=== PATIENT | female | born 1950 | race Caucasian/White ===

== ENCOUNTER 2017-09-07 07:16 | Day surgery (SDC) | payer MEDICARE ==
[2017-09-04 12:52] VITALS: BMI 16.1
[~2017-09-07 07:16] MED LIST: FLU VACC TS2017-18 (>65YR) 0.5 ML SYRINGE IM ONE
[2017-09-07 07:52] VITALS: BP 125/90; TEMP 98.6
--- NOTE | 2017-09-07 11:55 | SPC ---
FLUOROSCOPICALLY GUIDED RIGHT NEPHROSTOMY TUBE EXCHANGE ANTEGRADE RIGHT NEPHROSTOGRAM: 09/07/2017 HISTORY: A 66-year-old female with chronic right ureteral obstruction due to metastatic colon cancer and ovar maeve cancer. This is a routine, periodic nephrostomy tube exchange. TECHNIQUE: Signed informed consent was obtained. The patient requested that no Lidocaine be given because of t he pain the Lidocaine causes during the injection. The existing 8 Jamaican right nephrostomy catheter and the adjacent skin of the right flank were prepped and draped in the usual sterile fashion. The catheter was cut with sterile scissors. A 0.035 inch angled Glidewire was advanced through the exi sting catheter, and loops were formed in the right renal colectomy system. The existing nephrostomy catheter was removed over the guide wire. A new 8 Jamaican nephrostomy tube with soft internal stiff ener was advanced over the guide wire. The stiffener and guide wire were removed. The pigtail loop was formed and locked in place. Contrast was injected and aspirated back, and finally, the tube wa s flushed with normal saline. The patient tolerated the procedure well. No complications. The cat heter was not sutured in place. FINDINGS: Initial image demonstrates the guide wire looped in the right renal collecting system, after removal of the existing catheter. The subsequent series of images demonstrates the new nephrostomy cathete r within a contrast opacified, dilated right renal collecting system. The final image demonstrates post aspiration and post flush image. IMPRESSION: Successful exchange of the right 8 Jamaican nephrostomy tube. POS: [facility]
[2017-09-07] MEDS ORDERED: Iopamidol 370 76% 50 ML VIAL FS ONE (15:07)
== END 2017-09-07 09:45 | disposition home or self-care (01) ==
LOC: SPEC 07:16
PROVIDERS: ATTEND Urology
PROC: BT111ZZ Fluoroscopy of Right Kidney using Low Osmolar Contrast (ICD-10-PCS; principal; 2017-09-07)
PROC: 0T25X0Z Change Drainage Device in Kidney, External Approach (ICD-10-PCS; 2017-09-07)
DX: N13.2 Hydronephrosis with renal and ureteral calculous obstruction (principal); C56.9 Malignant neoplasm of unspecified ovary; C78.5 Secondary malignant neoplasm of large intestine and rectum; F17.200 Nicotine dependence, unspecified, uncomplicated
CPT/HCPCS: 50431; 50435; 75984; C1729; C1769

== ENCOUNTER 2017-10-17 10:30 | Outpatient (CLI) | payer MEDICARE ==
--- NOTE | 2017-10-19 10:30 | PET ---
PET CT: HISTORY: 67-year-old female with colorectal cancer, recent last chemotherapy 3 days ago. Exam requested for re staging. TECHNIQUE: PET scanning with CT attenuation correction was performed from the base of the brain through the prox imal thighs following the intravenous administration of 12 mCi F18-FDG in the right antecubital fossa . Imaging was performed after an uptake interval of 53 minutes. COMPARISON: PET CT dated 04/21/17. FINDINGS: There is continued hypermetabolic activity in the lung nodule in the superior segment of the left low er lobe with a SUV of 9.4 (previously 6.9). No new hypermetabolic lung nodules are seen. No uriel hypermetabolism is seen in the neck, mediastinum, hilar regions, axilla, abdomen, pelvis, or inguinal regions. No hypermetabolic liver, adrenal, or skeletal lesions are identified. There is physiologic activity in the GI and tracts, and visualized portions of the brain. The CT scan used for attenuation correction demonstrates no evidence of pleural effusions or ascites. Nonhypermetabolic pulmonary nodules are stable. A right nephrostomy tube is present. IMPRESSION: Persistent hypermetabolic activity in the left lower lobe lung nodule since 04/21/17 with interval in crease in FDG uptake/SUV. No new lesions are seen. POS: [facility]
== END 2017-10-17 10:31 | disposition home or self-care (01) ==
LOC: PET 10:30
PROVIDERS: ATTEND Internal Medicine Hematology & Oncology
DX: C18.5 Malignant neoplasm of splenic flexure (principal); R91.1 Solitary pulmonary nodule
CPT/HCPCS: 78815; A9552

== ENCOUNTER 2017-10-28 07:34 | Day surgery (SDC) | payer MEDICARE ==
[2017-10-27 09:36] VITALS: BMI 16.0
[2017-10-28 10:02] VITALS: BP 109/82; TEMP 98.6
--- NOTE | 2017-10-28 12:30 | SPC ---
RIGHT PERCUTANEOUS NEPHROSTOMY TUBE REPLACEMENT AND NEPHROSTOGRAM: 10/28/2017 HISTORY: Patient with metastatic colon cancer and right ureteral obstruction. FLUOROSCOPY: Total time is 1.6 minutes with a total dose of 2144 mGy per cm2. TECHNIQUE: After informed consent was obtained, the patient was placed on the angiography table in the prone pos ition. The patient was on Levaquin p.o. prior to this procedure. The right nephrostomy tube and juanita rounding area were meticulously prepped and draped in the usual sterile fashion. The catheter was cl amped and punctured with an 18 gauge needle, and a nephrostogram was performed, demonstrating the coi led portion of the catheter within the right renal pelvis. The catheter was then cut and exchanged o ekaterina an 0.035 inch Prince guide wire for a new 8 Sudanese nephrostomy tube, which was also coiled within the renal pelvis. Contrast injection confirmed placement within the renal pelvis. A small amount o f contrast was injected via the nephrostomy tube, and contrast was noted to flow into the urinary lynnette dder without evidence of obstruction. The nephrostomy tube was flushed and then placed to gravity dr neal. The patient requested that the nephrostomy tube not be secured with suture material. As a r esult, a dry, sterile dressing was placed. The patient was transported to [facility] prior to discharge. FINDINGS: The patient has a right-sided nephrostomy tube in place. A new 8 Sudanese nephrostomy tube was success fully placed. Nephrostogram demonstrated tortuosity of the proximal right ureter, but contrast does extend down the ureter and subsequently into the urinary bladder without forceful injection. IMPRESSION: 1. Technically successful right nephrostomy tube replacement. 2. Contrast injection demonstrates flow of contrast into the urinary bladder without a forceful inje ction. POS: [facility]
--- NOTE | 2017-10-30 11:27 | SPC ---
RIGHT PERCUTANEOUS NEPHROSTOMY TUBE REPLACEMENT AND NEPHROSTOGRAM: 10/28/2017 HISTORY: Patient with metastatic colon cancer and right ureteral obstruction. FLUOROSCOPY: Total time is 1.6 minutes with a total dose of 2144 mGy per cm2. TECHNIQUE: After informed consent was obtained, the patient was placed on the angiography table in the prone pos ition. The patient was on Levaquin p.o. prior to this procedure. The right nephrostomy tube and juanita rounding area were meticulously prepped and draped in the usual sterile fashion. The catheter was cl amped and punctured with an 18 gauge needle, and a nephrostogram was performed, demonstrating the coi led portion of the catheter within the right renal pelvis. The catheter was then cut and exchanged o ekaterina an 0.035 inch Prince guide wire for a new 8 Australian nephrostomy tube, which was also coiled within the renal pelvis. Contrast injection confirmed placement within the renal pelvis. A small amount o f contrast was injected via the nephrostomy tube, and contrast was noted to flow into the urinary lynnette dder without evidence of obstruction. The nephrostomy tube was flushed and then placed to gravity dr neal. The patient requested that the nephrostomy tube not be secured with suture material. As a r esult, a dry, sterile dressing was placed. The patient was transported to [facility] prior to discharge. FINDINGS: The patient has a right-sided nephrostomy tube in place. A new 8 Australian nephrostomy tube was success fully placed. Nephrostogram demonstrated tortuosity of the proximal right ureter, but contrast does extend down the ureter and subsequently into the urinary bladder without forceful injection or pain. IMPRESSION: 1. Technically successful right nephrostomy tube replacement. 2. Contrast injection demonstrates flow of contrast into the urinary bladder without a forceful inje ction.
== END 2017-10-28 10:15 | disposition home or self-care (01) ==
LOC: SPEC 07:34
PROVIDERS: ATTEND Urology
PROC: 0T25X0Z Change Drainage Device in Kidney, External Approach (ICD-10-PCS; principal; 2017-10-28)
DX: N13.1 Hydronephrosis with ureteral stricture, not elsewhere classified (principal); C18.9 Malignant neoplasm of colon, unspecified
CPT/HCPCS: 50434; C1729; 50431; 50435

== ENCOUNTER 2017-12-29 07:14 | Day surgery (SDC) | payer MEDICARE ==
[2017-12-28 14:03] VITALS: BMI 16.0
[~2017-12-29 07:14] MED LIST changes: +Prevnar 13-Val Conj/PF 0.5 ML SYRINGE IM ONE
[2017-12-29 08:58] VITALS: BP 124/73; TEMP 98.8
--- NOTE | 2017-12-29 09:38 | SPC ---
NEPHROSTOMY EXCHANGE: HISTORY: Chronic right-sided hydronephrosis. Metastatic colon cancer with right ureteral obstruction. FLUOROSCOPY TIME: 1.2 minutes, 4724 mGy*^cm2. FINDINGS: Technically successful right nephrostomy exchange. An 8 Palestinian nephrostomy catheter was exchanged fo r another 8 Palestinian catheter. TECHNIQUE: Consent was obtained. The patient was placed on the angiographic table in prone position. The nephr ostomy was prepped and draped in sterile fashion. A nephrostogram was performed demonstrating the co iled portion of the catheter to be in the right intrarenal collecting system. The catheter was then cut and exchanged over a 0.035 short Amplatz wire for a new 8 Palestinian nephrostomy tube which was coile d within the intrarenal collecting system, at the level of the ureteropelvic junction. Contrast inje ction confirmed placement within each renal collecting system. Nephrostomy was then placed to gravit y. IMPRESSION: Successful right nephrostomy tube replacement. POS: [facility]
== END 2017-12-29 09:20 | disposition home or self-care (01) ==
LOC: SPEC 07:14
PROVIDERS: ATTEND Urology
PROC: 0T25X0Z Change Drainage Device in Kidney, External Approach (ICD-10-PCS; principal; 2017-12-29)
DX: N13.1 Hydronephrosis with ureteral stricture, not elsewhere classified (principal); C18.9 Malignant neoplasm of colon, unspecified; F17.210 Nicotine dependence, cigarettes, uncomplicated; Z90.49 Acquired absence of other specified parts of digestive tract; Z98.890 Other specified postprocedural states; Z90.710 Acquired absence of both cervix and uterus; Z82.49 Family history of ischemic heart disease and other diseases of the circulatory system
CPT/HCPCS: 50431; 50435; 75984; C1729

== ENCOUNTER 2018-02-19 14:56 | Inpatient (IN) | payer MEDICARE ==
[~2018-02-19 14:56] MED LIST changes: -FLU VACC TS2017-18 (>65YR) 0.5 ML SYRINGE IM ONE; +ISOVUE-370 76%-LOCM 1 ML ONE; -Prevnar 13-Val Conj/PF 0.5 ML SYRINGE IM ONE
[2018-02-19] MEDS ORDERED: Ondansetron ODT 4 MG TAB ONE ×2 (15:11→17:06)
[2018-02-19 15:37] LABS: #Eosinphils 0.1 thou/uL (0.0-0.7); #Lymphocytes 1.4 thou/uL (1.20-3.40); #Monocytes 0.5 thou/uL (0.11-0.59); #Neutrophils 6.8 thou/uL (1.40-6.50); %Basophils 0.5 % (0.0-1.0); %Eosinophils 0.6 % (0.0-10.0); %Lymphocytes 16.4 % (21.0-51.0); %Monocytes 5.7 % (0.0-10.0); %Neutrophils 76.8 % (42.0-75.0); Hemoglobin 13.9 g/dL (12.0-16.0); Mean Corpuscular HGB CONC 33.7 g/dL (32.0-36.0); Mean Platelet Volume 6.3 fL (7.4-10.4); Platelet Count 173 thou/uL (130-400); RBC Distribution Width 12.8 % (11.5-14.5); Red Blood Cell (RBC) Count 4.49 mill/uL (4.20-5.40); White Blood Cell (WBC) Count 8.8 thou/uL (4.8-10.8)
[2018-02-19] MEDS ORDERED: Ondansetron HCl/PF 4 MG/2 ML Vial ONE (15:51)
[2018-02-19] MEDS ORDERED: Lidocaine 1% PF 5 ML VIAL ONE (15:51)
[2018-02-19] MEDS ORDERED: PROPOFOL 200 MG/20 ML VIAL ONE (15:51)
[2018-02-19] MEDS ORDERED: Succinylcholine Chloride 20 MG/ML 10 ml SYRINGE FS ONE (15:51)
[2018-02-19] MEDS ORDERED: Glycopyrrolate 0.2 MG/ML 5 ML SYRINGE ONE (15:51)
[2018-02-19] MEDS ORDERED: Dexamethasone 20 MG/5 ML VIAL ONE (15:51)
[2018-02-19] MEDS ORDERED: PHENYLEPHRINE-NS 100 MCG/ML 10 ML SYRINGE ONE (15:51)
[2018-02-19 16:04] LABS: ALT (SGPT) 31 U/L (8-55); AST (SGOT) 33 U/L (5-34); Albumin 4.2 g/dL (3.4-4.8); Alkaline Phosphatase 250 U/L (40-150); Anion Gap 17 mmol/L (10-20); BUN (Urea Nitrogen) 23 mg/dL (9.8-20.1); Bilirubin, Total 0.6 mg/dL (0.2-1.2); Calc. Creatinine Clearance 0 mL/min (70-130); Calcium 10.2 mg/dL (7.8-10.44); Carbon Dioxide 24 mmol/L (23-31); Chloride 101 mmol/L (98-107); Estimated GFR-MDRD 37; Globulin 3.4 g/dL (2.4-3.5); Glucose 143 mg/dL (80-115); Lipase 39 U/L (8-78); Potassium 3.9 mmol/L (3.5-5.1); Protein, Total 7.6 g/dL (6.0-8.3); Sodium 138 mmol/L (136-145)
[2018-02-19] MEDS ORDERED: Morphine 4 MG/ML VIAL ONE (17:06)
[2018-02-19] MEDS ORDERED: Ondansetron ODT 8 MG TAB ONE (17:09)
[2018-02-19] MEDS ORDERED: cefOXitin 2 GM, Syringe 1 ML in Sterile Water 10 ML SLOW IVP SCH (19:00)
[2018-02-19 19:01] LABS: Bilirubin Negative (Negative); Blood, Urine Trace (Negative); Clarity CLEAR (Clear); Glucose, Urine (Dipstick) Negative (Negative); Leukocyte Small (Negative); Nitrite Positive (Negative); Protein, Urine (Dipstick) 30 mg/dL (Neg-Trace)
[2018-02-19 19:04] LABS: Bacteria/HPF Rare-Few HPF (None Seen); Hyaline Casts/LPF 0-3 HYALINE CAST LPF (0-3 Hyaline); Pathc Cast-AUWi Flag 0.29 (0-2.49); Squamous Epithelial None Seen HPF (0-3); WBC/HPF 21-50 HPF (0-3)
[2018-02-19 19:06] LABS: Specific Gravity, Urine Greater than 1.060 (1.002-1.036)
--- NOTE | 2018-02-19 19:07 | CT ---
CT ABDOMEN AND PELVIS WITH IV CONTRAST 02/19/18 HISTORY: Abdominal pain. Multiple previous surgeries. COMPARISON: 02/23/17. FINDINGS: Emphysematous changes and calcified granulomata are apparent at the lung bases. Hemangiomas within th e liver are again seen. Gallbladder is surgically absent with distention of the biliary system. Long standing right percutaneous nephrostomy drain remains in good position with decompression of the righ t renal collecting system. Urinary bladder is decompressed. There is calcification in the arterial structures. Degenerative patterson ges of the lumbar spine. Lack of oral contrast limits evaluation of the bowel. Postoperative changes are apparent. Just above the dome of the urinary bladder, adjacent loops of small bowel are somewhat distended, measuring up t o 3.0 cm with a small amount of adjacent fluid. IMPRESSION: 1. Focal adjacent loops of dilated small bowel within the lower anterior pelvis having the appea jelly of a closed loop obstruction. Extensive postoperative changes of the bowel are also evident. Pl ease consider surgical evaluation. 2. Other chronic type findings are stable. POS: [facility]
[2018-02-19] MEDS ORDERED: Fentanyl 100 MCG/2 ML VIAL ONE ×2 (19:12→21:01)
[2018-02-19] MEDS ORDERED: Fentanyl 250 MCG/5 ML VIAL ONE (19:23)
[2018-02-19] MEDS ORDERED: SUGAMMADEX SODIUM 500 MG/5 ML VIAL ONE (20:32)
[2018-02-19] MEDS ORDERED: Zolpidem Tartrate 5 MG TAB PO PRN (20:33)
[2018-02-19] MEDS ORDERED: Promethazine HCl 25 MG/ML VIAL IM PRN ×3 (20:33→22:21)
[2018-02-19] MEDS ORDERED: Ondansetron HCl/PF 4 MG/2 ML Vial IVP PRN ×3 (20:33→22:21)
[2018-02-19] MEDS ORDERED: diphenhydrAMINE 50 MG/ML VIAL IVP PRN (20:33)
[2018-02-19] MEDS ORDERED: diphenhydrAMINE 50 MG/ML VIAL IM PRN (20:33)
[2018-02-19] MEDS ORDERED: diphenhydrAMINE 25 MG CAP PO PRN (20:33)
[2018-02-19] MEDS ORDERED: Promethazine HCl 25 MG/ML VIAL SLOW IVP PRN (20:33)
[2018-02-19] MEDS ORDERED: Fentanyl 5000 MCG/250 ML CADD IVPB PRN (20:33)
[2018-02-19] MEDS ORDERED: Naloxone HCl 0.4 mg/ml Vial IV PRN (20:33)
[2018-02-19] MEDS ORDERED: Labetalol HCl 100 MG/20 ML VIAL SLOW IVP PRN (20:43)
[2018-02-19] MEDS ORDERED: fentaNYL Citrate/PF 2,000 MCG in Sodium Chloride 0.9% 60 ML IV PRN (20:45)
[2018-02-19] MEDS ORDERED: Communication Order-Pharmacy FS SCH (20:45)
--- NOTE | 2018-02-19 21:27 | HP ---
DATE OF ADMISSION: 02/19/2018 CHIEF COMPLAINT: Abdominal pain. HISTORY OF PRESENT ILLNESS: Ms. Pinon is a 67-year-old female with a history of known colon cancer operated on her colon twice. She had an anastomotic recurrence. She has metastatic to lung and darvin er. She has evidence of right uretero-chronic obstruction and has percutaneous nephrostomy tube in [facility] by Dr. Scruggs. She presents with acute onset of severe sharp mid-lower abdominal pain that is crampy, severe, associated with nausea, but no vomiting. Seen in the emergency department where labs are normal, she is tachycardic. She has had normotensive, but her CT shows closed-loop obstruction. She has not had previous small bowel obstructions. PAST MEDICAL HISTORY: Includes colon cancer. PAST SURGICAL HISTORY: As above. MEDICINES TAKEN DAILY: P.r.n. Zofran, p.r.n. Tylenol. ALLERGIES TO MEDICINES: No known drug allergies. SOCIAL HISTORY: No smoking, alcohol, or other drugs. REVIEW OF SYSTEMS: Ten-system review of systems, otherwise negative unless described above. PHYSICAL EXAMINATION: VITAL SIGNS: Her pulse is 100, her respirations are 12, her blood pressure is 120/80. She is afebri le. HEENT: Sclerae anicteric. Oropharynx clear. NECK: No lymphadenopathy. CHEST: Clear. HEART: Regular rate and rhythm. ABDOMEN: Soft, distended, lower abdominal guarding, and peritoneal signs. No abdominal or inguinal hernias. EXTREMITIES: No ischemia or edema to extremities. LABORATORY DATA: Sodium 138, potassium 3.9, creatinine 1.4. White blood cell count is 8, hemoglobin 13, platelet count is 173. CT scan as above. ASSESSMENT: 1. Closed-loop obstruction, small-bowel obstruction. 2. History of colon cancer. PLAN: Exploratory laparotomy urgently. Risks, benefits, alternatives discussed. She gives consent, we will do this tonight.
[2018-02-19] MEDS ORDERED: Dextrose 50% Abboject 50 ML SYRINGE SLOW IVP PRN (22:21)
[2018-02-19] MEDS ORDERED: cefOXitin 2 GM in Sodium Chloride 0.9% 100 ML IVPB SCH (22:21)
[2018-02-19] MEDS ORDERED: Acetaminophen 1,000 MG in Premix Bag 1 BAG IVPB PRN (22:21)
[2018-02-19] MEDS ORDERED: Famotidine/PF 20 mg/2ml Vial SLOW IVP SCH (22:21)
[2018-02-19] MEDS ORDERED: Dextrose 5% in Water 1,000 ML IV PRN (22:21)
[2018-02-19] MEDS ORDERED: hydrALAZINE 20 MG/ML VIAL SLOW IVP PRN (22:21)
[2018-02-19] MEDS: D5 1/2 NS w/20 mEq KCL 1,000 ML IV SCH (23:01)
[2018-02-19] MEDS ORDERED: Pantoprazole 40 MG VIAL IVP SCH (23:15)
--- NOTE | 2018-02-19 23:33 | OP ---
DATE OF PROCEDURE: 02/19/2018 PREOPERATIVE DIAGNOSIS: Closed loop small-bowel obstruction. POSTOPERATIVE DIAGNOSIS: Closed loop small-bowel obstruction. PROCEDURE: Exploratory laparotomy, lysis of interloop adhesions. SURGEON: Destin Mendoza M.D. ANESTHESIA: General. ESTIMATED BLOOD LOSS: Minimal. COMPLICATIONS: None. FINDINGS: There is a loop of small intestine that has gangrenous changes. After the intestine, the adhesion was cut and it was unraveled, the ischemia does go away. There is no evidence of perforatio n or end-organ damage or gangrene. TECHNIQUE: The patient was taken to the operating room and placed supine on the table. After genera l anesthetic was obtained, a Parekh was placed and NG tube was placed. The abdomen was prepped and dr aped in a sterile fashion. Midline incision is made above to below umbilicus. Cautery was used diss ect down to carefully into the abdominal cavity without injury. There were no intra-abdominal adhesi ons to the posterior peritoneum. However, there were couple interloop adhesions that were taken down . There was a gangrenous appearing segment in the lower abdomen that was pulled up in the wound. Th e adhesion was cut, allowing it to untwist, it was then watched for approximately 5-10 minutes and th e gangrenous changes went away. It was only ischemic. All other adhesions were taken down in the ab domen there were not many others. There was no evidence of perforation or damage to the segment of b owel. There was no perforation, no intraabdominal infection or obvious malignancy. The abdomen is i rrigated using sterile solution. Seprafilm was left on top of intra-abdominal structures before clos ure. PDS was used to close the fascial defect from the top and bottom tied in the middle. Subcutane ous tissues were irrigated and closed using 3-0 Vicryl, 4-0 Monocryl, and Dermabond. The patient was en route to recovery in stable condition. All instrument counts, needle counts, lap counts are jeimy ect.
[2018-02-20] MEDS ORDERED: cefOXitin 2 GM, Syringe 1 ML in Sterile Water 10 ML SLOW IVP SCH (04:00)
[2018-02-20] MEDS: D5 1/2 NS w/20 mEq KCL 1,000 ML IV SCH ×3 (05:05→16:49)
[2018-02-20 06:13] LABS: Anion Gap 11 mmol/L (10-20); BUN (Urea Nitrogen) 27 mg/dL (9.8-20.1); Calc. Creatinine Clearance 23 mL/min (70-130); Calcium 9.2 mg/dL (7.8-10.44); Carbon Dioxide 23 mmol/L (23-31); Chloride 108 mmol/L (98-107); Estimated GFR-MDRD 30; Glucose 210 mg/dL (80-115); Sodium 137 mmol/L (136-145)
[2018-02-20 06:21] LABS: Band 34 % (5-11); Hemoglobin 13.7 g/dL (12.0-16.0); Lymphocytes 5 % (21-51); MDiff Complete? YES; Mean Corpuscular HGB CONC 33.7 g/dL (32.0-36.0); Mean Platelet Volume 6.3 fL (7.4-10.4); Monocytes 24 % (0-10); Myelocyte 3 % (0-0); Neutrophil 34 % (42-75); PLT Morphology Comment Appears Adequate; Platelet Count 158 thou/uL (130-400); RBC Distribution Width 12.9 % (11.5-14.5); RBC Morphology Normal; Red Blood Cell (RBC) Count 4.41 mill/uL (4.20-5.40); White Blood Cell (WBC) Count 6.5 thou/uL (4.8-10.8)
[2018-02-20] MEDS ORDERED: cefOXitin Sodium 1 GM in Sodium Chloride 0.9% 100 ML IVPB SCH (09:30)
--- NOTE | 2018-02-20 09:31 | PDOC.GSPN ---
Surgery Progress Note: Subj - Subjective Narrative: POD#1 ex lap for closed loop obstruction. No nausea. C/O incisional pain Surgery Progress Note: Obj - Vital signs Vital signs: Vital Signs - Most Recent Temp Pulse Resp BP Pulse Ox 98.4 F 105 H 18 123/76 95 02/20/18 07:43 02/20/18 07:43 02/20/18 07:43 02/20/18 07:43 02/20/18 07:43 - Physical Exam General: no distress Cardiovascular: regular rate and rhythm Respiratory: clear to auscultation Abdomen: soft, decreased bowel sounds, appropriately tender Wound: dressing clean,dry,intact Surgery Progress Note: Results - Labs Result Diagrams: 02/20/18 05:29 02/20/18 05:29 Lab results: Laboratory Results - last 24 hr 02/20/18 02/20/18 05:29 05:29 WBC 6.5 RBC 4.41 Hgb 13.7 Hct 40.6 MCV 92.0 MCH 31.0 MCHC 33.7 RDW 12.9 Plt Count 158 MPV 6.3 L Neutrophils % (Manual) 34 L Band Neuts % (Manual) 34 H Lymphocytes % (Manual) 5 L Monocytes % (Manual) 24 H Myelocytes % 3 H Plt Morphology Comment Appears Adequate RBC Morph Comment Normal Sodium 137 Potassium 5.0 Chloride 108 H Carbon Dioxide 23 Anion Gap 11 BUN 27 H Creatinine 1.72 H Estimated GFR (MDRD) 30 Glucose 210 H Calcium 9.2 Surgery Progress Note: A/P - Problem (1) Small bowel obstruction with strangulation or infarction Current Visit: Yes Code(s): [id number] - Status: Acute Assessment and Plan: DC NG, keep chatterjee till tomorrow. Mobilize today. Start clears tomorrow if doing well. Creatinine up to 1.7 not on any nephrotoxic drugs.
[2018-02-20] MEDS ORDERED: cefOXitin Sodium 1 GM, Syringe 0.5 ML in Sterile Water 10 ML SLOW IVP SCH (10:00)
[2018-02-20] MEDS: cefOXitin Sodium 1 GM, Syringe 0.5 ML in Sterile Water 10 ML SLOW IVP SCH ×2 (13:44→21:14)
[2018-02-20 18:07] LABS: Anion Gap 14 mmol/L (10-20); BUN (Urea Nitrogen) 23 mg/dL (9.8-20.1); Calc. Creatinine Clearance 45 mL/min (70-130); Calcium 8.9 mg/dL (7.8-10.44); Carbon Dioxide 18 mmol/L (23-31); Chloride 108 mmol/L (98-107); Estimated GFR-MDRD 66; Glucose 142 mg/dL (80-115); Sodium 135 mmol/L (136-145)
[2018-02-20] MEDS ORDERED: Pantoprazole 40 MG VIAL IVP SCH (21:00)
[2018-02-20] MEDS: Heparin 5,000 UNITS/ML VIAL SC SCH (21:14)
[2018-02-21 04:36] LABS: Anion Gap 8 mmol/L (10-20); BUN (Urea Nitrogen) 17 mg/dL (9.8-20.1); Calc. Creatinine Clearance 55 mL/min (70-130); Calcium 9.1 mg/dL (7.8-10.44); Carbon Dioxide 25 mmol/L (23-31); Chloride 105 mmol/L (98-107); Estimated GFR-MDRD 82; Glucose 115 mg/dL (80-115); Potassium 4.7 mmol/L (3.5-5.1); Sodium 133 mmol/L (136-145)
[2018-02-21 05:05] LABS: #Monocytes 0.3 thou/uL (0.11-0.59); #Neutrophils 6.3 thou/uL (1.40-6.50); %Basophils 0.2 % (0.0-1.0); %Eosinophils 0.1 % (0.0-10.0); %Lymphocytes 12.7 % (21.0-51.0); %Monocytes 4.1 % (0.0-10.0); %Neutrophils 82.9 % (42.0-75.0); Hemoglobin 10.6 g/dL (12.0-16.0); Mean Corpuscular Hemoglobin 32.2 pg (27.0-31.0); Mean Corpuscular Volume 94.7 fl (81.0-99.0); Mean Platelet Volume 6.9 fL (7.4-10.4); PLT Morphology Comment Appears Decreased; Platelet Count 110 thou/uL (130-400); RBC Distribution Width 12.9 % (11.5-14.5); RBC Morphology Normal; White Blood Cell (WBC) Count 7.6 thou/uL (4.8-10.8)
[2018-02-21] MEDS: cefOXitin Sodium 1 GM, Syringe 0.5 ML in Sterile Water 10 ML SLOW IVP SCH ×2 (05:48→16:10)
[2018-02-21] MEDS: Heparin 5,000 UNITS/ML VIAL SC SCH (09:32)
[2018-02-21] MEDS: D5 1/2 NS w/20 mEq KCL 1,000 ML IV SCH (09:38)
--- NOTE | 2018-02-21 13:00 | PDOC.EVN ---
Event Note - Event Note Event Note: Called because patient tachy to 140's 150's. Complaining of persistent severe abdominal pain. BP normal but now having more dyspnea. Abdomen tender mostly incisional. WBC more normal today. Creatinine normal in am. Plan second look laparotomy to rule out persistent or worsening ischemia to mid small bowel. If negative plan CT chest to rule out PE. Risks, benefits, alternatives discussed.
[2018-02-21] MEDS ORDERED: Norepinephrine 8 MG/0.9% NS 250 ML ONE (13:54)
[2018-02-21] MEDS ORDERED: Sedation Protocol FS ONE (14:49)
[2018-02-21] MEDS ORDERED: Promethazine HCl 25 MG/ML VIAL IM PRN (14:49)
[2018-02-21] MEDS ORDERED: Dextrose 5% in Water 1,000 ML IV PRN (14:49)
[2018-02-21] MEDS ORDERED: Dextrose 50% Abboject 50 ML SYRINGE SLOW IVP PRN (14:49)
[2018-02-21] MEDS ORDERED: HumaLOG 300 UNITS/3 ML VIAL SC PRN (14:49)
[2018-02-21] MEDS ORDERED: hydrALAZINE 20 MG/ML VIAL SLOW IVP PRN (14:49)
[2018-02-21] MEDS ORDERED: Ondansetron HCl/PF 4 MG/2 ML Vial IVP PRN (14:49)
[2018-02-21] MEDS ORDERED: Norepinephrine 8 MG/0.9% NS 250 ML IVPB SCH (15:00)
[2018-02-21] MEDS ORDERED: Fentanyl 100 MCG/2 ML VIAL ONE (15:07)
--- NOTE | 2018-02-21 15:30 | RAD ---
CHEST 1 VIEW: Date: 02/21/18 HISTORY: Chest pain. Intubated. COMPARISON: 02/23/14. FINDINGS: Cardiac silhouette is magnified by projection. Pulmonary vasculature is unremarkable. Mediastinum is midline. Tip of an endotracheal catheter overlies the thoracic inlet. Nasogastric tube descends to th e stomach. Right internal jugular Port-A-Cath is in place. Calcified granulomata throughout the lungs are consistent with healed granulomatous disease. Small amount of bilateral pleural fluid with bibas ilar atelectasis. manager fleet leads overlie the chest. IMPRESSION: 1. Small bilateral pleural effusions. 2. Endotracheal catheter is in good radiographic position. POS: [facility]
--- NOTE | 2018-02-21 15:36 | OP ---
DATE OF PROCEDURE: 02/21/2018 PREOPERATIVE DIAGNOSES: Peritonitis, tachycardia, dyspnea. POSTOPERATIVE DIAGNOSES: Gangrenous changes to the small bowel mesentery with patchy areas of minima l necrosis. PROCEDURES PERFORMED: Exploratory laparotomy, small bowel resection. SURGEON: Danielle Mendoza ANESTHESIA: General. ESTIMATED BLOOD LOSS: Minimal. COMPLICATIONS: None. SPECIMEN: Small bowel. FINDINGS: In the area of previous ischemic change, the small bowel as a whole appears viable; howeve r, the mesentery appears gangrenous with some air trapped under the mesenteric peritoneum, there may be some patchy areas of necrosis on the mesenteric border of the small bowel. TECHNIQUE: The patient was taken to the operating room and placed supine on the table. After genera l anesthetic was obtained, the abdomen was prepped and draped in a sterile fashion. Midline incision reopened into the abdominal cavity. Small bowel eviscerated. The previous small bowel ischemic are a, the antimesenteric side appears viable; however, on the mesenteric side, there is evidence of gang renous type changes to the mesenteric fat. There is some air trapped in the fat as well, but there i s a significant amount of turbid-looking fluid in the abdomen. The abdomen is irrigated copiously us ing sterile solution. There was no evidence of perforation. A KRIS-75 stapler was fired proximally a nd distally to this area of previous ischemia and mesenteric changes. The mesentery is taken using t he impact LigaSure. Small bowel was able to be brought up along itself in an antimesenteric fashion and enterotomies were made on the antimesenteric and KRIS-75 was used to form the anastomosis. GA-60 is closed to close the common enterotomy. Interrupted silk sutures used to invert the ends placed in the crotch and closed the mesenteric defect. The staple line appears viable. The abdomen was irrig ated until returns are clear. The small bowel was placed back in its normal orientation. All instru ment counts, needle counts, lap counts are correct. PDS was used to close the fascial defect from to p and bottom and tied in the middle. Subcutaneous tissues were irrigated and closed using estrada. The patient en route to the ICU in critical, but stable condition. All instrument counts, needle cou nts, lap counts are correct.
[2018-02-21] MEDS ORDERED: Propofol 1,000 MG/100 ML VIAL IV ONE (15:42)
[2018-02-21] MEDS ORDERED: DISCONTINUE PREVIOUS NARCOTIC PAIN MEDICATIONS AND BENZODIAZEPINES FS SCH (15:48)
[2018-02-21] MEDS ORDERED: Fentanyl BOLUS 250 ML IVPB PRN (15:48)
[2018-02-21] MEDS ORDERED: Lorazepam 2 MG/ML VIAL SLOW IVP PRN (15:48)
[2018-02-21] MEDS ORDERED: fentaNYL Citrate/PF 2,000 MCG in Sodium Chloride 0.9% 60 ML IV SCH (15:48)
[2018-02-21] MEDS ORDERED: Propofol 1,000 MG/100 ML VIAL IV PRN (15:48)
[2018-02-21] MEDS ORDERED: Morphine 4 MG/ML VIAL SLOW IVP PRN (15:50)
[2018-02-21] MEDS ORDERED: TETANUS AND DIPHTHERIA TOX/PF 0.5 ML DISP.SYRIN IM ONE (16:00)
[2018-02-21 16:04] LABS: Actual Bicarbonate (HCO3a) 23.1 mEq/L (22-26); Base Excess (BEa) -2.9 mEq/L (0 (+/-) 2.5); CO2 Tension 44.7 mmHg (35.0-45.0); Hemoglobin (Hb) 10.7 g/dL (12.0-16.0); pH, Arterial 7.33 (7.35-7.45)
[2018-02-21 16:05] LABS: ALV-art Gradient 302.925 (0-20); Calcium, Ionized 1.3 mmol/L (1.12-1.30); Puncture Site RRA
[2018-02-21] MEDS: Sodium Chloride 0.9% 1,000 ML IV SCH ×2 (16:08→23:52)
[2018-02-21] MEDS ORDERED: Adacel (T-DAP) 0.5 ML VIAL IM ONE (16:15)
[2018-02-21] MEDS ORDERED: PROPOFOL 200 MG/20 ML VIAL ONE (17:07)
[2018-02-21] MEDS ORDERED: Lidocaine 1% PF 5 ML VIAL ONE (17:07)
[2018-02-21] MEDS: Piperacillin/Tazobactam 3.375 GM in Sodium Chloride 0.9% 100 ML IVPB SCH ×2 (18:06→23:51)
[2018-02-21] MEDS: Enoxaparin Sodium 40 MG/0.4 ML SYRINGE SC SCH (20:37)
[2018-02-22] MEDS: Piperacillin/Tazobactam 3.375 GM in Sodium Chloride 0.9% 100 ML IVPB SCH ×3 (05:43→17:18)
[2018-02-22 06:28] LABS: Actual Bicarbonate (HCO3a) 22.8 mEq/L (22-26); Base Excess (BEa) -2.8 mEq/L (0 (+/-) 2.5); CO2 Tension 42.9 mmHg (35.0-45.0); Hematocrit-ABG 24.6 % (36.0-47.0); O2 Tension (PaO2) 91.6 mmHg (80.0-100.0); pH, Arterial 7.34 (7.35-7.45)
[2018-02-22 06:29] LABS: ALV-art Gradient 137.975 (0-20); Calcium, Ionized 1.3 mmol/L (1.12-1.30); Puncture Site RR
--- NOTE | 2018-02-22 08:13 | RAD ---
SINGLE VIEW OF CHEST: Date: 02/22/18 COMPARISON: 02/21/18. HISTORY: Ventilated patient with respiratory failure. FINDINGS: Single view of the chest shows cardiomediastinal silhouette which is upper limits of normal in size. Lines and tubes are unchanged in position. MediPort is unchanged in position. There appear to be smal l bilateral pleral effusions, unchanged. IMPRESSION: Stable exam with small bilateral pleural effusions. POS: [facility]
[2018-02-22] MEDS: Pantoprazole 40 MG VIAL IVP SCH (08:14)
[2018-02-22] MEDS: Sodium Chloride 0.9% 1,000 ML IV SCH ×2 (08:15→17:18)
--- NOTE | 2018-02-22 09:21 | CON ---
DATE OF CONSULTATION: 02/21/2018 HISTORY OF PRESENT ILLNESS: Estee Pinon is a 67-year-old female, status post lap. She was taken to surgery on 02/19/2018 with abdominal pain, extensive history is well outlined by Dr. Mendoza, closed loop obstruction, small-bowel obstruction, history of colon cancer. She is doing well postop. She had ongoing abdominal pain. CT of the abdomen was done that was concern about ongoing focal dilated small bowels anterior pelvis small bowel obstruction. She was taken to surgery where she underwent resection and end-to-end anastomosis, so she was left on the vent overnight. The patient is presently sedated on the vent. To note, there are no family members present at the bedside. PAST MEDICAL HISTORY: Pertinent for history of colon cancer. She has mets to both liver and the lungs, is undergoing chemotherapy. Additionally, she has had history of right uretero-chronic obstruction with percutaneous nephrostomy tube placed by local urologist. PAST SURGICAL HISTORY: Otherwise included appendix, gallbladder, tubal ligation , colon resection 2011, hysterectomy, cystoscopy previous. FAMILY HISTORY: Unremarkable for any diabetes, hypertension or colon adenocarcinoma. SOCIAL HISTORY: She apparently smokes a pack and half a day for many years, continues to smoke, but apparently no prior history of TB exposure. Alcohol, none. ALLERGIES: None. REVIEW OF SYSTEMS: Unobtainable. PHYSICAL EXAMINATION: GENERAL: She is intubated on the vent, sedated on Diprivan and fentanyl. VITAL SIGNS: Pulse is 124, blood pressure is 94/61, sats 100%, afebrile. HEENT: Pupils are equal. NEUROLOGIC: She is sedated. CHEST: Decreased breath sounds, no wheezing. CARDIAC: Normal S1, S2, no gallops. ABDOMEN: Soft. EXTREMITIES: No edema. LABORATORY DATA: White count 10,000, H and H of 10 and 31, platelet count is low 110. PO2 of 69, pCO2 of 44, pH of 7.33, rate of 12, 60%. Sodium is 133. Electrolytes are normal. IMPRESSION: 1. Status post recurrent lap, small-bowel obstruction. 2. Metastatic colon cancer. 3. Left pleural effusion. 4. Tobacco abuse, probably chronic obstructive pulmonary disease. PLAN: As per Dr. Mendoza's discussion, we will leave the patient on the vent overnight. Continue IV antibiotics, vent support, neb treatments. Hopefully, we can wean and extubate in the next 24-48 hours. This is a 45-minute critical care time. LUCIO
[2018-02-22] MEDS ORDERED: DC Sedation Protocol FS ONE (09:41)
[2018-02-22] MEDS ORDERED: Morphine 4 MG/ML VIAL SLOW IVP PRN (09:41)
[2018-02-22] MEDS ORDERED: Albumin 25% 25 GM/100 ML BOT IVPB SCH (10:05)
--- NOTE | 2018-02-22 10:38 | PRG ---
DATE OF SERVICE: 02/22/2018 SUBJECTIVE: Ms. Pinon is extubated this morning, but sleeping comfortably. PHYSICAL EXAMINATION: VITAL SIGNS: Her pulse remains elevated into the 120s even with full of sedation. Her blood pressur e is stable. Urine output is adequate. ABDOMEN: Soft, appropriately tender. Wounds are dressed and clear. LABORATORY DATA: White blood cell count is 7.6, hemoglobin 10.6, platelet count is 110, sodium 130. ASSESSMENT: Postop day #1, small bowel resection which was a second look for ischemic bowel after a closed loop obstruction. PLAN: Continue NG tube. We are going to attempt to give some albumin for volume expansion. Stay in the ICU today.
[2018-02-22] MEDS: Hydrocortisone Sod Succ/PF 100 mg/2 ml Vial IVP SCH ×2 (11:17→17:18)
--- NOTE | 2018-02-22 12:12 | PRG ---
DATE OF SERVICE: 02/21/2018 SUBJECTIVE: Ms. Pinon has been tachycardic overnight. Her hemoglobin is stable. Blood pressures have been stable. Complaining of quite severe incisional pain. Denies nausea. I removed her NG tub e yesterday. Her urine output has been adequate. OBJECTIVE: VITAL SIGNS: Blood pressure is 107/67. She is afebrile at 98.1 and pulse 122. She is 92% to 93% on room air. Urine output is brisk 825 overnight. No bowel movements yet. HEART: Increased rate, regular rhythm without murmur. CHEST: Clear. ABDOMEN: Soft, only minimally distended with decreased bowel sounds, appropriate incisional tenderne ss. LABORATORY DATA: White blood cell count is 7, hemoglobin 10, platelet count is 110. No bands today. Sodium 133, potassium is 4.7, creatinine is normal now at 0.71. ASSESSMENT: Postop day #2, lysis of adhesions for a closed loop obstruction that was ischemic, altho ugh the ischemia resolved, now tachycardic, but hemoglobin is stable. I checked a free cortisol yest erday that was normal and appropriate. PLAN: Continue observation. I do not think she needs any more IV fluids. Her urine output is brisk . Her creatinine has resolved. Her infectious count is normalizing. I suspect her tachycardia will improve as her bloating improves and pain improves.
[2018-02-22] MEDS: Acetaminophen 650 MG in Premix Bag 1 BAG IVPB PRN ×2 (14:43→20:31)
--- NOTE | 2018-02-22 15:24 | PRG ---
DATE OF SERVICE: 02/22/2018 SUBJECTIVE: Pinon is intubated on the vent. PHYSICAL EXAMINATION: VITAL SIGNS: Pulse 115, blood pressure 89/54, sats are 99%, respirations 18. GENERAL APPEARANCE: He is awake, alert, responsive. His I's and O's are 1855 in and 1330 out. CHEST: Reveals rhonchi and crackles, left greater than right. CARDIAC: Normal S1, S2, no gallops. ABDOMEN: No masses. LABORATORY DATA AND IMAGING DATA: PO2 is 91, pCO2 of 42, pH of 7.34, rate of 12, 40% FiO2. Glucose is 91. X-ray shows a left-sided infiltrate, pleural effusion. IMPRESSION: 1. Status post lap x2, peritonitis. 2. Metastatic cancer. 3. Left pneumonia, effusion. PLAN: We will try and wean and extubate today. Otherwise, pain relief, supportive care. Continue a ntibiotics. One-half hour critical care time.
[2018-02-22] MEDS: Enoxaparin Sodium 40 MG/0.4 ML SYRINGE SC SCH (20:31)
[2018-02-23] MEDS: Hydrocortisone Sod Succ/PF 100 mg/2 ml Vial IVP SCH ×5 (00:20→23:58)
[2018-02-23] MEDS: Piperacillin/Tazobactam 3.375 GM in Sodium Chloride 0.9% 100 ML IVPB SCH ×5 (00:20→23:58)
[2018-02-23] MEDS: Sodium Chloride 0.9% 1,000 ML IV SCH ×2 (04:42→11:51)
[2018-02-23] MEDS: Acetaminophen 650 MG in Premix Bag 1 BAG IVPB PRN (04:44)
[2018-02-23 05:27] LABS: #Lymphocytes 0.5 thou/uL (1.20-3.40); #Monocytes 0.2 thou/uL (0.11-0.59); #Neutrophils 4.5 thou/uL (1.40-6.50); %Eosinophils 0.1 % (0.0-10.0); %Lymphocytes 8.9 % (21.0-51.0); %Monocytes 3.2 % (0.0-10.0); %Neutrophils 87.8 % (42.0-75.0); Mean Corpuscular HGB CONC 34.2 g/dL (32.0-36.0); Mean Corpuscular Hemoglobin 31.4 pg (27.0-31.0); Mean Corpuscular Volume 91.7 fl (81.0-99.0); Mean Platelet Volume 6.5 fL (7.4-10.4); Platelet Count 110 thou/uL (130-400); RBC Distribution Width 12.4 % (11.5-14.5); Red Blood Cell (RBC) Count 2.56 mill/uL (4.20-5.40); White Blood Cell (WBC) Count 5.1 thou/uL (4.8-10.8)
[2018-02-23 05:30] LABS: Anion Gap 13 mmol/L (10-20); BUN (Urea Nitrogen) 25 mg/dL (9.8-20.1); Calc. Creatinine Clearance 57 mL/min (70-130); Calcium 8.7 mg/dL (7.8-10.44); Carbon Dioxide 20 mmol/L (23-31); Chloride 110 mmol/L (98-107); Estimated GFR-MDRD 82; Glucose 86 mg/dL (80-115); Potassium 3.5 mmol/L (3.5-5.1); Sodium 139 mmol/L (136-145)
[2018-02-23] MEDS: Pantoprazole 40 MG VIAL IVP SCH (08:54)
--- NOTE | 2018-02-23 12:53 | PRG ---
DATE OF SERVICE: 02/23/2018 Ms. Pinon is much more awake today. She is complaining of pain, although not as severe as before. Her pulse is now more normal. PHYSICAL EXAMINATION: VITAL SIGNS: Pulse is 96, blood pressure 141/73. She is afebrile. Urine output is adequate. NG output is 300 per shift. White blood cell count is 5. ABDOMEN: Soft. Dressings are clean, dry, and intact. LABORATORY: White blood cell count is 5, hemoglobin is 8, platelet count is 110, sodium 139, potassi um 3.5, creatinine 0.7. ASSESSMENT: Postop day #2 reexploration, small bowel resection. PLAN: Improved clinically, will move to surgery floor. We will remove NG tube and have FOUNTAIN DISPENSER for pain control.
[2018-02-23] MEDS ORDERED: Fentanyl 100 MCG/2 ML VIAL SLOW IVP PRN (12:57)
[2018-02-23] MEDS: D5 1/2 NS w/20 mEq KCL 1,000 ML IV SCH (13:09)
--- NOTE | 2018-02-23 14:04 | PRG ---
DATE OF SERVICE: 02/23/2018 SUBJECTIVE: This morning, she is better, awake, alert, responsive. OBJECTIVE: VITAL SIGNS: Blood pressure improved 146/67, sats 98%, temperature 98, pulse 80. I's and O's 3170 i n and 2015 out. CHEST: Decreased breath sounds, no wheezing. CARDIAC: Normal S1 and S2. No gallops. ABDOMEN: Soft. No masses. LABORATORY DATA: White count 5000, H and H 8 and 23, platelet count is 110,000. IMPRESSION: 1. Status post laparotomy for metastatic disease, ischemic bowel. 2. Respiratory failure. 3. Left pleural effusion. 4. Relative adrenal insufficiency. PLAN: Cortisol level was 15 with blood pressure in the 90 systolic. Continue antibiotics, nebulizer treatments, supportive care. She probably can be transferred out of the ICU to surgical floor. Pulmonary will follow.
[2018-02-23] MEDS: Enoxaparin Sodium 40 MG/0.4 ML SYRINGE SC SCH (21:24)
[2018-02-23] MEDS ORDERED: Furosemide 20 MG/2 ML VIAL SLOW IVP SCH (23:45)
[2018-02-24] MEDS: D5 1/2 NS w/20 mEq KCL 1,000 ML IV SCH (03:02)
[2018-02-24] MEDS: Hydrocortisone Sod Succ/PF 100 mg/2 ml Vial IVP SCH ×3 (05:50→20:12)
[2018-02-24] MEDS: Piperacillin/Tazobactam 3.375 GM in Sodium Chloride 0.9% 100 ML IVPB SCH ×4 (05:50→23:28)
[2018-02-24] MEDS: Pantoprazole 40 MG VIAL IVP SCH (08:36)
[2018-02-24 10:36] LABS: #Lymphocytes 0.6 thou/uL (1.20-3.40); #Monocytes 0.4 thou/uL (0.11-0.59); #Neutrophils 5.2 thou/uL (1.40-6.50); %Basophils 0.1 % (0.0-1.0); %Eosinophils 0.1 % (0.0-10.0); %Lymphocytes 9.7 % (21.0-51.0); %Monocytes 5.8 % (0.0-10.0); %Neutrophils 84.3 % (42.0-75.0); Hemoglobin 9.3 g/dL (12.0-16.0); Mean Corpuscular Hemoglobin 31.5 pg (27.0-31.0); Mean Corpuscular Volume 92.5 fl (81.0-99.0); Mean Platelet Volume 6.6 fL (7.4-10.4); Platelet Count 145 thou/uL (130-400); RBC Distribution Width 12.5 % (11.5-14.5); Red Blood Cell (RBC) Count 2.96 mill/uL (4.20-5.40); White Blood Cell (WBC) Count 6.2 thou/uL (4.8-10.8)
[2018-02-24] MEDS ORDERED: D5 1/2 NS w/20 mEq KCL 1,000 ML IV SCH (10:47)
--- NOTE | 2018-02-24 10:48 | PDOC.GSPN ---
Surgery Progress Note: Subj - Subjective Narrative: More difficulty breathing overnight after coughing. No nausea. She tolerated clears. Surgery Progress Note: Obj - Vital signs Vital signs: Vital Signs - Most Recent Temp Pulse Resp BP Pulse Ox 98.2 F 103 H 20 135/82 95 02/24/18 07:05 02/24/18 07:05 02/24/18 07:05 02/24/18 07:05 02/24/18 07:05 - Physical Exam General: no distress Respiratory: clear to auscultation Abdomen: soft, nondistended, appropriately tender Wound: healing well (dressing removed) Surgery Progress Note: Results - Labs Result Diagrams: 02/24/18 10:05 02/23/18 05:09 Lab results: Laboratory Results - last 24 hr 02/24/18 02/24/18 05:38 10:05 WBC 6.2 RBC 2.96 L Hgb 9.3 L Hct 27.4 L MCV 92.5 MCH 31.5 H MCHC 34.0 RDW 12.5 Plt Count 145 MPV 6.6 L Neutrophils % 84.3 H Lymphocytes % 9.7 L Monocytes % 5.8 Eosinophils % 0.1 Basophils % 0.1 Neutrophils # 5.2 Lymphocytes # 0.6 L Monocytes # 0.4 Eosinophils # 0.0 Basophils # 0.0 POC Glucose 137 H Surgery Progress Note: A/P - Problem (1) Small bowel obstruction with strangulation or infarction Current Visit: Yes Code(s): [id number] - Status: Acute - Plan Plan: Slow improvement. Will defer to Col[place] whether further diuresis. TKO IVF. Advanced to full liquids
[2018-02-24 10:51] LABS: Anion Gap 10 mmol/L (10-20); BUN (Urea Nitrogen) 20 mg/dL (9.8-20.1); Calc. Creatinine Clearance 56 mL/min (70-130); Calcium 8.5 mg/dL (7.8-10.44); Carbon Dioxide 27 mmol/L (23-31); Chloride 106 mmol/L (98-107); Estimated GFR-MDRD 80; Glucose 166 mg/dL (80-115); Sodium 140 mmol/L (136-145)
[2018-02-24 11:02] LABS: Potassium 2.8 mmol/L (3.5-5.1)
--- NOTE | 2018-02-24 11:49 | PRG ---
DATE OF SERVICE: 02/24/2018 SUBJECTIVE: This morning, she says she is better. Last night, she has some difficulty breathing. OBJECTIVE: VITAL SIGNS: She is on 40% ventimask. Her sats are 95%, pulse 105, temperature 99, respiratory rate 18. CHEST: Decreased breath sounds. No wheezing. CARDIAC: Normal S1 and S2. No gallops. ABDOMEN: Soft. No masses. IMPRESSION: 1. Status post laparoscopic peritonitis. 2. Respiratory failure, chronic obstructive pulmonary disease. 3. Left lung pleural effusion. 4. Relative adrenal insufficiency. PLAN: I am going to start tapering the steroids. Continue aggressive PT, neb treatments, nutrition as per Surgery. We will follow.
[2018-02-24] MEDS ORDERED: Potassium Chloride 40 MEQ in Sodium Chloride 0.9% 250 ML 250 ML IVPB SCH ×2 (12:30→17:45)
--- NOTE | 2018-02-24 16:28 | PQF ---
CLINICAL DOCUMENTATION IMPROVEMENT CLARIFICATION FORM: ICD-10 Updated PLEASE DO AN ADDENDUM TO THE PROGRESS NOTE WITH ANY DOCUMENTATION UPDATES OR ADDITIONS AND CARRY THROUGH TO DC SUMMARY. THANK YOU. Date: 02/24/18; 02/26/18 ATTN: Dr. Mendoza Please exercise your independent, professional judgment in responding to the clarification form. Clinical indicators are provided on the bottom of this form for your review Please check appropriate box(s): [ ] Protein Calorie Malnutrition: [ ] Mild [ ] Moderate [ X ] Other Malnutrition (please specify) ____chronic disease [ ] Underweight without malnutrition [X ] Cachexia [ ] Other diagnosis [ ] Unable to determine In addition, please specify: Present on Admission (POA): [ ] Yes [ ] No [ ] Unable to determine CLINICAL INDICATORS - SIGNS / SYMPTOMS / LABS DAIRY EQUIPMENT MECHANIC ASSESSMENT: 02/20/18 NUTRITION DX: MALNUTRITION R/T UNKNOWN ETIOLOGY EVIDENCED BY: CACHECTIC APPEARANCE, MUSCLE / FAT WASTING TO CLAVICLES BMI = 17.6 RISKS: H&P:HX OF COLON CANCER, OPERATED ON COLON TWICE. HAD AN ANASTOMOTIC RECURRENCE. HAS METASTATIC TO LUNG & LIVER. S/P EXPLORATORY LAPAROTOMY, SM BOWEL RESECTION. TREATMENT: DAIRY EQUIPMENT MECHANIC ASSESSMENT02/20: TRIGGERED FOR FOOD PUMP, NAUSEA, & BMI <19. INTERVENTION: PROVIDE ENSURE ENLIVE TID FOR SUPPLEMENT WHEN DIET ADVANCED. 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 Moderate Malnutrition (in chronic illness) Energy Intake: <75% of estimated energy requirement for >1 month Weight Loss: 5%/1 month; 7.5%/3 months; 10%/6 months; 20%/1 year Other: mild body fat loss; mild muscle mass loss; mild fluid accumulation Severe Malnutrition (in chronic illness) Energy Intake: <75% of estimated energy requirement for >1 month Weight Loss: >5%/1 month; >7.5%/3 months; >10%/6 months; >20%/1 year Other: severe body fat loss; severe muscle mass loss; severe fluid accumulation; 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 All Rights Reserved Kaylen Kinney RN, BSN [email or web address] Office: [phone] [facility] CENTERKinga
[2018-02-24 17:24] LABS: Potassium 2.7 mmol/L (3.5-5.1)
[2018-02-24] MEDS: Fentanyl 100 MCG/2 ML VIAL SLOW IVP PRN ×2 (18:06→23:34)
[2018-02-24] MEDS: Enoxaparin Sodium 40 MG/0.4 ML SYRINGE SC SCH (20:13)
[2018-02-25] MEDS: Piperacillin/Tazobactam 3.375 GM in Sodium Chloride 0.9% 100 ML IVPB SCH ×3 (05:38→18:10)
[2018-02-25 08:09] LABS: #Lymphocytes 1.1 thou/uL (1.20-3.40); #Monocytes 0.5 thou/uL (0.11-0.59); #Neutrophils 3.4 thou/uL (1.40-6.50); %Basophils 0.7 % (0.0-1.0); %Eosinophils 0.1 % (0.0-10.0); %Monocytes 10.5 % (0.0-10.0); %Neutrophils 66.7 % (42.0-75.0); Hemoglobin 8.8 g/dL (12.0-16.0); Mean Corpuscular HGB CONC 32.8 g/dL (32.0-36.0); Mean Corpuscular Hemoglobin 30.6 pg (27.0-31.0); Mean Corpuscular Volume 93.5 fl (81.0-99.0); Mean Platelet Volume 6.9 fL (7.4-10.4); Platelet Count 133 thou/uL (130-400); RBC Distribution Width 12.6 % (11.5-14.5); Red Blood Cell (RBC) Count 2.87 mill/uL (4.20-5.40); White Blood Cell (WBC) Count 5.1 thou/uL (4.8-10.8)
[2018-02-25 08:25] LABS: Anion Gap 12 mmol/L (10-20); BUN (Urea Nitrogen) 21 mg/dL (9.8-20.1); Calc. Creatinine Clearance 58 mL/min (70-130); Calcium 8.7 mg/dL (7.8-10.44); Carbon Dioxide 26 mmol/L (23-31); Chloride 109 mmol/L (98-107); Estimated GFR-MDRD 88; Glucose 118 mg/dL (80-115); Potassium 3.3 mmol/L (3.5-5.1); Sodium 144 mmol/L (136-145)
[2018-02-25] MEDS: Pantoprazole 40 MG VIAL IVP SCH (09:34)
[2018-02-25] MEDS: Hydrocortisone Sod Succ/PF 100 mg/2 ml Vial IVP SCH (09:35)
[2018-02-25] MEDS ORDERED: HYDROcodone/Acetaminophen 10/325 mg Tablet PO PRN (09:47)
--- NOTE | 2018-02-25 09:48 | PDOC.GSPN ---
Surgery Progress Note: Subj - Subjective Patient reports: no new complaints, tolerating liquids well Surgery Progress Note: Obj - Vital signs Vital signs: Vital Signs - Most Recent Temp Pulse Resp BP Pulse Ox 98.1 F 108 H 15 121/75 93 L 02/25/18 07:05 02/25/18 07:05 02/25/18 07:05 02/25/18 07:05 02/25/18 07:05 - Physical Exam General: no distress Respiratory: clear to auscultation Abdomen: soft, non tender, nondistended, positive bowel sounds Surgery Progress Note: Results - Labs Result Diagrams: 02/25/18 06:05 02/25/18 06:30 Lab results: Laboratory Results - last 24 hr 02/24/18 02/25/18 02/25/18 23:52 05:51 06:05 WBC 5.1 RBC 2.87 L Hgb 8.8 L Hct 26.8 L MCV 93.5 MCH 30.6 MCHC 32.8 RDW 12.6 Plt Count 133 MPV 6.9 L Neutrophils % 66.7 Lymphocytes % 22.0 Monocytes % 10.5 H Eosinophils % 0.1 Basophils % 0.7 Neutrophils # 3.4 Lymphocytes # 1.1 L Monocytes # 0.5 Eosinophils # 0.0 Basophils # 0.0 Sodium Potassium Chloride Carbon Dioxide Anion Gap BUN Creatinine Estimated GFR (MDRD) Glucose POC Glucose 137 H 131 H Calcium 02/25/18 06:30 WBC RBC Hgb Hct MCV MCH MCHC RDW Plt Count MPV Neutrophils % Lymphocytes % Monocytes % Eosinophils % Basophils % Neutrophils # Lymphocytes # Monocytes # Eosinophils # Basophils # Sodium 144 Potassium 3.3 L Chloride 109 H Carbon Dioxide 26 Anion Gap 12 BUN 21 H Creatinine 0.67 Estimated GFR (MDRD) 88 Glucose 118 H POC Glucose Calcium 8.7 Surgery Progress Note: A/P - Problem (1) Small bowel obstruction with strangulation or infarction Current Visit: Yes Code(s): [id number] - Status: Acute Assessment and Plan: advance to gi soft diet. She is due for perc drain change. Will discuss with Dr. Scruggs.
--- NOTE | 2018-02-25 12:55 | PRG ---
DATE OF SERVICE: 02/25/2018 SUBJECTIVE: Ms. Pinon is doing much better. In fact, she is in liquid diet today. OBJECTIVE: VITAL SIGNS: Sats are 96% on 2 liters, temperature 98, blood pressure is 120/75. CHEST: Chest reveals decreased breath sounds, no wheezing. CARDIAC: Normal S1, S2, no gallops. ABDOMEN: Soft. EXTREMITIES: No edema. LABORATORY DATA: White count 5000, hemoglobin and hematocrit is 8 and 26, platelet count is normal. Electrolytes are normal. IMPRESSION: 1. Status post laparoscopic peritonitis. 2. Severe deconditioning. 3. Tobacco abuse. 4. Left-sided infiltrate. PLAN: The patient appears to be much improved. Continue aggressive PT and nutrition. We will follow. Please note, we are going to taper and discontinue her steroids.
[2018-02-25] MEDS: Enoxaparin Sodium 40 MG/0.4 ML SYRINGE SC SCH (18:34)
[2018-02-25] MEDS: Fentanyl 100 MCG/2 ML VIAL SLOW IVP PRN (19:48)
[2018-02-26] MEDS: Piperacillin/Tazobactam 3.375 GM in Sodium Chloride 0.9% 100 ML IVPB SCH ×3 (00:33→11:45)
--- NOTE | 2018-02-26 06:56 | EKG ---
Test Reason : Blood Pressure : / mmHG Vent. Rate : 111 BPM Atrial Rate : 111 BPM P-R Int : 158 ms QRS Dur : 090 ms QT Int : 354 ms P-R-T Axes : 077 081 107 degrees QTc Int : 481 ms Sinus tachycardia with Premature atrial complexes T wave abnormality, consider anterior ischemia Abnormal ECG When compared with ECG of 20-FEB-2018 16:45, (Unconfirmed) Premature atrial complexes are now Present T wave amplitude has decreased in Inferior leads Confirmed by AKIL LEVI ([id number]) on 02/26/2018 6:56:13 AM Referred By: SINCERE Confirmed By:AKIL LEVI
[2018-02-26] MEDS: Pantoprazole 40 MG VIAL IVP SCH (08:39)
[2018-02-26] MEDS: HYDROcodone/Acetaminophen 10/325 mg Tablet PO PRN (08:40)
--- NOTE | 2018-02-26 08:56 | PRG ---
DATE OF SERVICE: 02/26/2018 This morning she says she is better, less pain. She is still short of breath. PHYSICAL EXAMINATION: VITAL SIGNS: Sats 93 on 2 liters, pulse 108, temperature 97, blood pressure 120/73. CHEST: Chest reveals decreased breath sounds, no wheezing. CARDIAC: Normal S1, S2. ABDOMEN: Soft, no masses. IMPRESSION: 1. Status post lap peritonitis. 2. Left pleural effusion. 3. Chronic obstructive pulmonary disease. 4. Tobacco use. 6. Metastatic cancer. PLAN: Neb treatments, PT. Diet.
[2018-02-26] MEDS ORDERED: PHYTONADIONE IVPB SCH (09:00)
[2018-02-26] MEDS ORDERED: Hydrocortisone Sod Succ/PF 100 mg/2 ml Vial IVP SCH (09:00)
[2018-02-26] MEDS ORDERED: SODIUM CHLORIDE IVPB SCH (09:00)
[2018-02-26] MEDS ORDERED: ADMIXTURE FEE IVPB SCH (09:00)
--- NOTE | 2018-02-26 09:23 | SPC ---
RIGHT NEPHROSTOMY TUBE EXCHANGE: History: Patient with right sided nephrostomy. Radiation dosimetry: 2.3 minutes fluoroscopy, DAP of 8.8 mGy*cm^2. Technique: Informed consent was obtained. The insertion site of the nephrostomy tube was prepped and draped in t he usual sterile manner. A 1% Lidocaine solution was used to anesthetize the overlying soft tissues. A right sided nephrostomy tube was injected with sterile iodinated contrast to confirm position. The nephrostomy tube was then cut using a scalpel. An 035 angle tipped Glidewire was placed into the [facility] collecting system. The old nephrostomy tube was removed. A new 8 Albanian nephrostomy tube was placed over the wire, positioned the distal tip in the right pelvic region. IMPRESSION: Successful right sided nephrostomy tube exchange. POS: [facility]
[2018-02-26 10:03] VITALS: BMI 17.6
--- NOTE | 2018-02-26 12:11 | PDOC.GSPN ---
Surgery Progress Note: Subj - Subjective Patient reports: no new complaints, tolerating a regular diet Surgery Progress Note: Obj - Vital signs Vital signs: Vital Signs - Most Recent Temp Pulse Resp BP Pulse Ox 98.1 F 92 15 119/75 96 02/26/18 11:00 02/26/18 11:00 02/26/18 11:00 02/26/18 11:00 02/26/18 11:00 - Physical Exam General: no distress Cardiovascular: regular rate and rhythm Respiratory: clear to auscultation Abdomen: soft, non tender, positive bowel sounds Wound: dressing clean,dry,intact Surgery Progress Note: Results - Labs Result Diagrams: 02/25/18 06:05 02/25/18 06:30 Surgery Progress Note: A/P - Problem (1) Small bowel obstruction with strangulation or infarction Current Visit: Yes Code(s): [id number] - Status: Acute Assessment and Plan: Doing well. Had nephrostomy tube changed out. Tolerating gi soft. will increase her activity. Possible dc over the weekend
[2018-02-26] MEDS: Enoxaparin Sodium 40 MG/0.4 ML SYRINGE SC SCH (20:31)
[2018-02-27] MEDS: Pantoprazole 40 MG VIAL IVP SCH (08:48)
--- NOTE | 2018-02-27 11:58 | PDOC.GSPN ---
Surgery Progress Note: Subj - Subjective Patient reports: bowel movement, feels better (Nurses tried weaning oxygen off the remaining her sats were 88-89. Patient is working on her incentive spirometry does not feel short of breath. Her dressing has had to be changed frequently due to serous drainage from the incision. 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 It does not seem to be coming from any one particular place but rather along the entire incision. She is nontender nondistended has normal bowel sounds Assessment/plan: Status post small bowel resections with resumption of bowel function. She had a bowel movement last night and is passing flatus and tolerating her diet. If we can get her off of the oxygen I will plan to discharge her today. She was instructed to keep a close eye on her wound. If the drainage seems to be coming from one particular spot we may need to open the incision and packing it right now it just seems to be serous drainage along the entire length which may be related to her cancer and malnutrition. Skin protectant has been applied to the skin alongside the incision the patient and her nurse were instructed to change the dressings when they get wet to avoid skin damage Surgery Progress Note: Obj - Vital signs Vital signs: Vital Signs - Most Recent Temp Pulse Resp BP Pulse Ox 98.4 F 116 H 14 120/69 92 L 02/27/18 11:52 02/27/18 11:52 02/27/18 11:52 02/27/18 11:52 02/27/18 11:52 Surgery Progress Note: Results - Labs Result Diagrams: 02/25/18 06:05 02/25/18 06:30
[2018-02-27] MEDS: HYDROcodone/Acetaminophen 10/325 mg Tablet PO PRN (14:25)
[2018-02-27 16:01] VITALS: BP 135/77; TEMP 98.2
--- NOTE | 2018-03-01 10:04 | DIS ---
ADMIT DIAGNOSES: 1. Small-bowel obstruction with closed loop obstruction. 2. Ischemic intestine secondary to #1. 3. Metastatic colon cancer. DISCHARGE DIAGNOSES: 1. Small-bowel obstruction with closed loop obstruction. 2. Ischemic intestine secondary to #1. 3. Metastatic colon cancer. PROCEDURES: 1. Exploratory laparotomy and lysis of adhesion by Dr. Mendoza. 2. Reexploration and small bowel resection and anastomosis by Dr. Mendoza. CONDITION AT DISCHARGE: Improved. STAFF: Dr. Destin Mendoza HOSPITAL COURSE: The patient was admitted with severe abdominal pain and CT scan showed likely close d loop obstruction. She was taken to the operating room urgently where she was found to have closed loop obstruction and ischemic changes to her intestine. She had lysis of single adhesion, untwist of this mesentery and the small intestine appeared to become viable again. She was then closed and sen t to the floor postop. On postop day #2, her pain was still pretty consistently bad and this was ass ociated with tachycardia. She was taken back to the operating room for re-exploration where her smal l bowel was 90+ percent viable; however, she had a few patchy areas of necrosis without perforation. She underwent a resection of this whole area and anastomosis. After that her postop course was unev entful and she was discharged home on the above-mentioned date to follow up with me in the office for staple removal in 2 weeks.
--- NOTE | 2018-03-02 10:09 | SPC ---
RIGHT NEPHROSTOMY TUBE EXCHANGE: History: Patient with right sided nephrostomy. Radiation dosimetry: 2.3 minutes fluoroscopy, DAP of 8.8 mGy*cm^2. Technique: Informed consent was obtained. The insertion site of the nephrostomy tube was prepped and draped in t he usual sterile manner. A 1% Lidocaine solution was used to anesthetize the overlying soft tissues. A right sided nephrostomy tube was injected with sterile iodinated contrast to confirm position. The nephrostomy tube was then cut using a scalpel. An 035 angle tipped Glidewire was placed into the [facility] collecting system. The old nephrostomy tube was removed. A new 8 Yoruba nephrostomy tube was placed over the wire, positioned the distal tip in the right pelvic region. IMPRESSION: Successful right sided nephrostomy tube exchange.
--- NOTE | 2018-03-15 11:38 | EKG ---
Test Reason : STAT Blood Pressure : / mmHG Vent. Rate : 114 BPM Atrial Rate : 114 BPM P-R Int : 132 ms QRS Dur : 074 ms QT Int : 326 ms P-R-T Axes : 072 066 077 degrees QTc Int : 449 ms Sinus tachycardia Otherwise normal ECG Confirmed by SARAH LARA M.D. ([id number]) on 03/15/2018 11:38:21 AM Referred By: GARLAND Confirmed By:SARAH LARA M.D.
== END 2018-02-27 17:05 | disposition home or self-care (01) | DRG 329 ==
LOC: ERS 14:56 → CCU 18:54 → SDC 19:30 → SURG B 21:48 → CCU 02-21 14:47 → SURG A 02-23 14:28
PROVIDERS: ADMIT Surgery; ATTEND Surgery
PROC: 0DN80ZZ Release Small Intestine, Open Approach (ICD-10-PCS; principal; 2018-02-19)
PROC: 0DT80ZZ Resection of Small Intestine, Open Approach (ICD-10-PCS; 2018-02-21)
PROC: 0T25X0Z Change Drainage Device in Kidney, External Approach (ICD-10-PCS; 2018-02-26)
DX: K56.52 Intestinal adhesions [bands] with complete obstruction (principal); K55.021 Focal (segmental) acute infarction of small intestine; K55.011 Focal (segmental) acute (reversible) ischemia of small intestine; J96.90 Respiratory failure, unspecified, unspecified whether with hypoxia or hypercapnia; K65.9 Peritonitis, unspecified; J90 Pleural effusion, not elsewhere classified; E46 Unspecified protein-calorie malnutrition; C78.00 Secondary malignant neoplasm of unspecified lung; C78.7 Secondary malignant neoplasm of liver and intrahepatic bile duct; E27.40 Unspecified adrenocortical insufficiency; Z68.1 Body mass index [BMI] 19.9 or less, adult; Z85.038 Personal history of other malignant neoplasm of large intestine; N13.5 Crossing vessel and stricture of ureter without hydronephrosis; Z90.49 Acquired absence of other specified parts of digestive tract; F17.210 Nicotine dependence, cigarettes, uncomplicated; J44.9 Chronic obstructive pulmonary disease, unspecified; Z46.6 Encounter for fitting and adjustment of urinary device
CPT/HCPCS: 36415; 36416; 50431; 50435; 71045; 74177; 75984; 80048; 80053; 81003; 81015; 82150; 82533; 82805; 83605; 83690; 85025; 88307; 90715; 93005; 93010; 94002; 94003; 94150; 94640; 96361; 96374; A4216; C1729; C1769; C9113; G8978-GP-CK; G8979-GP-CI; J0131; J0694; J1100; J1644; J1650; J1720; J1940; J2001; J2060; J2270; J2405; J2543; J2704; J3010; J3430; J3480; J7050; J7620; P9047; Q0162

== ENCOUNTER 2018-04-15 07:35 | Day surgery (SDC) | payer MEDICARE ==
[~2018-04-15 07:35] MED LIST changes: -ISOVUE-370 76%-LOCM 1 ML ONE; +Prevnar 13-Val Conj/PF 0.5 ML SYRINGE IM ONE
[2018-04-15 08:24] VITALS: BP 109/66; TEMP 98.8; BMI 16.0
--- NOTE | 2018-04-15 11:51 | SPC ---
INDICATIONS: The patient has a chronic indwelling percutaneous right nephrostomy catheter. She presents for routi ne replacement of this catheter, which is performed every two months. PROCEDURE: Right percutaneous nephrostomy tube exchange. FINDINGS: A new 8 Romansh pigtail nephrostomy catheter was placed over an 0.035 Stiff Glidewire, under fluorosco pic guidance. Fluoroscopy confirmed good position and function of the new tube, with drainage of roslyn ar urine. PROCEDURE NOTE: The patient was placed prone on the special procedures table. An indwelling right percutaneous nephr ostomy catheter is in place. The tube and skin were prepped and draped in a sterile manner. Local a nesthesia was not administered, as requested by the patient. Contrast was injected through the indwelling nephrostomy catheter, which opacifies the right renal pe lvis and the right ureter. The right ureter was dilated and tortuous. The pigtail was unlocked. An 0.035 Stiff Glidewire was introduced through the catheter. The pigtail was straightened, and the Gl idewire was directed into the ureter. The catheter was removed over the wire. A new 8 Romansh pigtai l catheter was then advanced over the wire. The pigtail was formed within the renal pelvis, after th e wire was removed. Contrast was injected, which confirmed adequate position and function of the new tube. The renal pelvis was decompressed with aspiration. The tube was secured with a sterile dress ing. There were no problems or complications. POS: [facility]
== END 2018-04-15 09:30 | disposition home or self-care (01) ==
LOC: SPEC 07:35
PROVIDERS: ATTEND Urology
PROC: 0T25X0Z Change Drainage Device in Kidney, External Approach (ICD-10-PCS; principal; 2018-04-15)
DX: Z43.6 Encounter for attention to other artificial openings of urinary tract (principal); N13.30 Unspecified hydronephrosis
CPT/HCPCS: 50431; 50435; 75984; C1729; C1769

== ENCOUNTER 2018-05-31 10:29 | Outpatient (CLI) | payer MEDICARE ==
--- NOTE | 2018-05-31 16:20 | PET ---
RADIONUCLIDE PET SCAN WITH CT ATTENUATION CORRECTION: Date: 05/31/18 HISTORY: Colon cancer with metastatic disease. Restaging. COMPARISON: 10/17/17. FINDINGS: Physiologic uptake of radiotracer is again demonstrated throughout the enteric system and along each urinary tract. Right percutaneous nephrostomy catheter is in place. Parenchymal scarring and calcific ation are present in the left lower lobe and region of hypermetabolic mass on previous exams. No resi dual hypermetabolic activity is apparent at this location. Mild paraspinal muscular uptake. Centered within the anterior abdominal wall just above the right pubic symphysis, an area of thickeni ng and subtle hyperdensity with the appearance of dystrophic calcification shows increased uptake wit h a maximum SUV of 3.8. No other new areas of hypermetabolic activity are apparent. Implanted port is in place. There is calc ification in the arterial structures. Calcified mediastinal granulomata. Gallbladder is surgically ab sent. Degenerative changes lumbar spine. IMPRESSION: 1. Interval resolution of the abnormal uptake of the left lower lobe mass. No significant residual a ctivity. 2. New area of hypermetabolic activity associated within an area of nodular thickening of the lower anterior abdominal wall, just to the right of midline and above the right side of the pubic symphysis . This would be an unusual location for a new metastatic focus. Considerations would include infectio n, inflammation related to recent or prior surgery, or, in a younger female, endometriosis. This area could be followed on the next PET scan if there is not clear clinical explanation for the abnormalit y. POS: [facility]
== END 2018-05-31 10:30 | disposition home or self-care (01) ==
LOC: PET 10:29
PROVIDERS: ATTEND Internal Medicine Hematology & Oncology
DX: C18.9 Malignant neoplasm of colon, unspecified (principal); R91.8 Other nonspecific abnormal finding of lung field; R93.5 Abnormal findings on diagnostic imaging of other abdominal regions, including retroperitoneum
CPT/HCPCS: 78815; A9552

== ENCOUNTER → 2018-06-03 | Day surgery (SDC) | payer MEDICARE ==
[~2018-06-03] MED LIST changes: +Iopamidol 300 61% 50 ML VIAL FS ONE
[2018-06-03 07:23] VITALS: TEMP 98.7; BMI 17.9
--- NOTE | 2018-06-03 09:00 | SPC ---
FLUOROSCOPIC GUIDED RIGHT NEPHROSTOMY TUBE EXCHANGE: INDICATION: Chronic indwelling right nephrostomy tube requiring replacement. TECHNIQUE: Informed consent was obtained. The patient was placed prone on the special procedures table. The ri ght-sided nephrostomy tube was sterilely prepped and draped. No local anesthesia nor conscious sedat ion was administered at the request of the patient. Contrast was injected through the right-sided indwelling nephrostomy catheter opacifying the right re nal collecting system. The right renal collecting system was decompressed when compared to the most recent nephrostomy tube exchange dated 04/15/18. An 0.035 stiff Amplatz wire was guided down through the catheter with placement of the tip of the wire into the proximal right ureter. The catheter was then removed. A new 8 Bulgarian pigtail catheter was then advanced over the wire and the pigtail was fo rmed within the right renal pelvis. Contrast was injected confirming adequate position and functioni ng of the tube within the right renal pelvis. There was appropriate aspiration of urine and residual contrast from the right renal pelvis upon completion of the examination. This tube was then secured and sterilely draped. The patient experienced no complications related to the procedure. IMPRESSION: Successful right nephrostomy tube exchange. POS: [facility]
== END ==
LOC: SPEC 06:54
PROVIDERS: ATTEND Urology
PROC: 0T25X0Z Change Drainage Device in Kidney, External Approach (ICD-10-PCS; principal; 2018-06-03)
DX: N13.30 Unspecified hydronephrosis (principal)
CPT/HCPCS: 50435; 75984; C1729

== ENCOUNTER 2018-07-07 11:07 | Day surgery (SDC) | payer MEDICARE ==
[2018-07-07 12:21] VITALS: BP 107/71; TEMP 98.6
[2018-07-07 12:34] VITALS: BMI 18.8
== END 2018-07-07 12:10 | disposition home or self-care (01) ==
LOC: SPEC 11:07
PROVIDERS: ATTEND Urology
PROC: 0T25X0Z Change Drainage Device in Kidney, External Approach (ICD-10-PCS; principal; 2018-07-07)
DX: Z46.6 Encounter for fitting and adjustment of urinary device (principal); N13.30 Unspecified hydronephrosis; C18.9 Malignant neoplasm of colon, unspecified; Z87.891 Personal history of nicotine dependence
CPT/HCPCS: 50431; 50435; 75984; C1729

== ENCOUNTER 2018-08-19 06:56 | Day surgery (SDC) | payer MEDICARE ==
[2018-08-18 13:29] VITALS: BMI 20.7
[2018-08-19 07:34] VITALS: BP 112/83; TEMP 98.6
--- NOTE | 2018-08-19 09:07 | SPC ---
RIGHT NEPHROSTOMY TUBE REPLACEMENT AND NEPHROSTOGRAM: DATE: 08/19/2018. HISTORY: Patient with metastatic colon cancer and right ureteral obstruction. Patient with chronic indwelling right nephrostomy tube. The patient is presenting today for replacement of the nephrostomy tube. FLUOROSCOPY: Total fluoroscopy time 0.5 minutes, total dose of 984 mGy*^cm2. TECHNIQUE: After informed consent was obtained, the patient was placed on the angiography table in the prone pos ition. Levaquin was administered intravenously prior to this procedure as requested. The right neph rostomy tube and surrounding area were meticulously prepped and draped in the usual sterile fashion. The catheter was punctured with a needle and sterile contrast-filled syringe and nephrostogram was p erformed. The catheter was then cut and exchanged over a 0.035 inch [place] guidewire for a new 8 Fr ench nephrostomy tube. The distal portion of the nephrostomy tube was coiled in the dilated renal pe lvis. The nephrostomy tube was injected confirming placement within the renal collecting system. Co ntrast was aspirated and the tube was flushed and placed to gravity drainage. A dry sterile dressing was placed. The patient tolerated the procedure well and without immediate co mplication. IMPRESSION: Technically successful right nephrostomy tube replacement. POS: [facility]
[2018-08-19] MEDS ORDERED: Iopamidol 300 61% 50 ML VIAL FS ONE (12:40)
== END 2018-08-19 08:15 | disposition home or self-care (01) ==
LOC: SPEC 06:56
PROVIDERS: ATTEND Urology
PROC: 0T25X0Z Change Drainage Device in Kidney, External Approach (ICD-10-PCS; principal; 2018-08-19)
DX: Z43.6 Encounter for attention to other artificial openings of urinary tract (principal); N13.5 Crossing vessel and stricture of ureter without hydronephrosis; C18.9 Malignant neoplasm of colon, unspecified; C79.9 Secondary malignant neoplasm of unspecified site; Z79.899 Other long term (current) drug therapy
CPT/HCPCS: 50431; 50435; 75984; C1729

== ENCOUNTER 2018-09-30 07:12 | Day surgery (SDC) | payer MEDICARE ==
[2018-09-29 12:10] VITALS: BMI 18.8
[2018-09-30 08:57] VITALS: BP 115/73; TEMP 98
--- NOTE | 2018-09-30 13:58 | SPC ---
FLUOROSCOPICALLY GUIDED RIGHT NEPHROSTOMY TUBE EXCHANGE: NEPHROSTOGRAM THROUGH EXISTING CATHETER: 09/30/2018 HISTORY: A 68-year-old female with chronic right ureteral obstruction, requiring routine maintenance nephrosto my tube exchange. TECHNIQUE: Signed informed consent obtained. The patient was placed prone on the fluoroscopy table in the Speci al Procedures Suite. The existing 8 Portuguese nephrostomy catheter was injected, confirming position wi thin the right renal collecting system. The existing catheter and surrounding right flank skin were prepared and draped in the usual sterile fashion. Sterile scissors were used to cut the catheter, an d a 0.035 inch stiff, angled Glidewire was advanced, under fluoroscopy, through the existing catheter , and coiled in the right renal collecting system. The existing nephrostomy catheter was exchanged o ekaterina this guidewire for a new 8 Portuguese nephrostomy catheter. The guidewire and stiffener were removed . A repeat contrast injection into the new nephrostomy catheter confirmed good position within the c ollecting system. The pigtail loop was locked in place. The contrast material was aspirated, and th en the catheter was flushed with normal saline. The catheter was attached to an external drainage ba g. The patient specifically stated that she did not wish to have the catheter sutured. She has not had recent catheters sutured. Precautions regarding the possibility of the catheter falling out of p lace were discussed with the patient. She tolerated the procedure well. No complications. FINDINGS: Image obtained after injection into the old nephrostomy tube demonstrates the catheter in good positi on. Injected contrast material is seen in the right proximal ureter. Contrast material is then aspi rated out of the collecting system. The next series of images demonstrate the new nephrostomy tube c atheter, and the newly injected contrast material in the renal collecting system and proximal ureter. A final image was obtained after aspiration of the contrast material, demonstrates the nephrostomy tube in good position. IMPRESSION: Successful 8 Portuguese right nephrostomy tube exchange. POS: WILLIAM
[2018-09-30] MEDS ORDERED: Iopamidol 300 61% 100 ML VIAL FS ONE (14:37)
== END 2018-09-30 08:43 | disposition home or self-care (01) ==
LOC: SPEC 07:12
PROVIDERS: ATTEND Urology
PROC: 0T25X0Z Change Drainage Device in Kidney, External Approach (ICD-10-PCS; principal; 2018-09-30)
DX: Z43.6 Encounter for attention to other artificial openings of urinary tract (principal); N13.5 Crossing vessel and stricture of ureter without hydronephrosis; Z79.2 Long term (current) use of antibiotics; Z79.899 Other long term (current) drug therapy
CPT/HCPCS: 50431; 50435; 75984; C1729; C1769

== ENCOUNTER 2018-11-11 07:11 | Day surgery (SDC) | payer MEDICARE ==
[2018-11-10 13:17] VITALS: BMI 18.8
[~2018-11-11 07:11] MED LIST changes: -Iopamidol 300 61% 50 ML VIAL FS ONE
[2018-11-11 09:06] VITALS: BP 126/77; TEMP 99
--- NOTE | 2018-11-11 09:14 | SPC ---
FLUOROSCOPIC GUIDED RIGHT PERCUTANEOUS NEPHROSTOMY CATHETER EXCHANGE: History: Ureteral obstruction. FINDINGS: After explaining the procedure and answering all questions, patient was placed on the fluoroscopy tab le in prone position. The right flank and percutaneous nephrostomy catheter were prepped and draped i n the usual sterile fashion. Sterile technique was used to ligate the external portion of the nephros douglas catheter. A small amount of contrast was injected to opacify the nondilated renal collecting sys tem and proximal ureter. .035 Amplax wire was placed to hold position. Old catheter was removed and a new 8 English locking loop catheter was placed in the renal pelvis and secured with the retention str ing. Catheter was left draining to gravity. Patient tolerated the procedure well and was dismissed in good condition. Fluoro time: 0.8 minutes IMPRESSION: Technically successful fluoroscopically guided exchange right percutaneous nephrostomy catheter. POS: LINETTE
== END 2018-11-11 08:40 | disposition home or self-care (01) ==
LOC: SPEC 07:11
PROVIDERS: ATTEND Urology
PROC: 0T25X0Z Change Drainage Device in Kidney, External Approach (ICD-10-PCS; principal; 2018-11-11)
DX: N13.5 Crossing vessel and stricture of ureter without hydronephrosis (principal)
CPT/HCPCS: 50431; 50435; 75984; C1729

== ENCOUNTER 2018-11-25 09:16 | Outpatient (CLI) | payer MEDICARE ==
--- NOTE | 2018-11-25 15:03 | PET ---
PET CT FROM SKULL TO MID THIGH: INDICATION: History of colon cancer with metastatic disease. TECHNIQUE: Multiple PET CT images were obtained from the skull base through mid thighs following introduction of 10.2 mCi F[address] images were obtained for attenuation correction purposes only. Exam is compared to prior dated 10/17/17 and the most recent PET evaluation dated 05/31/18. FINDINGS: The biodistribution for the examination appears acceptable. Head/Neck: No hypermetabolic lymphadenopathy or mass is identified. Chest: No hypermetabolic pulmonary nodule or pleural effusion is evident. There is a 1.2 cm nodule with surr ounding scarring in the left lower lobe that is unchanged without associated hypermetabolic activity. There are scattered calcified granuloma. There is scattered emphysema. Tiny punctate subcentimeter p ulmonary nodules are stable from the prior exam. No hypermetabolic lymphadenopathy is evident. There are numerous calcified lymph nodes within the mediastinum and hilar regions. Abdomen/Pelvis: The soft tissue mass involving the lower right rectus abdominus musculature has enlarged and now kym ures approximately 2.2 cm. Lesion measures 4.6 cm greatest craniocaudad dimension which also appears slightly more prominent. Peak SUV activity associated with the lesion is 5.15, where it previously me asured 3.8. No additional hypermetabolic mass or lymphadenopathy is evident. There is some background activity seen involving the enteric system and renal collecting systems. Right-sided percutaneous ne phrostomy tube is again demonstrated. Skin/Osseous Structures: No hypermetabolic skin or osseous lesion identified. IMPRESSION: 1. Enlarging soft tissue mass with increasing hypermetabolic activity involving the lower right abdo minus rectus is suspicious for metastatic lesion. This could undergo ultrasound guided core biopsy if clinically indicated. Alternatively, this could be potentially palpated on the clinical examination and could undergo surgical biopsy in the clinic. Recommend correlation. 2. No hypermetabolic activity is seen involving the pulmonary nodules within both lungs, likely rela salvatore to treated metastatic disease. POS: LINETTE
== END 2018-11-25 09:17 | disposition home or self-care (01) ==
LOC: PET 09:16
PROVIDERS: ATTEND Internal Medicine Hematology & Oncology
DX: C18.9 Malignant neoplasm of colon, unspecified (principal); M79.9 Soft tissue disorder, unspecified; R91.8 Other nonspecific abnormal finding of lung field
CPT/HCPCS: 78815; A9552

== ENCOUNTER 2018-12-23 07:19 | Day surgery (SDC) | payer MEDICARE ==
[2018-12-23 07:35] LABS: #Eosinphils 0.2 thou/uL (0.0-0.7); #Lymphocytes 2.5 thou/uL (1.20-3.40); #Monocytes 0.3 thou/uL (0.11-0.59); #Neutrophils 2.8 thou/uL (1.40-6.50); %Basophils 0.8 % (0.0-1.0); %Eosinophils 2.6 % (0.0-10.0); %Lymphocytes 42.7 % (21.0-51.0); %Monocytes 5.3 % (0.0-10.0); %Neutrophils 48.7 % (42.0-75.0); Hemoglobin 13.5 g/dL (12.0-16.0); Mean Corpuscular HGB CONC 32.1 g/dL (32.0-36.0); Mean Corpuscular Volume 93.3 fL (78.0-98.0); Mean Platelet Volume 6.7 fL (7.4-10.4); Platelet Count 194 thou/uL (130-400); White Blood Cell (WBC) Count 5.8 thou/uL (4.8-10.8)
[2018-12-23 07:44] LABS: PTT 25.5 SEC (22.9-36.1); Prothrombin Time 12.8 SEC (12.0-14.7)
[2018-12-23 08:21] VITALS: BP 117/74; TEMP 98.2
--- NOTE | 2018-12-23 09:55 | SPC ---
FLUOROSCOPIC GUIDED RIGHT PERCUTANEOUS NEPHROSTOMY CATHETER EXCHANGE: History: Ureteral obstruction. Long-term indwelling right nephrostomy catheter. FINDINGS: After explaining the procedure and answering all questions, the external portion of the right percuta neous nephrostomy catheter was prepped and draped in the usual sterile fashion. Small amount of contr ast was instilled to confirm good catheter position. .035 Amplax wire was used to hold position while the old catheter was exchanged for a new 8 Scottish lo ck and loop nephrostomy catheter. Position was confirmed with a small amount of contrast. The cathete r was secured externally and left draining to gravity. Patient tolerated the procedure well and was d ismissed in good condition. Fluoro time: 0.7 minutes IMPRESSION: Technically successful fluoroscopic guided exchange right percutaneous nephrostomy. POS: LINETTE
== END 2018-12-23 09:00 | disposition home or self-care (01) ==
LOC: SPEC 07:19
PROVIDERS: ATTEND Urology
PROC: 0T25X0Z Change Drainage Device in Kidney, External Approach (ICD-10-PCS; principal; 2018-12-23)
DX: N13.1 Hydronephrosis with ureteral stricture, not elsewhere classified (principal); C18.9 Malignant neoplasm of colon, unspecified; C79.9 Secondary malignant neoplasm of unspecified site; Z79.2 Long term (current) use of antibiotics; Z79.899 Other long term (current) drug therapy
CPT/HCPCS: 50431; 50435; 75984; 82565; 85025; 85610; 85730; C1729

== ENCOUNTER 2019-02-18 12:52 | Day surgery (SDC) | payer MEDICARE ==
[2019-02-17 09:16] VITALS: BMI 19.3
--- NOTE | 2019-02-18 14:25 | SPC ---
FNephrostomy catheter exchange right Fluoroscopic guidance: Wai hardy HISTORY: 68-year-old female with chronic indwelling right nephrostomy catheter for right ureteral obstruction due to metastatic colon cancer. The catheter requires periodic exchange. TECHNIQUE: Signed informed consent obtained. Patient placed prone on the special procedures table. Skin of right flank and existing external portion of nephrostomy tube were prepared and draped in usual sterile fa shion. Procedure was performed under fluoroscopic guidance. The catheter was cut with sterile scissor s. 0.035 inch Amplatz superstiff guidewire was advanced through the internal portion of the catheter, and multiple loops were formed. The catheter was exchanged over the guidewire for a new 8 Greek per cutaneous nephrostomy catheter. The catheter was further advanced over the trocar. Trocar and guidewi re were removed. Pigtail loop was formed and locked into place. Catheter was attached to external amina inage bag. Patient tolerated the procedure well. No complications. Contrast injection and aspiration demonstrated well-functioning, well-positioned new catheter. Total fluoroscopy time: 1.6 minutes IMPRESSION: Successful exchange of right 8 Greek percutaneous nephrostomy catheter.
== END 2019-02-18 13:55 | disposition home or self-care (01) ==
LOC: SPEC 12:52
PROVIDERS: ATTEND Radiology Neuroradiology
PROC: 0T25X0Z Change Drainage Device in Kidney, External Approach (ICD-10-PCS; principal; 2019-02-18)
DX: Z43.6 Encounter for attention to other artificial openings of urinary tract (principal); N13.5 Crossing vessel and stricture of ureter without hydronephrosis; J44.9 Chronic obstructive pulmonary disease, unspecified; F41.9 Anxiety disorder, unspecified; F32.9 Major depressive disorder, single episode, unspecified; Z85.43 Personal history of malignant neoplasm of ovary; Z85.038 Personal history of other malignant neoplasm of large intestine; Z90.49 Acquired absence of other specified parts of digestive tract; Z90.710 Acquired absence of both cervix and uterus; Z98.51 Tubal ligation status; Z79.2 Long term (current) use of antibiotics; Z79.899 Other long term (current) drug therapy; Z98.890 Other specified postprocedural states
CPT/HCPCS: 50435; C1729

== ENCOUNTER 2019-02-21 09:21 | Inpatient (IN) | payer MEDICARE ==
[2019-02-21 10:12] LABS: #Basophils 0.1 thou/uL (0.0-0.2); #Lymphocytes 1.1 thou/uL (1.20-3.40); #Monocytes 0.5 thou/uL (0.11-0.59); #Neutrophils 4.1 thou/uL (1.40-6.50); %Basophils 1.1 % (0.0-1.0); %Eosinophils 0.5 % (0.0-10.0); %Lymphocytes 18.9 % (21.0-51.0); %Monocytes 9.1 % (0.0-10.0); %Neutrophils 70.4 % (42.0-75.0); Hemoglobin 15.3 g/dL (12.0-16.0); Mean Corpuscular HGB CONC 33.4 g/dL (32.0-36.0); Mean Corpuscular Hemoglobin 30.5 pg (27.0-31.0); Mean Corpuscular Volume 91.3 fL (78.0-98.0); Mean Platelet Volume 7.1 fL (7.4-10.4); Platelet Count 213 thou/uL (130-400); RBC Distribution Width 12.4 % (11.5-14.5); Red Blood Cell (RBC) Count 5.02 mill/uL (4.20-5.40); White Blood Cell (WBC) Count 5.9 thou/uL (4.8-10.8)
[2019-02-21 10:37] LABS: ALT (SGPT) 12 U/L (8-55); AST (SGOT) 17 U/L (5-34); Albumin 4.7 g/dL (3.4-4.8); Alkaline Phosphatase 182 U/L (40-150); Anion Gap 18 mmol/L (10-20); BUN (Urea Nitrogen) 31 mg/dL (9.8-20.1); Calc. Creatinine Clearance 0 mL/min (70-130); Calcium 10.6 mg/dL (7.8-10.44); Carbon Dioxide 27 mmol/L (23-31); Chloride 100 mmol/L (98-107); Estimated GFR-MDRD 51; Globulin 3.4 g/dL (2.4-3.5); Glucose 109 mg/dL (80-115); Protein, Total 8.1 g/dL (6.0-8.3); Sodium 140 mmol/L (136-145)
--- NOTE | 2019-02-21 12:35 | CT ---
FCT abdomen and pelvis with IV contrast HISTORY: Abdomen pain. Bloating. Colon cancer. Prior surgeries. COMPARISON: 11/25/2018. FINDINGS: Calcified granulomata at the lung bases and within the solid organs are consistent with hea led granulomatous disease. Gallbladder surgically absent. Lobular low-density lesions with peripheral nodular enhancement of the right liver lobe are stable and consistent with hemangiomas. There is pro minent calcification throughout the arterial structures. Lobular lesion involving the lower anterior abdominal wall musculature just to the right of midline is stable compared to recent PET scan. Right percutaneous nephrostomy catheter in place with decompression of the renal collecting system. Extensive postoperative changes of the colon. There is marked distention of small bowel and large bow el loops within the mid to lower abdomen, especially the left abdomen. Transition to decompressed dis felicia colon within the lower posterior pelvis is present where there is ill-defined thickening of the c olon. Some gas and stool are present within the distal colon and rectum. IMPRESSION: High-grade distal bowel obstruction, favored to be at the level of the sigmoid colon. The masslike wall thickening is concerning for recurrent neoplasm, rather than adhesion. Lobular lesion involving the lower right anterior abdominal wall is unchanged in appearance from rece nt PET scan. Chronic type findings are stable.
--- NOTE | 2019-02-21 13:19 | PDOC.FPRHP ---
- History of Present Illness Chief Complaint: Abdominal pain History of Present Illness: 68 yo F with PMH colon cancer with mets receiving radiation, previous SBO presents to ED with 3-4 wk history worsening intermittent cramping abdominal pain. Pain 8/10 at worst. Associated with nausea, vomiting, decreased PO intake. She feels bloated. Had been recommended gas x and laxatives which have not helped. Now not passing gas or having normal BMs. Reports some runny stool. Denies fever, CP, SOB. History of previous SBO 02/19/2018 requiring urgent ex lap followed by a second ex lap for intestinal ischemia that hospitalization. Oncologist: Karen Rahman Urology: Kael - nephrostomy tube replaced 02/18/19 ED Course: 1L NS - Allergies/Adverse Reactions Allergies Allergy/AdvReac Type Severity Reaction Status Date / Time No Known Drug Allergies Allergy Verified 11/10/18 13:11 - Home Medications Medication Instructions Recorded Confirmed Type Acetaminophen 1,000 mg PO Q6HR PRN 08/18/16 02/17/19 History Benzonatate [Tessalon] 100 mg PO TID PRN 10/28/17 02/17/19 History HYDROcodone/Acetaminophen [Wooton 1 - 2 tab PO Q6H PRN 02/27/18 02/17/19 History 10-325 Tablet] Ondansetron [Zofran ODT] 4 mg PO Q6HR PRN 02/27/18 02/17/19 History Levofloxacin [Levaquin] 1 tab-cap PO WILLCALL 09/29/18 02/17/19 History Simethicone [Gas-X Extra Strength] 1 tab.chew PO PRN 02/17/19 History - History PMHx: Colon cancer, last chemo 10/2017. Receiving radiation to R groin PSHx: Colon CA s/p resection 2011, mets to ovary s/p b/l oophorectomy, polyp removal, cholecystectomy, percutaneous nephrostomy, SBO 02/2018 requiring ex lap FHx: Uncle- unknown cancer, distant family with cancers Social: No alcohol or drug use. Current smoker 1.5 PPD for >50 yrs - Review of Systems General: reports: weight/appetite/sleep changes. denies: fever/chills Respiratory: denies: cough, shortness of breath Cardiovascular: denies: chest pain, edema Gastrointestinal: reports: nausea, vomiting, constipation, abdominal pain. denies: GI bleeding Genitourinary: denies: incontinence, dysuria Skin: denies: rashes, lesions Musculoskeletal: denies: swelling Neurological: denies: syncope - Vital signs BP: 137/86 HR: 109 RR: 18 Tmax: 98.1 Pox: 99% on RA Wt: 44 kg - Physical Exam Constitutional: other (in discomfort) HEENT: normocephalic and atraumatic Neck: trachea midline Heart: RRR, normal S1/S2, pulses present, no edema Lungs: CTAB, no respiratory distress, no wheezing Abdomen: soft, non-tender, bowel sounds present (hyperactive), no hernias Musculoskeletal: normal structure, normal tone Neurological: no focal deficit Skin: no rash/lesions Heme/Lymphatic: no unusual bruising or bleeding Psychiatric: normal mood and affect FMR H&P: Results - Labs Result Diagrams: 02/21/19 10:05 02/21/19 10:05 Lab results: WBC 5.9 thou/uL (4.8-10.8) 02/21/19 10:05 Hgb 15.3 g/dL (12.0-16.0) 02/21/19 10:05 Hct 45.8 % (36.0-47.0) 02/21/19 10:05 MCV 91.3 fL (78.0-98.0) 02/21/19 10:05 Plt Count 213 thou/uL (130-400) 02/21/19 10:05 Neutrophils % 70.4 % (42.0-75.0) 02/21/19 10:05 Sodium 140 mmol/L (136-145) 02/21/19 10:05 Potassium 5.0 mmol/L (3.5-5.1) 02/21/19 10:05 Chloride 100 mmol/L (98-107) 02/21/19 10:05 Carbon Dioxide 27 mmol/L (23-31) 02/21/19 10:05 BUN 31 mg/dL (9.8-20.1) H 02/21/19 10:05 Creatinine 1.07 mg/dL (0.6-1.1) 02/21/19 10:05 Glucose 109 mg/dL (80-115) 02/21/19 10:05 Calcium 10.6 mg/dL (7.8-10.44) H 02/21/19 10:05 Total Bilirubin 1.0 mg/dL (0.2-1.2) 02/21/19 10:05 AST 17 U/L (5-34) 02/21/19 10:05 ALT 12 U/L (8-55) 02/21/19 10:05 Alkaline Phosphatase 182 U/L (40-150) H 02/21/19 10:05 Serum Total Protein 8.1 g/dL (6.0-8.3) 02/21/19 10:05 Albumin 4.7 g/dL (3.4-4.8) 02/21/19 10:05 FMR H&P: A/P - Problem List (1) Small bowel obstruction Current Visit: Yes Status: Acute Code(s): K56.609 - UNSP INTESTNL OBST, UNSP TO PARTIAL VERSUS COMPLETE OBST (2) History of nephrostomy Current Visit: No Status: Acute Code(s): Z87.448 - PERSONAL HISTORY OF OTHER DISEASES OF URINARY SYSTEM (3) Metastatic colon cancer in female Current Visit: No Status: Acute Code(s): C78.5 - SECONDARY MALIGNANT NEOPLASM OF LARGE INTESTINE AND RECTUM (4) Status post partial colectomy Current Visit: No Status: Acute Code(s): Z90.49 - ACQUIRED ABSENCE OF OTHER SPECIFIED PARTS OF DIGESTIVE TRACT Comment: colon mass (5) Severe protein-calorie malnutrition Current Visit: No Status: Chronic Code(s): E43 - UNSPECIFIED SEVERE PROTEIN- CALORIE MALNUTRITION Comment: Ensure High Protein TID with meals (6) Tobacco abuse Current Visit: No Status: Chronic Code(s): Z72.0 - TOBACCO USE Comment: Ongoing, counseled regarding cessation - Plan SBO - CT ab/pelvis: high grade distal bowel obstruction at level of sigmoid colon with mass-like thickening - General surgery, Dr. Mendoza consulted from ED - NG placement, maintenance fluids, pain control. Plans to discuss with GI for possible scope. Likely surgery in the coming few days. - vital signs stable apart from tachycardia of 109 in ED - appreciate further recommendations from general surgery Hypovolemia - 2/2 GI loss and decreased PO intake - Hemoconcentrated, tachycardia, but Cr stable. - s/p 1L NS in ED, continue LR @ 120 History of metastatic colon cancer s/p resection - Josiah is primary oncologist, patient currently receiving radiation to groin for met found recently on PET scan History of nephrostomy tube - replaced 4/[address] Scruggs Diet: NPO Ppx: Lovenox PCP: none Dispo: admit inpatient FMR H&P: Upper Level - Pertinent history 68 yo female here for abdominal cramping pain and bloating. Approx 1 month. Pt has history of colon cancer with mets to ovary, s/p left colectomy. Hx of chemo , stopped about a year ago. Has also been getting radiation Assoc n/v/poor po intake. Gas x and laxatives with no improvement. BM have become mostly liquid recently, though more formed the past couple days. Poor po intake yesterday ( one glass of milk), no drink today except what she vomited back up. Pt has history of small bowel volvulus in February 2018 with exploratory laparotomy x 2 with adhesion lysis. Also had small bowel resection and anastomosis during reexploration. Small bowel was 90% viable. In ER, pt received 1L NS. - Pertinent findings 137/86 HR: 109 RR: 18 TEMP: 98.1 99% on RA GEN: mildly acute PULM: CTAB CARD: RRR, no m/g/r ABD: hypoactive, no guarding or tenderness to palpation CTabd: high grade distal bowel obstruction, favored to be at the level of the sigmoid colon; masslike ewall thickening is concerning for recurrent neoplasm rahter than adhesion - Plan Date/Time: 02/21/19 1319 IMax DO, have evaluated this patient and agree with findings/plan as outlined by accounting intern resident. Pertinent changes/additions are listed here. #small bowel obstruction -Dr. Mendoza was consulted from the ER and Dr. Medina has discussed case with him -GI also consulted by Dr. Mendoza from the ER andd will evaluate for posssible scope to observe wall thickening -NG tube placed -admit to surgery for evaluation -prn pain meds -fluid rehydrate and monitor labs for hemodilution #Hx of metastatic colon cancer s/p resection #hypovolemia Addendum - Attending - Attending Attestation Date/Time: 02/21/19 2561 I personally evaluated the patient and discussed the management with team. I agree with and repeated the History, Examination, Assessment and Plan documented above with any addition or exceptions noted below. Mildly distended abd, mild ttp no peritoneal signs. Morphine, IVF, NGT. Agree with GS.
--- NOTE | 2019-02-21 14:04 | CON ---
DATE OF CONSULTATION: 02/21/2019 CHIEF COMPLAINT: Abdominal pain, bloating. HISTORY OF PRESENT ILLNESS: This is a 68-year-old female who is well known to me, who has a remote history of left colectomy for T3 N0 colon cancer associated with dropped metastasis to ovary. She has undergone chemotherapy in the past and was on maintenance chemotherapy, a year ago. She presented with small-bowel volvulus that necessitated operation. She now presents with progressive abdominal bloating while she is getting radiation to known recurrent malignancy in her abdominal wall, not able to eat, been throwing up more. Now, she has had more severe pain, nausea, vomiting, unable to keep anything down. CT scan shows an obstructive process in the sigmoid colon. PAST MEDICAL HISTORY: Includes colon cancer. PAST SURGICAL HISTORY: As above. MEDICATIONS: Medicines taken daily, 1. Gas-X. 2. Zofran. 3. Levaquin for recent UTI. 4. Slick. 5. Tessalon. 6. Acetaminophen. ALLERGIES: NO KNOWN DRUG ALLERGIES. SOCIAL HISTORY: Former smoker. No alcohol. REVIEW OF SYSTEMS: Otherwise negative. PHYSICAL EXAMINATION: VITAL SIGNS: Her pulse is 100, blood pressure is 110/87. She is afebrile. CHEST: Clear. HEART: Increased rate, regular rhythm. ABDOMEN: Soft, diffusely tender with guarding without rebound. LABORATORY DATA: White blood cell count is 5, hemoglobin 15, platelet count is 213. Creatinine is 1.07. Sodium 140, potassium 5. CT scan shows colon and small bowel obstruction, looks to be from sigmoid obstruction. ASSESSMENT: Malignant sigmoid obstruction be it recurrent colon cancer or extrinsic compression disease. PLAN: Less likely would be ischemic stricture from a radiation treatment. NG tube to decompress or admit for fluid resuscitation. Likely will have GI see her for flexible sigmoidoscopy in the next few days. I suspect she is going to need some diverting ostomy or colostomy, likely a diverting loop colostomy. Job ID: [id number]
[2019-02-21 14:05] LABS: Bilirubin Small (Negative); Blood, Urine Negative (Negative); Glucose, Urine (Dipstick) Negative (Negative); Leukocyte Negative (Negative); Nitrite Negative (Negative); Protein, Urine (Dipstick) Negative (Neg-Trace); Specific Gravity, Urine 1.015 (1.005-1.030); Urobilinogen 0.2 mg/dL (0.2-1.0); pH, Urine 5.5 (5.0-9.0)
[2019-02-21 14:06] LABS: Clarity Clear (Clear)
[2019-02-21] MEDS ORDERED: ISOVUE-370 76%-LOCM 1 ML ONE (14:45)
[2019-02-21] MEDS ORDERED: Morphine 4 MG/ML VIAL ONE (14:49)
[2019-02-21] MEDS ORDERED: Ondansetron PF 4 MG/2 ML Vial IVP PRN (16:08)
[2019-02-21] MEDS ORDERED: Fentanyl 100 MCG/2 ML VIAL SLOW IVP PRN (16:08)
[2019-02-21] MEDS ORDERED: Acetaminophen 1,000 MG in Premix Bag 1 BAG IVPB PRN (16:08)
[2019-02-21] MEDS: Lactated Ringer's 1,000 ML IV SCH (16:37)
[2019-02-21 19:02] VITALS: BMI 19.6
[2019-02-21] MEDS: Nicotine 14 MG PATCH TD SCH (19:52)
[2019-02-21] MEDS: Fentanyl 100 MCG/2 ML VIAL SLOW IVP PRN (19:53)
[2019-02-22] MEDS: Lactated Ringer's 1,000 ML IV SCH ×4 (00:19→23:11)
[2019-02-22] MEDS: Fentanyl 100 MCG/2 ML VIAL SLOW IVP PRN ×6 (02:06→23:08)
--- NOTE | 2019-02-22 05:56 | PDOC.FM ---
- Subjective Subjective: Ms. Pinon reports she has not passed any gas or stool overnight. Continued intermittent abdominal pain. She does not want to take pain medications very frequently. - Objective MAR Reviewed: Yes Vital Signs & Weight: Vital Signs (12 hours) Temp Pulse Resp BP Pulse Ox 02/22/19 04:20 98.1 F 94 18 124/77 96 02/22/19 00:41 98 F 92 18 126/79 98 02/21/19 20:00 97 02/21/19 18:40 98.0 F 89 18 128/53 L 97 Weight Weight 47.219 kg I&O: 02/20/19 02/21/19 02/22/19 06:59 06:59 06:59 Intake Total 1440 Output Total 200 Balance 1240 Result Diagrams: 02/22/19 06:16 02/22/19 06:16 Phys Exam - Physical Examination Constitutional: NAD Respiratory: no wheezing Cardiovascular: RRR Gastrointestinal: soft, non-tender mildly distended Musculoskeletal: no edema Neurological: non-focal Psychiatric: normal affect Skin: normal turgor, cap refill <2 seconds Dx/Plan (1) Small bowel obstruction Code(s): K56.609 - UNSP INTESTNL OBST, UNSP TO PARTIAL VERSUS COMPLETE OBST Status: Acute (2) History of nephrostomy Code(s): Z87.448 - PERSONAL HISTORY OF OTHER DISEASES OF URINARY SYSTEM Status : Acute (3) Metastatic colon cancer in female Code(s): C78.5 - SECONDARY MALIGNANT NEOPLASM OF LARGE INTESTINE AND RECTUM Status: Acute (4) Status post partial colectomy Code(s): Z90.49 - ACQUIRED ABSENCE OF OTHER SPECIFIED PARTS OF DIGESTIVE TRACT Status: Acute (5) Severe protein-calorie malnutrition Code(s): E43 - UNSPECIFIED SEVERE PROTEIN-CALORIE MALNUTRITION Status: Chronic (6) Tobacco abuse Code(s): Z72.0 - TOBACCO USE Status: Chronic - Plan Plan: SBO - CT ab/pelvis: high grade distal bowel obstruction at level of sigmoid colon with mass-like thickening - General surgery, Dr. Mendoza consulted from ED - NG placement, maintenance fluids, pain control. Plans to discuss with GI for possible scope, possible surgery in the coming days. - vital signs stable - NG tube in place - appreciate further recommendations from general surgery Hypovolemia, improving - 2/2 GI loss and decreased PO intake - s/p 1L NS in ED, continue LR @ 120 History of metastatic colon cancer s/p resection - Josiah is primary oncologist, patient currently receiving radiation to groin for met found recently on PET scan History of nephrostomy tube - replaced 02/[address] Scruggs Diet: NPO Ppx: Lovenox PCP: jesus Addendum - Attending - Attending Attestation Date/Time: 02/22/19 9320 I personally evaluated the patient and discussed the management with Dr. Medina. I agree with the History, Examination, Assessment and Plan documented above with any addition or exceptions noted below. The patient continues to have abdominal pain. NG tube in place. Awaiting gen surg recs. Suspect she will get a scope tomorrow.
[2019-02-22 07:02] LABS: Hemoglobin 12.6 g/dL (12.0-16.0); Mean Corpuscular HGB CONC 33.1 g/dL (32.0-36.0); Mean Corpuscular Hemoglobin 30.9 pg (27.0-31.0); Mean Corpuscular Volume 93.1 fL (78.0-98.0); Platelet Count 173 thou/uL (130-400); RBC Distribution Width 12.4 % (11.5-14.5); Red Blood Cell (RBC) Count 4.07 mill/uL (4.20-5.40); White Blood Cell (WBC) Count 3.3 thou/uL (4.8-10.8)
[2019-02-22 07:12] LABS: ALT (SGPT) 7 U/L (8-55); AST (SGOT) 13 U/L (5-34); Albumin 3.4 g/dL (3.4-4.8); Alkaline Phosphatase 134 U/L (40-150); Anion Gap 17 mmol/L (10-20); BUN (Urea Nitrogen) 22 mg/dL (9.8-20.1); Bilirubin, Total 0.6 mg/dL (0.2-1.2); Calc. Creatinine Clearance 54 mL/min (70-130); Calcium 8.9 mg/dL (7.8-10.44); Carbon Dioxide 20 mmol/L (23-31); Chloride 105 mmol/L (98-107); Estimated GFR-MDRD 78; Globulin 2.4 g/dL (2.4-3.5); Glucose 70 mg/dL (80-115); Potassium 3.9 mmol/L (3.5-5.1); Protein, Total 5.8 g/dL (6.0-8.3); Sodium 138 mmol/L (136-145)
[2019-02-22] MEDS ORDERED: Lidocaine 2% PF 100 mg/5 ml Syringe ONE (08:44)
[2019-02-22] MEDS: Enoxaparin Sodium 30 MG/0.3 ML SYRINGE SC SCH (09:07)
[2019-02-22 10:07] LABS: Band 26 % (5-11); Eosinophils 1 % (0-10); Lymphocytes 43 % (21-51); MDiff Complete? YES; Monocytes 10 % (0-10); Neutrophil 20 % (42-75); RBC Morphology Normal
--- NOTE | 2019-02-22 15:42 | PDOC.GSPN ---
Surgery Progress Note: Subj - Subjective Narrative: She is having crampy pain at times. NG was not working properly earlier Surgery Progress Note: Obj - Vital signs Vital signs: Vital Signs - Most Recent Temp Pulse Resp BP Pulse Ox 98.3 F 86 16 111/74 96 02/22/19 12:20 02/22/19 12:20 02/22/19 12:20 02/22/19 12:20 02/22/19 12:20 - Physical Exam General: no distress Abdomen: soft, distended, tender (diffusely without rebound) Surgery Progress Note: Results - Labs Result Diagrams: 02/22/19 06:16 02/22/19 06:16 Lab results: Laboratory Results - last 24 hr 02/22/19 02/22/19 06:16 06:16 WBC 3.3 L RBC 4.07 L Hgb 12.6 Hct 38.0 MCV 93.1 MCH 30.9 MCHC 33.1 RDW 12.4 Plt Count 173 MPV 7.0 L Neutrophils % (Manual) 20 L Band Neuts % (Manual) 26 H Lymphocytes % (Manual) 43 Monocytes % (Manual) 10 Eosinophils % (Manual) 1 Neutrophils # Not Reportable Lymphocytes # Not Reportable RBC Morph Comment Normal Sodium 138 Potassium 3.9 Chloride 105 Carbon Dioxide 20 L Anion Gap 17 BUN 22 H Creatinine 0.74 Estimated GFR (MDRD) 78 Glucose 70 L Calcium 8.9 Total Bilirubin 0.6 AST 13 ALT 7 L Alkaline Phosphatase 134 Serum Total Protein 5.8 L Albumin 3.4 Globulin 2.4 Albumin/Globulin Ratio 1.4 Surgery Progress Note: A/P - Problem (1) Metastatic colon cancer in female Current Visit: No Code(s): C78.5 - SECONDARY MALIGNANT NEOPLASM OF LARGE INTESTINE AND RECTUM Status: Acute Assessment and Plan: Likely malignant obstruction. GI to do flex sig tomorrow. I suspect she will need diverting loop ostomy for palliation
--- NOTE | 2019-02-22 16:14 | RAD ---
Exam: Abdomen one view: HISTORY: Evaluate NG tube placement position. COMPARISON: 02/22/2019 FINDINGS: An NG tube is in place with the tip in the stomach, the sidehole is at the level of the hemidiaphragm so its position could be improved by some advancement so that the side hole is completely in the sto mach. Right-sided percutaneous catheter. Some gas in the colon. IMPRESSION: NG tube in place. This could be advanced somewhat so that the side hole lies completely within the st omach.
--- NOTE | 2019-02-22 17:45 | CON ---
DATE OF CONSULTATION: 02/22/2019 REASON FOR CONSULTATION: Colonic obstruction. CONSULTING PHYSICIAN: Destin Mendoza MD. HISTORY OF PRESENT ILLNESS: The patient is a 68-year-old female with past medical history of colon cancer status post resection, but now with metastatic disease to the liver, lungs and anterior abdominal wall, presenting with complaints of abdominal pain, nausea, and vomiting. She states that she was in her usual state of health until approximately 1 month ago when she began to have an increased feeling of fullness in her abdomen that was initially accompanied by increased passage of flatus. She attempted to use laxatives (senna and Colace) at increasing amounts in order to facilitate having a bowel movement to relieve the sense of fullness but had mild to no relief in symptoms. This progressively worsened over the course of the next month with the patient at times trying to induce vomiting in order to relieve this increased pressure in her abdomen, is also associated with increased abdominal distention and weight loss of approximately 5 pounds over the last 2 to 3 weeks. However, over the last 2 to 3 days, the patient began to experience increased nausea with nonbloody emesis with approximately 4 to 5 episodes per day. This was also associated with increased generalized abdominal pain throughout the entire abdomen that was characterized as a tightening type pain, was constant, with waxing and waning severity, and reached a severity of approximately 8/10. This was associated with decreased ability to have a bowel movement as well as decreased passage of flatus, which then prompted her to seek healthcare assistance at the [facility]. Within the ER she was noted to have significantly abnormal imaging of the sigmoid colon concerning for obstruction and was admitted to the hospital for further evaluation. Currently, she states that she continues to have the pain, but it is somewhat alleviated with the current pain medication regimen. Currently, she denies any vomiting, fevers, chills, abdominal pain, dysphagia, odynophagia. REVIEW OF SYSTEMS: A 10-category review of systems was obtained with all responses negative except for the pertinent positives as listed in HPI. PAST MEDICAL HISTORY: As per HPI. PAST SURGICAL HISTORY: Exploratory laparotomy for small bowel obstruction in 02/2018, bilateral oophorectomy secondary to metastatic disease, colon cancer resection 2011, cholecystectomy, percutaneous nephrostomy tube in the right kidney. FAMILY HISTORY: The patient has an uncle with an unknown cancer as well as other distant family members with unknown cancers. SOCIAL HISTORY: Denies any alcohol or illicit drug use, but is currently smoking approximately 1 and 1/2 pack per day. OUTPATIENT MEDICATIONS: Reviewed. ALLERGIES: NO KNOWN DRUG ALLERGIES. PHYSICAL EXAMINATION: VITAL SIGNS: Temperature 98.3, pulse 86, blood pressure 111/74, respiratory rate 16, saturating 96% on room air. GENERAL: The patient was lying in bed, in no acute distress. Alert and oriented x4. HEENT: Normocephalic, atraumatic. NECK: Supple. No JVD or scleral icterus noted. CARDIOVASCULAR: Regular rate and rhythm with no discernible murmurs, gallops, or rubs. RESPIRATORY: Clear to auscultation bilaterally with no discernible wheezes or rales. ABDOMEN: Hypoactive bowel sounds. Soft. Mild abdominal distention. No tenderness to palpation in all abdominal quadrants. EXTREMITIES: No cyanosis, clubbing, or edema. LABORATORY DATA: CBC with a white blood cell count of 3.3, hemoglobin 12.6, hematocrit 38, platelets 173. Chemistry with a sodium of 138, potassium 3.9, chloride 105, CO2 20, BUN 22, creatinine 0.74, glucose 70, AST 13, ALT 7, alkaline phosphatase 134, total bilirubin 0.6. IMAGING DATA: CT of the abdomen and pelvis was obtained on 02/21/2019, which showed granulomatous disease in the bilateral lung bases as well as some stable size hemangiomas within the liver. A stable lobular lesion was located in the lower right anterior abdominal wall. However, she did exhibit marked distention of the small bowel as well as ill-defined thickening of the sigmoid colon isabel concerning for inflammatory or malignant process. ASSESSMENT AND PLAN: The patient is a 68-year-old female with past medical history of metastatic colon cancer, presenting with colonic obstruction. Colonic obstruction: The patient is presenting with a history of complicated colon cancer that was initially diagnosed in 2011 for which she underwent left hemicolectomy. Since that time, she has been diagnosed with metastatic disease with removal of bilateral ovaries due to metastatic spread and has been more recently been getting radiation to the lower abdomen to treat more superficial metastatic disease along the anterior abdominal wall. However, over the last month, she has been having symptoms of increased fullness, decreased flatus, and decreased ability to have a bowel movement with imaging on this admission showing significant colonic obstruction within the sigmoid colon. At this time it is unclear whether or not this obstructive process within the sigmoid colon is due to swelling/edema from radiation therapy, although this is less likely given her last round of radiation was in 10/2018. She does also have a history of recurrence of her disease at the anastomotic site and this could potentially be a recurrence as well. Differential at this point could include radiation colitis, recurrence of colon adenocarcinoma, volvulus (much less likely) diverticular disease with increased inflammation (less likely) and/or new primary colon cancer (less likely). RECOMMENDATIONS: 1. Would continue n.p.o. status and NG tube placed to intermittent wall suction to decompress the GI tract. 2. Continue to monitor chemistry and electrolyte status given her NG tube to wall suction and an inability to have bowel movement. 3. We will plan for a flexible sigmoidoscopy tomorrow as time permits. Please administer tap water enema x2 prior to the procedure. 4. Further recommendations to follow flexible sigmoidoscopy. We will continue to follow. Please call with any questions. Job ID: [id number]
[2019-02-22] MEDS: Acetaminophen 1,000 MG in Premix Bag 1 BAG IVPB PRN (18:00)
[2019-02-22] MEDS: Nicotine 14 MG PATCH TD SCH (20:34)
[2019-02-23] MEDS: Acetaminophen 1,000 MG in Premix Bag 1 BAG IVPB PRN (04:28)
[2019-02-23] MEDS: Fentanyl 100 MCG/2 ML VIAL SLOW IVP PRN (06:08)
--- NOTE | 2019-02-23 06:18 | PDOC.FM ---
- Subjective Subjective: Ms. Foremen denies any BM or flatus apart from 2 recent enemas. Abdominal pain continues but improving. - Objective MAR Reviewed: Yes Vital Signs & Weight: Vital Signs (12 hours) Temp Pulse Resp BP Pulse Ox 02/23/19 05:31 98.2 F 85 16 130/73 95 02/23/19 00:10 97.7 F 85 16 120/73 95 02/22/19 20:30 95 02/22/19 19:35 98 F 85 16 119/71 95 Weight Admit Weight 47.219 kg Weight 47.219 kg I&O: 02/21/19 02/22/19 02/23/19 06:59 06:59 06:59 Intake Total 1440 2800 Output Total 200 410 Balance 1240 2390 Result Diagrams: 02/23/19 06:18 02/23/19 06:18 Phys Exam - Physical Examination Respiratory: clear to auscultation bilateral Cardiovascular: RRR, no significant murmur Gastrointestinal: soft, non-tender hypoactive bowel sounds, distention Musculoskeletal: no edema Neurological: non-focal Psychiatric: normal affect Skin: normal turgor Dx/Plan (1) Small bowel obstruction Code(s): K56.609 - UNSP INTESTNL OBST, UNSP TO PARTIAL VERSUS COMPLETE OBST Status: Acute (2) History of nephrostomy Code(s): Z87.448 - PERSONAL HISTORY OF OTHER DISEASES OF URINARY SYSTEM Status : Acute (3) Metastatic colon cancer in female Code(s): C78.5 - SECONDARY MALIGNANT NEOPLASM OF LARGE INTESTINE AND RECTUM Status: Acute (4) Status post partial colectomy Code(s): Z90.49 - ACQUIRED ABSENCE OF OTHER SPECIFIED PARTS OF DIGESTIVE TRACT Status: Acute (5) Severe protein-calorie malnutrition Code(s): E43 - UNSPECIFIED SEVERE PROTEIN-CALORIE MALNUTRITION Status: Chronic (6) Tobacco abuse Code(s): Z72.0 - TOBACCO USE Status: Chronic - Plan Plan: SBO - CT ab/pelvis: high grade distal bowel obstruction at level of sigmoid colon with mass-like thickening - General surgery, Dr. Mendoza consulted from ED - NG placement, maintenance fluids, pain control. Possible surgery in the coming days. - GI plans to do flex sig today - vital signs stable - NG tube in place Hypovolemia, improved - continue LR @ 120 History of metastatic colon cancer s/p resection - Josiah is primary oncologist, patient currently receiving radiation to groin for met found recently on PET scan History of nephrostomy tube - replaced 02/[address] Scruggs Diet: NPO Ppx: Lovenox PCP: jesus Addendum - Attending - Attending Attestation Date/Time: 02/23/19 1430 I personally evaluated the patient and discussed the management with Dr. Medina I agree with the History, Examination, Assessment and Plan documented above with any addition or exceptions noted below. For endoscopy today and expectant management. Appreciate GI recommendations.
[2019-02-23 06:26] LABS: #Basophils 0.1 thou/uL (0.0-0.2); #Eosinphils 0.1 thou/uL (0.0-0.7); #Lymphocytes 1.3 thou/uL (1.20-3.40); #Monocytes 0.6 thou/uL (0.11-0.59); %Basophils 1.4 % (0.0-1.0); %Eosinophils 1.7 % (0.0-10.0); %Monocytes 14.6 % (0.0-10.0); %Neutrophils 50.2 % (42.0-75.0); Hemoglobin 12.9 g/dL (12.0-16.0); Mean Corpuscular HGB CONC 33.3 g/dL (32.0-36.0); Mean Corpuscular Hemoglobin 31.3 pg (27.0-31.0); Mean Corpuscular Volume 93.8 fL (78.0-98.0); Platelet Count 179 thou/uL (130-400); RBC Distribution Width 12.2 % (11.5-14.5); Red Blood Cell (RBC) Count 4.13 mill/uL (4.20-5.40); White Blood Cell (WBC) Count 3.9 thou/uL (4.8-10.8)
[2019-02-23 06:43] LABS: ALT (SGPT) 7 U/L (8-55); AST (SGOT) 16 U/L (5-34); Albumin 3.5 g/dL (3.4-4.8); Alkaline Phosphatase 137 U/L (40-150); Anion Gap 21 mmol/L (10-20); BUN (Urea Nitrogen) 16 mg/dL (9.8-20.1); Bilirubin, Total 0.6 mg/dL (0.2-1.2); Calc. Creatinine Clearance 52 mL/min (70-130); Calcium 9.3 mg/dL (7.8-10.44); Carbon Dioxide 17 mmol/L (23-31); Chloride 103 mmol/L (98-107); Estimated GFR-MDRD 75; Globulin 2.7 g/dL (2.4-3.5); Glucose 66 mg/dL (80-115); Potassium 3.9 mmol/L (3.5-5.1); Protein, Total 6.2 g/dL (6.0-8.3); Sodium 137 mmol/L (136-145)
[2019-02-23] MEDS: Enoxaparin Sodium 30 MG/0.3 ML SYRINGE SC SCH (08:18)
[2019-02-23] MEDS: Lactated Ringer's 1,000 ML IV SCH ×3 (08:19→19:00)
[2019-02-23] MEDS ORDERED: Ondansetron HCl/PF 4 MG/2 ML Vial IVP PRN (12:41)
[2019-02-23] MEDS ORDERED: Promethazine HCl 25 MG/ML VIAL SLOW IVP PRN (12:41)
[2019-02-23] MEDS ORDERED: Promethazine HCl 25 MG/ML VIAL IM PRN (12:41)
--- NOTE | 2019-02-23 14:00 | OP ---
DATE OF PROCEDURE: 02/23/2019 PROCEDURE PERFORMED: Flexible sigmoidoscopy, diagnostic. PREOPERATIVE DIAGNOSES: Colonic obstruction and history of recurrent colon cancer. DESCRIPTION OF PROCEDURE: Informed consent was obtained. The patient was sedated with general anesthesia. The rectal exam was performed and was normal. The preparation was poor in the colon and the rectum was irrigated with water to visualize the area. The colonoscope was advanced to the distal sigmoid at about 22 cm, where a stricture was encountered. The mucosa was edematous and puckered close in this area; however, no actual mucosal neoplastic lesion could be identified. The mucosa was somewhat dusky in that area, but no fibrotic stricture or mass lesion was identified. Exchange was made for a diagnostic endoscope, which also could not be passed through the strictured area. Retroflex views in the rectum were unremarkable. IMPRESSION: Obstructing sigmoid stricture at around 22 cm. The area was puckered shut without apparent mucosal defect. The mucosa was somewhat edematous and slightly dusky, but no clear mucosal lesion was identified. This could be still a malignant stricture or ischemic stricture or less likely radiation related. RECOMMENDATIONS: Discussed with Dr. Mendoza. The plan is most likely for diverting colostomy over the next couple of days. Job ID: [id number]
[2019-02-23] MEDS ORDERED: Dexamethasone 20 MG/5 ML VIAL ONE (14:31)
[2019-02-23] MEDS ORDERED: Ondansetron PF 4 MG/2 ML Vial ONE (14:31)
[2019-02-23] MEDS ORDERED: ePHEDrine 50 MG/ML VIAL ONE (14:31)
[2019-02-23] MEDS ORDERED: PROPOFOL 200 MG/20 ML VIAL ONE (14:31)
[2019-02-23] MEDS ORDERED: Succinylcholine Chloride 20 MG/ML 10 ml SYRINGE FS ONE (14:31)
[2019-02-23] MEDS ORDERED: Lidocaine 1% PF 5 ML VIAL ONE (14:31)
[2019-02-23] MEDS ORDERED: PHENYLEPHRINE-NS 100 MCG/ML 10 ML SYRINGE ONE ×2 (14:31)
--- NOTE | 2019-02-23 17:47 | PDOC.GSPN ---
Surgery Progress Note: Subj - Subjective Patient reports: feels better (Not having the cramping) Surgery Progress Note: Obj - Vital signs Vital signs: Vital Signs - Most Recent Temp Pulse Resp BP Pulse Ox 97.5 F L 91 16 111/66 95 02/23/19 13:40 02/23/19 13:40 02/23/19 13:40 02/23/19 13:40 02/23/19 13:40 - Physical Exam General: no distress Cardiovascular: regular rate and rhythm Respiratory: clear to auscultation Abdomen: soft, distended Surgery Progress Note: Results - Labs Result Diagrams: 02/23/19 06:18 02/23/19 06:18 Lab results: Laboratory Results - last 24 hr 02/23/19 02/23/19 06:18 06:18 WBC 3.9 L RBC 4.13 L Hgb 12.9 Hct 38.7 MCV 93.8 MCH 31.3 H MCHC 33.3 RDW 12.2 Plt Count 179 MPV 7.0 L Neutrophils % 50.2 Lymphocytes % 32.0 Monocytes % 14.6 H Eosinophils % 1.7 Basophils % 1.4 H Neutrophils # 2.0 Lymphocytes # 1.3 Monocytes # 0.6 H Eosinophils # 0.1 Basophils # 0.1 Sodium 137 Potassium 3.9 Chloride 103 Carbon Dioxide 17 L Anion Gap 21 H BUN 16 Creatinine 0.77 Estimated GFR (MDRD) 75 Glucose 66 L Calcium 9.3 Total Bilirubin 0.6 AST 16 ALT 7 L Alkaline Phosphatase 137 Serum Total Protein 6.2 Albumin 3.5 Globulin 2.7 Albumin/Globulin Ratio 1.3 Surgery Progress Note: A/P - Problem (1) Metastatic colon cancer in female Current Visit: No Code(s): C78.5 - SECONDARY MALIGNANT NEOPLASM OF LARGE INTESTINE AND RECTUM Status: Acute - Plan Plan: Anastamostic obstruction -Differential would be ischemic stricture vs. recurrent malignancy -Plan laparotomy tomorrow. Possible resection, possible diverting ileostomy
[2019-02-23] MEDS: Nicotine 14 MG PATCH TD SCH (20:15)
[2019-02-24] MEDS: Fentanyl 100 MCG/2 ML VIAL SLOW IVP PRN ×2 (03:00→06:15)
[2019-02-24] MEDS: Lactated Ringer's 1,000 ML IV SCH ×2 (03:03→11:51)
[2019-02-24 06:09] LABS: #Lymphocytes 1.1 thou/uL (1.20-3.40); #Monocytes 0.5 thou/uL (0.11-0.59); #Neutrophils 1.5 thou/uL (1.40-6.50); %Basophils 0.6 % (0.0-1.0); %Eosinophils 0.4 % (0.0-10.0); %Lymphocytes 35.5 % (21.0-51.0); %Monocytes 14.7 % (0.0-10.0); %Neutrophils 48.8 % (42.0-75.0); Hemoglobin 11.9 g/dL (12.0-16.0); Mean Corpuscular HGB CONC 32.1 g/dL (32.0-36.0); Mean Corpuscular Volume 93.5 fL (78.0-98.0); Mean Platelet Volume 7.1 fL (7.4-10.4); Platelet Count 176 thou/uL (130-400); RBC Distribution Width 12.2 % (11.5-14.5); Red Blood Cell (RBC) Count 3.96 mill/uL (4.20-5.40)
--- NOTE | 2019-02-24 06:14 | PDOC.FM ---
- Subjective Subjective: Ms. Pinon says there are no new changes. Abdominal mildly improved. Awaiting surgery today. - Objective Vital Signs & Weight: Vital Signs (12 hours) Temp Pulse Resp BP Pulse Ox 02/24/19 04:00 97.8 F 77 20 97/65 94 L 02/24/19 00:00 97.9 F 74 20 95/60 94 L 02/23/19 20:15 95 02/23/19 19:13 97.8 F 78 20 105/64 95 Weight Admit Weight 47.219 kg Weight 47.219 kg I&O: 02/22/19 02/23/19 02/24/19 06:59 06:59 06:59 Intake Total 1440 2800 2820 Output Total 200 410 650 Balance 1240 2390 2170 Result Diagrams: 02/24/19 05:52 02/24/19 05:52 Phys Exam - Physical Examination Respiratory: clear to auscultation bilateral Cardiovascular: RRR, no significant murmur Gastrointestinal: non-tender distended Musculoskeletal: no edema Neurological: non-focal Skin: normal turgor Dx/Plan (1) Small bowel obstruction Code(s): K56.609 - UNSP INTESTNL OBST, UNSP TO PARTIAL VERSUS COMPLETE OBST Status: Acute (2) History of nephrostomy Code(s): Z87.448 - PERSONAL HISTORY OF OTHER DISEASES OF URINARY SYSTEM Status : Acute (3) Metastatic colon cancer in female Code(s): C78.5 - SECONDARY MALIGNANT NEOPLASM OF LARGE INTESTINE AND RECTUM Status: Acute (4) Status post partial colectomy Code(s): Z90.49 - ACQUIRED ABSENCE OF OTHER SPECIFIED PARTS OF DIGESTIVE TRACT Status: Acute (5) Severe protein-calorie malnutrition Code(s): E43 - UNSPECIFIED SEVERE PROTEIN-CALORIE MALNUTRITION Status: Chronic (6) Tobacco abuse Code(s): Z72.0 - TOBACCO USE Status: Chronic - Plan Plan: SBO 2/2 sigmoid malignancy vs ischemic - CT ab/pelvis: high grade distal bowel obstruction at level of sigmoid colon with mass-like thickening - General surgery, Dr. Mendoza - plan for laparotomy today - GI - flex sig showed obstructing sigmoid structure @ 22 cm - vital signs stable - NG tube in place Hypovolemia, improved - continue LR @ 120 History of metastatic colon cancer s/p resection - Josiah is primary oncologist, patient currently receiving radiation to groin for met found recently on PET scan History of nephrostomy tube - replaced 02/[address] Scruggs Diet: NPO Ppx: Lovenox PCP: none Addendum - Attending - Attending Attestation Date/Time: 02/24/19 3690 I personally evaluated the patient and discussed the management with Dr. Medina I agree with the History, Examination, Assessment and Plan documented above with any addition or exceptions noted below. Awaiting surgery this PM expectant management patient aware of anticipated procedures.
[2019-02-24 06:37] LABS: ALT (SGPT) 9 U/L (8-55); AST (SGOT) 21 U/L (5-34); Alkaline Phosphatase 107 U/L (40-150); Anion Gap 17 mmol/L (10-20); BUN (Urea Nitrogen) 11 mg/dL (9.8-20.1); Bilirubin, Total 0.3 mg/dL (0.2-1.2); Calc. Creatinine Clearance 53 mL/min (70-130); Calcium 8.7 mg/dL (7.8-10.44); Carbon Dioxide 17 mmol/L (23-31); Chloride 105 mmol/L (98-107); Estimated GFR-MDRD 76; Globulin 2.5 g/dL (2.4-3.5); Glucose 79 mg/dL (80-115); Potassium 4.5 mmol/L (3.5-5.1); Protein, Total 5.5 g/dL (6.0-8.3); Sodium 134 mmol/L (136-145)
[2019-02-24] MEDS ORDERED: Fentanyl 100 MCG/2 ML VIAL ONE ×2 (12:56→15:02)
[2019-02-24] MEDS ORDERED: ceFOXitin 1 GM VIAL ONE (13:59)
[2019-02-24] MEDS ORDERED: Ondansetron HCl/PF 4 MG/2 ML Vial IVP PRN (15:00)
[2019-02-24] MEDS ORDERED: Promethazine HCl 25 MG/ML VIAL SLOW IVP PRN (15:00)
[2019-02-24] MEDS ORDERED: Promethazine HCl 25 MG/ML VIAL IM PRN ×3 (15:00→15:55)
[2019-02-24] MEDS ORDERED: PACU-Morphine 4MG/ML VIAL SLOW IVP PRN (15:00)
[2019-02-24] MEDS ORDERED: ePHEDrine 50 MG/ML VIAL ONE (15:31)
[2019-02-24] MEDS ORDERED: Lidocaine 1% PF 5 ML VIAL ONE (15:31)
[2019-02-24] MEDS ORDERED: Rocuronium Bromide 10 MG/ML (10ML VIAL) ONE (15:31)
[2019-02-24] MEDS ORDERED: PROPOFOL 200 MG/20 ML VIAL ONE (15:31)
[2019-02-24] MEDS ORDERED: Succinylcholine Chloride 20 MG/ML 10 ml SYRINGE FS ONE (15:31)
[2019-02-24] MEDS ORDERED: Ondansetron PF 4 MG/2 ML Vial ONE (15:31)
[2019-02-24] MEDS ORDERED: Dexamethasone 20 MG/5 ML VIAL ONE (15:31)
[2019-02-24] MEDS ORDERED: Glycopyrrolate 0.2 MG/ML 5 ML SYRINGE ONE (15:31)
[2019-02-24] MEDS ORDERED: Ondansetron PF 4 MG/2 ML Vial IVP PRN ×2 (15:41→15:55)
[2019-02-24] MEDS ORDERED: diphenhydrAMINE 50 MG/ML VIAL IM PRN (15:41)
[2019-02-24] MEDS ORDERED: Zolpidem Tartrate 5 MG TAB PO PRN (15:41)
[2019-02-24] MEDS ORDERED: diphenhydrAMINE 25 MG CAP PO PRN (15:41)
[2019-02-24] MEDS ORDERED: Naloxone HCl 0.4 mg/ml Vial IV PRN (15:41)
[2019-02-24] MEDS ORDERED: fentaNYL Citrate/PF 2,000 MCG in Sodium Chloride 0.9% 60 ML IV PRN (15:41)
[2019-02-24] MEDS ORDERED: diphenhydrAMINE 50 MG/ML VIAL IVP PRN (15:41)
[2019-02-24] MEDS ORDERED: Communication Order-Pharmacy FS SCH (15:45)
[2019-02-24] MEDS ORDERED: hydrALAZINE 20 MG/ML VIAL SLOW IVP PRN (15:55)
[2019-02-24] MEDS: Sodium Chloride 0.9% 1,000 ML IV SCH (16:44)
[2019-02-24] MEDS: Acetaminophen 1,000 MG in Premix Bag 1 BAG IVPB SCH (20:17)
[2019-02-24] MEDS: Famotidine/PF 20 mg/2ml Vial SLOW IVP SCH (20:18)
[2019-02-24] MEDS: Famotidine 20 MG TAB PO SCH (20:19)
[2019-02-24] MEDS: Nicotine 14 MG PATCH TD SCH (20:19)
[2019-02-25] MEDS: Acetaminophen 1,000 MG in Premix Bag 1 BAG IVPB SCH ×3 (01:07→11:58)
[2019-02-25] MEDS: Sodium Chloride 0.9% 1,000 ML IV SCH ×3 (03:30→17:27)
--- NOTE | 2019-02-25 06:41 | PDOC.FM ---
- Subjective Subjective: Ms. Pinon says her pain has been well controlled. No fever/chills. Concerned about the smell of colostomy. - Objective MAR Reviewed: Yes Vital Signs & Weight: Vital Signs (12 hours) Temp Pulse Resp BP Pulse Ox 02/25/19 04:39 97.7 F 86 16 99/59 L 97 02/25/19 00:21 97.7 F 94 16 92/54 L 97 02/24/19 19:45 96 02/24/19 19:37 97.7 F 91 16 100/61 96 Weight Admit Weight 47.219 kg Weight 47.219 kg I&O: 02/23/19 02/24/19 02/25/19 06:59 06:59 06:59 Intake Total 2800 2820 2500 Output Total 410 650 975 Balance 2390 2170 1525 Result Diagrams: 02/25/19 05:58 02/25/19 05:58 Phys Exam - Physical Examination Constitutional: NAD Respiratory: clear to auscultation bilateral Cardiovascular: RRR, no significant murmur Gastrointestinal: soft colostomy in place, incision clean, dry, intact Musculoskeletal: no edema Neurological: non-focal Psychiatric: normal affect Skin: normal turgor Dx/Plan (1) Small bowel obstruction Code(s): K56.609 - UNSP INTESTNL OBST, UNSP TO PARTIAL VERSUS COMPLETE OBST Status: Acute (2) History of nephrostomy Code(s): Z87.448 - PERSONAL HISTORY OF OTHER DISEASES OF URINARY SYSTEM Status : Acute (3) Metastatic colon cancer in female Code(s): C78.5 - SECONDARY MALIGNANT NEOPLASM OF LARGE INTESTINE AND RECTUM Status: Acute (4) Status post partial colectomy Code(s): Z90.49 - ACQUIRED ABSENCE OF OTHER SPECIFIED PARTS OF DIGESTIVE TRACT Status: Acute (5) Severe protein-calorie malnutrition Code(s): E43 - UNSPECIFIED SEVERE PROTEIN-CALORIE MALNUTRITION Status: Chronic (6) Tobacco abuse Code(s): Z72.0 - TOBACCO USE Status: Chronic - Plan Plan: SBO 2/2 sigmoid malignancy s/p diverting ileostomy POD #1 - CT ab/pelvis: high grade distal bowel obstruction at level of sigmoid colon with mass-like thickening - General surgery, Dr. Mendoza - GI - flex sig showed obstructing sigmoid structure @ 22 cm - vital signs stable - NG tube in place, to be removed and transition to clears today Hypovolemia, improved - continue LR @ 120 History of metastatic colon cancer s/p resection - Josiah is primary oncologist, patient currently receiving radiation to groin for met found recently on PET scan History of nephrostomy tube - replaced 02/[address] Scruggs, plan for replacement today Diet: NPO Ppx: Lovenox PCP: none Addendum - Attending - Attending Attestation Date/Time: 02/25/19 1048 I personally evaluated the patient and discussed the management with Dr. Medina I agree with the History, Examination, Assessment and Plan documented above with any addition or exceptions noted below.
[2019-02-25 06:42] LABS: #Basophils 0.1 thou/uL (0.0-0.2); #Lymphocytes 0.7 thou/uL (1.20-3.40); #Monocytes 0.4 thou/uL (0.11-0.59); #Neutrophils 2.1 thou/uL (1.40-6.50); %Basophils 1.6 % (0.0-1.0); %Eosinophils 0.6 % (0.0-10.0); %Lymphocytes 21.7 % (21.0-51.0); %Monocytes 11.9 % (0.0-10.0); %Neutrophils 64.3 % (42.0-75.0); Hemoglobin 10.8 g/dL (12.0-16.0); Mean Corpuscular HGB CONC 34.2 g/dL (32.0-36.0); Mean Corpuscular Hemoglobin 31.5 pg (27.0-31.0); Mean Corpuscular Volume 92.3 fL (78.0-98.0); Mean Platelet Volume 6.9 fL (7.4-10.4); Platelet Count 156 thou/uL (130-400); RBC Distribution Width 12.3 % (11.5-14.5); Red Blood Cell (RBC) Count 3.42 mill/uL (4.20-5.40); White Blood Cell (WBC) Count 3.3 thou/uL (4.8-10.8)
[2019-02-25 07:04] LABS: Anion Gap 13 mmol/L (10-20); BUN (Urea Nitrogen) 9 mg/dL (9.8-20.1); Calc. Creatinine Clearance 56 mL/min (70-130); Calcium 8.1 mg/dL (7.8-10.44); Carbon Dioxide 23 mmol/L (23-31); Chloride 104 mmol/L (98-107); Estimated GFR-MDRD 81; Glucose 77 mg/dL (80-115); Potassium 4.1 mmol/L (3.5-5.1); Sodium 136 mmol/L (136-145)
--- NOTE | 2019-02-25 07:41 | OP ---
DATE OF PROCEDURE: 02/24/2019 PREOPERATIVE DIAGNOSES: 1. History of metastatic colon cancer. 2. Pelvic previous anastomosis obstruction. POSTOPERATIVE DIAGNOSES: 1. History of metastatic colon cancer. 2. Pelvic previous anastomosis obstruction. 3. Abdominal carcinomatosis. PROCEDURES: Exploratory laparotomy, diverting loop ileostomies. ANESTHESIA: General. ESTIMATED BLOOD LOSS: Minimal. COMPLICATIONS: None. SPECIMENS: None. FINDINGS: The patient does have carcinomatosis. There was no bulky disease in the abdomen. There were small tumor deposits throughout the mesentery and on the peritoneum. Down in the area of previous anastomosis in the pelvis, there was more disease present. The intestine before this intestine to sigmoid colon anastomosis is very dilated proximally, but no other obstruction all the way to the ligament of Treitz. DESCRIPTION OF PROCEDURE: The patient was taken to the operating room and laid supine on the operating room table. After general anesthetic was obtained, a Parekh was placed and the abdomen was prepped and draped in a sterile fashion. Midline incision was made. Cautery was used to dissect down into the abdomen. The abdomen was entered carefully. There are minimal adhesions in the abdomen. The small bowel was run to the ligament of Treitz and then to the colon anastomosis. There was no twist. No obstruction in the intestine. There were tumor deposits throughout the mesentery. There are tumor deposits on the posterior peritoneum. There was recurrent bulky cancer in the pelvis near the anastomosis, likely the source of obstruction. The intestine proximal to this is dilated, ellipse of skin was taken out in the left lower quadrant and a cruciate incision was made in the fascia, 2 fingers were able to be put through this defect and the small intestine was brought out in a loop fashion. All instrument counts, needle counts, and lap counts are correct. Midline fascia was closed using #1 PDS from the top and the bottom, and tied in the middle. Subcutaneous tissues were irrigated and the skin was closed using 4-0 Monocryl and Dermabond. The loop ileostomy was held up using a red rubber catheter that is sewn to the skin beside the ostomy. The ostomy was matured in the usual fashion using 3-0 Vicryl suture and ostomy device was placed. The patient was sent to Recovery in stable condition. All instrument counts, needle counts, and lap counts are correct. Job ID: [id number]
--- NOTE | 2019-02-25 08:05 | PDOC.GSPN ---
Surgery Progress Note: Subj - Subjective Narrative: Pain controlled. Her nephrostomy tube needs to be changed out today. No nausea Surgery Progress Note: Obj - Vital signs Vital signs: Vital Signs - Most Recent Temp Pulse Resp BP Pulse Ox 97.8 F 78 16 98/57 L 97 02/25/19 07:56 02/25/19 07:56 02/25/19 07:56 02/25/19 07:56 02/25/19 07:56 - Physical Exam General: no distress Cardiovascular: regular rate and rhythm Respiratory: clear to auscultation Abdomen: soft, appropriately tender Wound: healing well, ostomy/colostomy (viable mucosa) Surgery Progress Note: Results - Labs Result Diagrams: 02/25/19 05:58 02/25/19 05:58 Lab results: Laboratory Results - last 24 hr 02/25/19 02/25/19 05:58 05:58 WBC 3.3 L RBC 3.42 L Hgb 10.8 L Hct 31.5 L MCV 92.3 MCH 31.5 H MCHC 34.2 RDW 12.3 Plt Count 156 MPV 6.9 L Neutrophils % 64.3 Lymphocytes % 21.7 Monocytes % 11.9 H Eosinophils % 0.6 Basophils % 1.6 H Neutrophils # 2.1 Lymphocytes # 0.7 L Monocytes # 0.4 Eosinophils # 0.0 Basophils # 0.1 Sodium 136 Potassium 4.1 Chloride 104 Carbon Dioxide 23 Anion Gap 13 BUN 9 L Creatinine 0.72 Estimated GFR (MDRD) 81 Glucose 77 L Calcium 8.1 Surgery Progress Note: A/P - Problem (1) Metastatic colon cancer in female Current Visit: No Code(s): C78.5 - SECONDARY MALIGNANT NEOPLASM OF LARGE INTESTINE AND RECTUM Status: Acute - Plan Plan: POD 1 diverting ileostomy for carcinomatosis -ostomy education -nephrostomy change out today -felix RODRIGUEZ -Omari covering for me this weekend
[2019-02-25] MEDS: Famotidine/PF 20 mg/2ml Vial SLOW IVP SCH ×2 (08:16→20:37)
[2019-02-25] MEDS: Famotidine 20 MG TAB PO SCH ×2 (08:16→20:37)
--- NOTE | 2019-02-25 09:35 | SPC ---
EXAM: SPC EXCHANGE NEPHROSTOMY CATH PROVIDED CLINICAL HISTORY: Malfunctioning right nephrostomy tube. The nephrostomy tube was inadvertently cut and is not function ing properly. Replacement was requested. COMPARISON: 02/18/2019 Fluoroscopy: Total fluoroscopy time is 0.3 minutes with total dose of 560 mGy square centimeter. TECHNIQUE: After informed consent was obtained, the patient was placed on the angiography table in the prone pos ition. The indwelling nephrostomy tube and surrounding area were meticulously prepped and draped in the usual sterile fashion. The nephrostomy tube was punctured with an 18-gauge needle and sterile con trast filled syringe was connected to the needle. A tube nephrostogram was performed. The nephrostomy tube was cut and exchanged over a 0.035 inch Bentson guidewire for a new 8 Nepali nep hrostomy tube. The cope loop portion of the nephrostomy tube was coiled within the renal pelvis. Contrast injection confirms placement within the renal pelvis. Catheter was placed to gravity drainage and secured in place with dry sterile dressing. The patient tolerated the procedure well and without immediate complication. IMPRESSION: Technically successful 8 Nepali percutaneous nephrostomy tube replacement.
[2019-02-25] MEDS ORDERED: HYDROcodone/Acetaminophen 7.5/325 mg Tablet PO PRN (14:34)
[2019-02-25] MEDS: Enoxaparin Sodium 40 MG/0.4 ML SYRINGE SC SCH (16:14)
--- NOTE | 2019-02-25 17:47 | PRG ---
DATE OF SERVICE: 02/25/2019 SUBJECTIVE: Ms. Pinon is doing well. She had a diverting ostomy yesterday for obstruction presumably related to carcinomatosis. She is tolerating diet. She has weaned off her pain medication [employer] pump. She is taking oral pain medicine when she needs it but so far has not needed any. She states she is feeling well and has no needs or desires and now she has started to diet. OBJECTIVE: VITAL SIGNS: Temperature is 97, pulse , blood pressure 91/56 to 99/59. ABDOMEN: Soft and nontender. Her ostomy in left lower quadrant is pink with some air in the bag and some stool in the bag. LABORATORY DATA: White count 3.3, hemoglobin 10.8, and platelet count 159. Electrolytes otherwise normal. ASSESSMENT: Metastatic colon cancer with recent colon obstruction secondary to peritoneal disease. Dr. Gamez's colonoscopy just showed constricted area of the colon with no overt tumor ingrowth. RECOMMENDATIONS: Postop care, we will defer to General Surgery. It seems she has no other acute GI issues at this time as she has a good wound healing. No signs of infection and good ostomy function. Hopefully, within next 24-48 hours, she will be able to go home. We would defer that to General Surgery. If I could be of any further assistance, please do not hesitate to contact me. I will be in the hospital this weekend. Job ID: [id number]
[2019-02-25] MEDS: Nicotine 14 MG PATCH TD SCH (20:36)
[2019-02-25] MEDS: HYDROcodone/Acetaminophen 7.5/325 mg Tablet PO PRN (22:29)
--- NOTE | 2019-02-26 06:46 | PDOC.FM ---
- Subjective Subjective: Ms. Pinon says the bed is very uncomfortable causing her back pain overnight. [place] did help. She has tolerated clear liquids well and desires to eat something more today. - Objective Vital Signs & Weight: Vital Signs (12 hours) Temp Pulse Resp BP BP Pulse Ox 02/26/19 05:53 97.7 F 68 18 113/64 99 02/26/19 00:28 97.6 F 68 16 101/61 99 02/25/19 19:30 97 02/25/19 19:27 97.2 F L 79 16 102/64 97 Weight Admit Weight 47.219 kg Weight 46.584 kg I&O: 02/24/19 02/25/19 02/26/19 06:59 06:59 06:59 Intake Total 2820 3850 2771 Output Total 650 2125 2450 Balance 2170 1725 321 Result Diagrams: 02/25/19 05:58 02/25/19 05:58 Phys Exam - Physical Examination Constitutional: NAD Respiratory: no wheezing, clear to auscultation bilateral Cardiovascular: RRR, no significant murmur Gastrointestinal: soft, no distention colostomy in place, incision healing well Musculoskeletal: no edema Neurological: moves all 4 limbs Psychiatric: normal affect Skin: normal turgor Dx/Plan (1) Small bowel obstruction Code(s): K56.609 - UNSP INTESTNL OBST, UNSP TO PARTIAL VERSUS COMPLETE OBST Status: Acute (2) History of nephrostomy Code(s): Z87.448 - PERSONAL HISTORY OF OTHER DISEASES OF URINARY SYSTEM Status : Acute (3) Metastatic colon cancer in female Code(s): C78.5 - SECONDARY MALIGNANT NEOPLASM OF LARGE INTESTINE AND RECTUM Status: Acute (4) Status post partial colectomy Code(s): Z90.49 - ACQUIRED ABSENCE OF OTHER SPECIFIED PARTS OF DIGESTIVE TRACT Status: Acute (5) Severe protein-calorie malnutrition Code(s): E43 - UNSPECIFIED SEVERE PROTEIN-CALORIE MALNUTRITION Status: Chronic (6) Tobacco abuse Code(s): Z72.0 - TOBACCO USE Status: Chronic - Plan Plan: SBO 2/2 sigmoid malignancy s/p diverting ileostomy POD #2 - CT ab/pelvis: high grade distal bowel obstruction at level of sigmoid colon with mass-like thickening - GI - flex sig showed obstructing sigmoid structure @ 22 cm - General surgery, Dr. Mendoza - vital signs stable - NG removed 4/, clear liquids, will continue to advance diet - BG ranged 60-70s, will continue to monitor but will likely improve with increased PO intake today Acute blood loss anemia - Hgb 12 on admission, -> 10.8 Hypovolemia, improved - continue NS @ 70 History of metastatic colon cancer s/p resection - Josiah is primary oncologist, patient currently receiving radiation to groin for met found recently on PET scan History of nephrostomy tube - replaced 02/[address] Scruggs, plan for replacement today Diet: NPO Ppx: Lovenox PCP: none Addendum - Attending - Attending Attestation Date/Time: 02/26/19 1011 I personally evaluated the patient and discussed the management with Dr. Medina I agree with the History, Examination, Assessment and Plan documented above with any addition or exceptions noted below. pod#2 s/p diverting colostomy- ostomy functioning well. No n/v and minimal pain. Diet advancement and dispo plan per surgery
[2019-02-26] MEDS: Famotidine/PF 20 mg/2ml Vial SLOW IVP SCH ×2 (07:56→20:30)
[2019-02-26] MEDS: Sodium Chloride 0.9% 1,000 ML IV SCH ×2 (07:57→21:54)
[2019-02-26] MEDS: Enoxaparin Sodium 40 MG/0.4 ML SYRINGE SC SCH (07:58)
[2019-02-26] MEDS: Famotidine 20 MG TAB PO SCH ×2 (07:59→20:27)
--- NOTE | 2019-02-26 10:19 | PRG ---
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 She is doing well. She is tolerating clear liquids. She is hungry. Her ostomy is working well. She had a nephrostomy tube that was dysfunctional and they replaced yesterday. OBJECTIVE: VITAL SIGNS: Her temperature is 97.9, pulse 68, blood pressure 122/72. GENERAL: She is awake, alert, very thin. ABDOMEN: Soft, nondistended. The incision is healing well. She has air in her ostomy bag. LABORATORY DATA: Her white count is 3, H and H 10 and 31, platelet count 156. Electrolytes are fine. Creatinine is 0.7. ASSESSMENT: Doing well. PLAN: Full liquid diet. Saline lock IV. Hopefully, home soon. Job ID: [id number]
[2019-02-26] MEDS: HYDROcodone/Acetaminophen 7.5/325 mg Tablet PO PRN (20:27)
[2019-02-26] MEDS: Nicotine 14 MG PATCH TD SCH (20:29)
--- NOTE | 2019-02-27 06:54 | PDOC.FM ---
- Subjective Subjective: Ms. Pinon is feeling better. Tolerated normal diet last night. Denies N/V. Pain well controlled. - Objective MAR Reviewed: Yes Vital Signs & Weight: Vital Signs (12 hours) Temp Pulse Resp BP Pulse Ox 02/26/19 20:17 97 02/26/19 19:17 97.8 F 65 18 125/75 97 Weight Admit Weight 47.219 kg Weight 45.858 kg I&O: 02/25/19 02/26/19 02/27/19 06:59 06:59 06:59 Intake Total 3850 2771 2640 Output Total 2125 2450 1750 Balance 1725 321 890 Result Diagrams: 02/25/19 05:58 02/25/19 05:58 Phys Exam - Physical Examination Constitutional: NAD Respiratory: no rhonchi, clear to auscultation bilateral Cardiovascular: RRR, no significant murmur Gastrointestinal: soft appropriately TTP, incision healing well, colostomy bag in place Musculoskeletal: no edema Neurological: non-focal Psychiatric: normal affect Skin: normal turgor Dx/Plan (1) Small bowel obstruction Code(s): K56.609 - UNSP INTESTNL OBST, UNSP TO PARTIAL VERSUS COMPLETE OBST Status: Acute (2) History of nephrostomy Code(s): Z87.448 - PERSONAL HISTORY OF OTHER DISEASES OF URINARY SYSTEM Status : Acute (3) Metastatic colon cancer in female Code(s): C78.5 - SECONDARY MALIGNANT NEOPLASM OF LARGE INTESTINE AND RECTUM Status: Acute (4) Status post partial colectomy Code(s): Z90.49 - ACQUIRED ABSENCE OF OTHER SPECIFIED PARTS OF DIGESTIVE TRACT Status: Acute (5) Severe protein-calorie malnutrition Code(s): E43 - UNSPECIFIED SEVERE PROTEIN-CALORIE MALNUTRITION Status: Chronic (6) Tobacco abuse Code(s): Z72.0 - TOBACCO USE Status: Chronic - Plan Plan: SBO 2/2 sigmoid malignancy s/p diverting ileostomy POD #3 - CT ab/pelvis: high grade distal bowel obstruction at level of sigmoid colon with mass-like thickening - GI - flex sig showed obstructing sigmoid structure @ 22 cm - General surgery, Dr. Mendoza - vital signs stable - NG removed 02/25, continue to advance diet Acute blood loss anemia - Hgb 12 on admission, -> 10.8 Hypovolemia, improved - IVF discontinued History of metastatic colon cancer s/p resection - Josiah is primary oncologist, patient currently receiving radiation to groin for met found recently on PET scan History of nephrostomy tube - replaced 02/[address] Scruggs, replaced again this hospitalization Diet: NPO Ppx: Lovenox PCP: none Dispo: discharge plan per surgery recommendations Addendum - Attending - Attending Attestation Date/Time: 02/27/19 7403 I personally evaluated the patient and discussed the management with Dr. Medina. I agree with the History, Examination, Assessment and Plan documented above with any addition or exceptions noted below. Tolerating regular diet without n/v/pain. Patient wanting to go home. Ok pending surgery recs.
[2019-02-27 07:07] VITALS: BP 100/61; TEMP 97.9
[2019-02-27] MEDS: Famotidine 20 MG TAB PO SCH (07:50)
[2019-02-27] MEDS: Enoxaparin Sodium 40 MG/0.4 ML SYRINGE SC SCH (07:50)
[2019-02-27] MEDS: Famotidine/PF 20 mg/2ml Vial SLOW IVP SCH (07:50)
--- NOTE | 2019-02-27 11:47 | PRG ---
DATE OF SERVICE: 02/27/2019 SUBJECTIVE: The patient is doing excellent. She is tolerating a regular diet. Her ostomy is working well. Her pain is controlled on p.o. medications. She is wanted to go home, but she has not had any ostomy teaching yet. OBJECTIVE: VITAL SIGNS: Temperature 97.9, pulse 80, blood pressure 100/61. GENERAL: She looks good. ABDOMEN: Soft and nondistended. The ostomy looks healthy. Wound healing well. ASSESSMENT: Status post diverting ileostomy. PLAN: Ostomy teaching. Then okay to discharge. Follow up with Dr. Mendoza in 1-2 weeks. Job ID: [id number]
== END 2019-02-27 17:16 | disposition home or self-care (01) | DRG 329 ==
LOC: ERS 09:21 → ERHOLD 13:01 → T4-B 18:46
PROVIDERS: ADMIT Family Medicine; ATTEND Family Medicine
PROC: 0DJD8ZZ Inspection of Lower Intestinal Tract, Via Natural or Artificial Opening Endoscopic (ICD-10-PCS; 2019-02-23)
PROC: 0D1B0Z4 Bypass Ileum to Cutaneous, Open Approach (ICD-10-PCS; principal; 2019-02-24)
PROC: 0T25X0Z Change Drainage Device in Kidney, External Approach (ICD-10-PCS; 2019-02-25)
DX: C78.6 Secondary malignant neoplasm of retroperitoneum and peritoneum (principal); E43 Unspecified severe protein-calorie malnutrition; C78.5 Secondary malignant neoplasm of large intestine and rectum; C18.9 Malignant neoplasm of colon, unspecified; C78.7 Secondary malignant neoplasm of liver and intrahepatic bile duct; C78.00 Secondary malignant neoplasm of unspecified lung; C79.89 Secondary malignant neoplasm of other specified sites; Z68.1 Body mass index [BMI] 19.9 or less, adult; D62 Acute posthemorrhagic anemia; E86.1 Hypovolemia; Z46.6 Encounter for fitting and adjustment of urinary device; Z90.49 Acquired absence of other specified parts of digestive tract; F17.210 Nicotine dependence, cigarettes, uncomplicated; Z92.3 Personal history of irradiation
CPT/HCPCS: 36415; 50431; 50435; 74018; 74177; 75984; 80048; 80053; 81003; 85025; 96361; 96374; C1729; J0131; J0690; J0694; J1100; J1650; J2001; J2270; J2405; J2704; J3010; J3490; Q0163; Q9966; S0028

== ENCOUNTER 2019-04-18 07:13 | Day surgery (SDC) | payer MEDICARE ==
[2019-04-18 09:30] VITALS: BP 107/60; TEMP 98.8
--- NOTE | 2019-04-18 10:10 | SPC ---
NEPHROSTOMY TUBE EXCHANGE RIGHT SIDE: HISTORY: Patient with nephrostomy. Radiation Dosimetry: 1.5 minutes of fluoroscopy and DAP of 8.6 Gy/cm2. TECHNIQUE/FINDINGS: Informed consent was obtained. The right nephrostomy tube introduction site was p repped and draped in the usual sterile manner. The old nephrostomy tube was injected and visualization of the right collecting system performed. 0.35 Amplatz wire to gain access into the rig ht system. The old nephrostomy tube was removed. A new one was placed over the wire into the right collecting system. Position was confirmed using sterile iodinated contrast injected into the catheter . IMPRESSION: successful right nephrostomy tube exchange. Transcribed Date/Time: 04/18/2019 10:13 AM
[2019-04-18] MEDS ORDERED: Iopamidol 300 61% 30 ML VIAL ONE (11:11)
--- NOTE | 2019-04-20 16:23 | SPC ---
NEPHROSTOMY TUBE EXCHANGE RIGHT SIDE: HISTORY: Patient with nephrostomy. Radiation Dosimetry: 1.5 minutes of fluoroscopy and DAP of 8.6 Gy/cm2. TECHNIQUE/FINDINGS: Informed consent was obtained. The right nephrostomy tube introduction site was p repped and draped in the usual sterile manner. The old nephrostomy tube was injected and visualization of the right collecting system performed. 0.35 Amplatz wire to gain access into the rig ht system. The old nephrostomy tube was removed. A new one was placed over the wire into the right collecting system. Position was confirmed using sterile iodinated contrast injected into the catheter . IMPRESSION: successful right nephrostomy tube exchange. Transcribed Date/Time: 04/20/2019 4:23 PM
== END 2019-04-18 09:00 | disposition home or self-care (01) ==
LOC: SPEC 07:13
PROVIDERS: ATTEND Urology
PROC: 0T25X0Z Change Drainage Device in Kidney, External Approach (ICD-10-PCS; principal; 2019-04-18)
DX: N13.30 Unspecified hydronephrosis (principal); G25.81 Restless legs syndrome; F17.200 Nicotine dependence, unspecified, uncomplicated; D64.9 Anemia, unspecified; Z79.2 Long term (current) use of antibiotics
CPT/HCPCS: 50431; 50435; 75984; C1729; Q9967

== ENCOUNTER 2019-06-16 07:27 | Day surgery (SDC) | payer MEDICARE ==
[2019-06-16 08:25] VITALS: BP 111/70; TEMP 98.5; BMI 16.1
--- NOTE | 2019-06-16 14:15 | SPC ---
Fluoroscopic guided right PCN exchange. HISTORY: Distal right ureteral obstruction. FINDINGS: After explaining the procedure and answering all questions, the right flank and external po rtions of the right PCN were prepped and draped in usual sterile fashion. Small amount of contrast was injected through the indwelling catheter to opacify the dilated left renal collecting system and ureter. A 0.035 Bentson wire was passed into the distal portion of the indwelling catheter with some difficul ty. There was a grinding feeling of the wire as advanced into the distal catheter. The 0.035 Bentson wire was never advanced through the tip of the catheter. A 0.035 Glidewire was then used to c arefully extend through the tip of the 8 Azeri catheter. Some difficulty again encountered due to crystallization at the tip of the PCN. The 0.035 Glidewire was used to hold position. Old drain was removed and a new 8 Azeri skater lockin g loop PCN catheter was placed into the renal pelvis. Clear urine was drained. As per patient request, external suture was not placed. Fluoroscopy time 2 minutes. Patient tolerated the procedure well and was dismissed in good condition. IMPRESSION: Technically successful fluoroscopic guided right PCN catheter exchange. Some crystallization at the tip of the old drain, somewhat compromising luminal diameter. Consider mo re frequent exchange?
== END 2019-06-16 09:00 | disposition home or self-care (01) ==
LOC: SPEC 07:27
PROVIDERS: ATTEND Urology
PROC: 0T25X0Z Change Drainage Device in Kidney, External Approach (ICD-10-PCS; principal; 2019-06-16)
DX: N13.1 Hydronephrosis with ureteral stricture, not elsewhere classified (principal); G25.81 Restless legs syndrome; F17.210 Nicotine dependence, cigarettes, uncomplicated; Z85.038 Personal history of other malignant neoplasm of large intestine; Z85.43 Personal history of malignant neoplasm of ovary; Z79.899 Other long term (current) drug therapy; Z88.8 Allergy status to other drugs, medicaments and biological substances; Z90.49 Acquired absence of other specified parts of digestive tract
CPT/HCPCS: 50431; 50435; 75984; C1729; C1769

== ENCOUNTER 2019-08-03 23:43 | Emergency (ER) | payer MEDICARE | END 2019-08-04 01:04 | disposition home or self-care (01) | LOC: ERS 23:43 | DX: T82.898A Other specified complication of vascular prosthetic devices, implants and grafts, initial encounter (principal); Z71.6 Tobacco abuse counseling; F17.210 Nicotine dependence, cigarettes, uncomplicated | CPT/HCPCS: 36415; 80053; 82248; 83615; 84100; 84550; 99406 ==

== ENCOUNTER 2019-08-15 09:06 | Outpatient (CLI) | payer MEDICARE ==
--- NOTE | 2019-08-15 10:03 | CT ---
CT Abdomen Pelvis W Con HISTORY: Patient with malignant neoplasm of splenic flexure. Currently on chemotherapy. History of ri ght nephrostomy tube ileostomy partial colectomy and nephrectomy. COMPARISON: 02/21/2019 study. FINDINGS: There are some calcified granulomas in the lung bases and linear scarring. There is also ev idence for air trapping. There is a stable appearance to 2 right lobe liver lesions incompletely characterized on this film bu t showing what appears be some peripheral enhancement compatible with meningiomas. Stable as compared to the prior exam. The spleen and pancreas regions are unremarkable. The gallbladder has bee n removed. Right and left adrenal glands are normal in appearance the right and left kidneys are normal in size. A right-sided nephrostomy tube is again noted. No obstruction. No significant periaortic or mesenteric lymphadenopathy. There is a left-sided ostomy present. There are anastomotic suture lines associated with the distended sigmoid colon. On the previous examination there is enhancement and suggestion of wall thickening to the rectosigmoid colon is difficult to definitely appreciated on thi s examination but proximal to this area of the colon is distended with stool. There is no pelvic lymphadenopathy or mass. The soft tissue mass involving the anterior abdominal wall rectus musculatur e to the right of midline is slightly less prominent than on the prior study. Measurements are difficult to compare but the AP measurement has decreased slightly from 1.7 to 1.1 cm. IMPRESSION: 1. 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 2. Right-sided nephrostomy tube in place no obstruction. 3. Stents of postoperative change of the abdomen. The sigmoid colon is distended with stool there are some anastomotic suture lines present the wall thickening and enhancement to the rectosigmoid colon region is more difficult to appreciate on this exam. No pelvic lymphadenopathy is noted. 4. Very slight interval decrease in size of the lower abdominal wall soft tissue mass located slightl y to the right of midline within the rectus abdominis musculature.
[2019-08-15] MEDS ORDERED: ISOVUE-370 76%-LOCM 1 ML ONE (12:30)
== END 2019-08-15 09:07 | disposition home or self-care (01) ==
LOC: BICCT 09:06
PROVIDERS: ATTEND Internal Medicine Hematology & Oncology
DX: C18.5 Malignant neoplasm of splenic flexure (principal); K76.89 Other specified diseases of liver; K63.89 Other specified diseases of intestine; K59.00 Constipation, unspecified; R19.00 Intra-abdominal and pelvic swelling, mass and lump, unspecified site; Z98.890 Other specified postprocedural states
CPT/HCPCS: 74177; Q9966

== ENCOUNTER 2019-08-16 07:16 | Day surgery (SDC) | payer MEDICARE ==
[2019-08-16 08:13] VITALS: BP 121/89; TEMP 98.8; BMI 15.0
--- NOTE | 2019-08-16 09:04 | SPC ---
EXAM: SPC EXCHANGE NEPHROSTOMY CATH PROVIDED CLINICAL HISTORY: Malignant neoplasm splenic flexure. Patient currently on chemotherapy. Patient has right ureteral obs truction with right nephrostomy tube in place. Patient presents for nephrostomy tube exchange COMPARISON: 06/16/2019 TECHNIQUE: After informed consent was obtained, the patient was placed on the angiographic table in supine posit ion. The right nephrostomy tube and surrounding area were meticulously prepped and draped in usual sterile fashion. The catheter was punctured with a needle, and a right nephrostogram was performed. T he catheter was then cut and attempts at exchanging the catheter over a 0.035 inch Bentson guidewire were unsuccessful as the Bentson guidewire was unable to be advanced distal to the tip of t he nephrostomy tube. As a result, the catheter was then exchanged over a 0.035 inch glide wire which was able to be advanced distal to the tip of the nephrostomy tube. Distal portion of the nephro stomy tube was positioned in the renal pelvis. Contrast injection confirms placement in the renal pelvis. Catheter was placed to gravity drainage, and a dry sterile dressing was placed. Patient tolerated well without immediate complication. Patient requested that a suture not be placed to hold catheter in place. Fluoroscopy: Total fluoroscopy time-1.5 minutes Total dose-1807 mGy centimeter squared. IMPRESSION: Technically successful right nephrostomy tube replacement.
[2019-08-16] MEDS ORDERED: Prevnar 13-Val Conj/PF 0.5 ML SYRINGE IM ONE (09:45)
[2019-08-16] MEDS ORDERED: Iopamidol 300 61% 50 ML VIAL FS ONE (12:53)
== END 2019-08-16 09:00 | disposition home or self-care (01) ==
LOC: SPEC 07:16
PROVIDERS: ATTEND Urology
PROC: 0T25X0Z Change Drainage Device in Kidney, External Approach (ICD-10-PCS; principal; 2019-08-16)
DX: N13.0 Hydronephrosis with ureteropelvic junction obstruction (principal); C56.9 Malignant neoplasm of unspecified ovary; C78.5 Secondary malignant neoplasm of large intestine and rectum; F17.200 Nicotine dependence, unspecified, uncomplicated; G25.81 Restless legs syndrome; Z79.2 Long term (current) use of antibiotics; Z90.49 Acquired absence of other specified parts of digestive tract
CPT/HCPCS: 50436; C1729; Q9967

== ENCOUNTER 2019-10-17 07:18 | Day surgery (SDC) | payer MEDICARE ==
[2019-10-12 07:52] VITALS: BMI 19.3
--- NOTE | 2019-10-17 08:52 | SPC ---
EXAM: SPC EXCHANGE NEPHROSTOMY CATH PROVIDED CLINICAL HISTORY: Metastatic colon cancer and resultant right hydronephrosis with right nephrostomy tube in place. Exch birgit of the nephrostomy tube was requested. COMPARISON: 08/16/2019 FINDINGS: After informed consent was obtained, the patient was placed on the angiography table in the prone pos ition. The right nephrostomy tube and surrounding area were meticulously prepped and draped in usual sterile fashion. A right nephrostogram was performed. The catheter was cut and exchanged over a 0.035 inch Kyndedson guidewire for a new 8 Turkmen nephrostomy tube. Contrast injection confirms placement in the right renal pelvis. The catheter was flushed and placed to gravity drainage. A dry s terile dressing was placed. The patient tolerated the procedure well and without immediate complication. Fluoroscopy: Time: 0.3 minutes Total dose: 264 mGy centimeter squared IMPRESSION: Technically successful right nephrostomy tube replacement.
[2019-10-17] MEDS ORDERED: Iopamidol 300 61% 50 ML VIAL FS ONE (15:23)
== END 2019-10-17 08:45 | disposition home or self-care (01) ==
LOC: SPEC 07:18
PROVIDERS: ATTEND Urology
PROC: 0T25X0Z Change Drainage Device in Kidney, External Approach (ICD-10-PCS; principal; 2019-10-17)
DX: C78.5 Secondary malignant neoplasm of large intestine and rectum (principal); N13.1 Hydronephrosis with ureteral stricture, not elsewhere classified; C56.9 Malignant neoplasm of unspecified ovary; J44.9 Chronic obstructive pulmonary disease, unspecified; F41.9 Anxiety disorder, unspecified; F32.9 Major depressive disorder, single episode, unspecified; G25.81 Restless legs syndrome; Z79.2 Long term (current) use of antibiotics; Z79.899 Other long term (current) drug therapy; Z90.49 Acquired absence of other specified parts of digestive tract
CPT/HCPCS: 50431; 50436; 75984; Q9967

== ENCOUNTER 2019-11-18 08:32 | Outpatient (CLI) | payer MEDICARE ==
--- NOTE | 2019-11-18 10:17 | CT ---
CT ABDOMEN AND PELVIS WITH ORAL AND IV CONTRAST: HISTORY: Malignant neoplasm of splenic flexure. The patient is on chemotherapy. COMPARISON: 08/15/2019 and 02/21/2019 FINDINGS: Calcified granulomas in the lower lung elliott and spleen are again seen. The patient is post cholecys tectomy. The two right liver lobe hemangiomas are stable. The pancreas, adrenal glands and left kidne y are normal. A right sided nephrostomy tube is again seen without high-grade obstruction. No free air, free fluid or lymphadenopathy is noted in the abdomen or pelvis. Left sided ostomy is ag ain noted. There are vascular calcifications without evidence of aneurysmal dilatation of the abdomin al aorta. There are degenerative changes in the spine. No osteolytic or osteoblastic lesions are seen . The soft tissue mass involving the anterior abdominal wall and rectus musculature to the right of m idline is stable, measuring 1.1 cm in AP dimension. IMPRESSION: Stable examination since 08/15/2019. POS: WILLIAM
[2019-11-18] MEDS ORDERED: Iopamidol-370 76% 500 ML 1 ML ONE (15:35)
== END 2019-11-18 08:33 | disposition home or self-care (01) ==
LOC: BICCT 08:32
PROVIDERS: ATTEND Internal Medicine Hematology & Oncology
DX: C18.5 Malignant neoplasm of splenic flexure (principal)
CPT/HCPCS: 74177

== ENCOUNTER 2019-12-15 11:56 | Emergency (ER) | payer MEDICARE ==
[2019-12-15 13:17] LABS: #Basophils 0.1 thou/uL (0.0-0.2); #Eosinphils 0.1 thou/uL (0.0-0.7); #Lymphocytes 1.5 thou/uL (1.20-3.40); #Monocytes 0.6 thou/uL (0.11-0.59); #Neutrophils 1.9 thou/uL (1.40-6.50); %Basophils 1.4 % (0.0-1.0); %Lymphocytes 36.8 % (21.0-51.0); %Monocytes 13.3 % (0.0-10.0); %Neutrophils 46.5 % (42.0-75.0); Hemoglobin 12.7 g/dL (12.0-16.0); Mean Corpuscular HGB CONC 33.2 g/dL (32.0-36.0); Mean Corpuscular Hemoglobin 32.6 pg (27.0-31.0); Mean Corpuscular Volume 98.1 fL (78.0-98.0); Mean Platelet Volume 7.2 fL (7.4-10.4); Platelet Count 186 thou/uL (130-400); RBC Distribution Width 14.9 % (11.5-14.5); Red Blood Cell (RBC) Count 3.89 mill/uL (4.20-5.40); White Blood Cell (WBC) Count 4.1 thou/uL (4.8-10.8)
[2019-12-15 13:45] LABS: ALT (SGPT) 24 U/L (8-55); AST (SGOT) 23 U/L (5-34); Albumin 4.1 g/dL (3.4-4.8); Alkaline Phosphatase 190 U/L (40-110); Anion Gap 11 mmol/L (10-20); BUN (Urea Nitrogen) 17 mg/dL (9.8-20.1); Bilirubin, Total 0.6 mg/dL (0.2-1.2); CK (CPK) 26 U/L (29-168); Calc. Creatinine Clearance 0 mL/min (70-130); Calcium 9.7 mg/dL (7.8-10.44); Carbon Dioxide 28 mmol/L (23-31); Chloride 102 mmol/L (98-107); Estimated GFR-MDRD 61; Globulin 3.1 g/dL (2.4-3.5); Glucose 103 mg/dL (80-115); Potassium 4.4 mmol/L (3.5-5.1); Protein, Total 7.2 g/dL (6.0-8.3); Sodium 137 mmol/L (136-145)
--- NOTE | 2019-12-15 16:54 | RAD ---
EXAM: XR Abdomen 1 View/KUB PROVIDED CLINICAL HISTORY: Patient's right nephrostomy tube not functioning well. Patient has scheduled nephrostomy tube replace ment tomorrow. COMPARISON: 02/22/2019 FINDINGS: Lung bases not well seen on this exam. Calcified granulomata are seen at the right lung base. Surgica l clips overlie the right upper quadrant. Right nephrostomy tube overlies the expected location of the right renal shadow and is in similar loc ation to prior study. Postsurgical changes are seen in the pelvis. Radiopaque suture material is identified. Ostomy overlies the left lower quadrant. Bowel gas pattern is overall nonspecific. No oth er interval change. IMPRESSION: Postsurgical changes of the abdomen with left lower quadrant ostomy identified. Right nephrostomy tub e overlies right mid abdomen and in similar positioning of the nephrostomy tube noted on prior exam in 2019.
== END 2019-12-15 16:53 | disposition home or self-care (01) ==
LOC: ERS 11:56
DX: N99.522 Malfunction of incontinent external stoma of urinary tract (principal); F17.210 Nicotine dependence, cigarettes, uncomplicated
CPT/HCPCS: 36415; 74018; 80053; 82550; 85025

== ENCOUNTER 2019-12-16 07:56 | Day surgery (SDC) | payer MEDICARE ==
--- NOTE | 2019-12-16 11:31 | SPC ---
EXAM: SPC EXCHANGE NEPHROSTOMY CATH PROVIDED CLINICAL HISTORY: Nonfunctioning right nephrostomy tube. COMPARISON: 10/17/2019 Fluoroscopy: Time-1.4 minutes Dose-1083 mGy centimeter squared TECHNIQUE: After informed consent was obtained, the patient was placed on the angiography table in the prone pos ition. The right nephrostomy tube and surrounding area were meticulously prepped and draped in usual sterile fashion. A right nephrostogram was performed. The catheter was cut but was unable to be exchanged over a 0.035 inch Bentson guidewire due to obstruction in the distal most portion of the nephrostomy tube. As result, the catheter was removed, and a 5 U[place]ayan Berenstein catheter and 0.035 i nch Bentson guidewire were manipulated through the tract and into the right renal collecting system. The catheter was exchanged over the guidewire for a new 8 Uruguayan nephrostomy tube. The distal portion of the nephrostomy tube was positioned in the renal pelvis. Nephrostogram was performed demonstrating catheter in place in the renal pelvis. The catheter was placed to gravity drainage, and and a dry sterile dressing was placed. The patient t olerated the procedure well and without immediate complication. Patient was transported to radiology nurses holding area for further monitoring prior to discharge. IMPRESSION: Technically successful right nephrostomy tube replacement.
[2019-12-16 11:40] VITALS: BMI 19.3
[2019-12-16 11:45] VITALS: BP 102/70; TEMP 97.8
== END 2019-12-16 08:15 | disposition home or self-care (01) ==
LOC: SPEC 07:56
PROVIDERS: ATTEND Urology
PROC: 0T25X0Z Change Drainage Device in Kidney, External Approach (ICD-10-PCS; principal; 2019-12-16)
DX: T83.018A Breakdown (mechanical) of other urinary catheter, initial encounter (principal); N13.30 Unspecified hydronephrosis; F17.200 Nicotine dependence, unspecified, uncomplicated; G25.81 Restless legs syndrome; C56.9 Malignant neoplasm of unspecified ovary; C78.5 Secondary malignant neoplasm of large intestine and rectum; Z90.49 Acquired absence of other specified parts of digestive tract
CPT/HCPCS: 50431; 50436; 75984; C1729

== ENCOUNTER 2020-02-14 07:26 | Day surgery (SDC) | payer MEDICARE ==
[2020-02-13 10:38] VITALS: BMI 17.9
[~2020-02-14 07:26] MED LIST changes: +FLU VACC TS2019-20(65YR UP)/PF 180 MCG/0.5 ML SYRINGE IM ONE
[2020-02-14 08:01] VITALS: BP 123/71; TEMP 98.5
--- NOTE | 2020-02-14 12:15 | SPC ---
EXAM: SPC EXCHANGE NEPHROSTOMY CATH PROVIDED CLINICAL HISTORY: Right hydronephrosis secondary to metastatic colon cancer COMPARISON: 12/16/2019 Fluoroscopy: Time-1.2 minutes Dose-1668 mGy centimeter squared TECHNIQUE: After informed consent was obtained, the patient was placed on the angiographic table in the prone po sition. The right nephrostomy tube and surrounding area were meticulously prepped and draped in usual sterile fashion. A right nephrostogram was performed. The catheter was cut and exchanged over a 0.035 inch [employer] guidewire for a new 8 Bengali nephrostomy tube. Contrast injection confirms placement of the distal portion of the catheter in the renal pelvis. Catheter was placed to gravity d rainage, and a dry sterile dressing was placed. The patient tolerated the procedure well and without immediate complication. IMPRESSION: Technically successful right nephrostomy tube replacement.
== END 2020-02-14 09:30 | disposition home or self-care (01) ==
LOC: SPEC 07:26
PROVIDERS: ATTEND Urology
PROC: 0T25X0Z Change Drainage Device in Kidney, External Approach (ICD-10-PCS; principal; 2020-02-14)
DX: C79.9 Secondary malignant neoplasm of unspecified site (principal); N13.39 Other hydronephrosis; C18.9 Malignant neoplasm of colon, unspecified; Z79.899 Other long term (current) drug therapy
CPT/HCPCS: 50431; 50436

== ENCOUNTER 2020-03-08 08:42 | Outpatient (CLI) | payer MEDICARE ==
--- NOTE | 2020-03-08 10:03 | CT ---
ABDOMEN AND PELVIC CT SCAN WITH IV CONTRAST: HISTORY: Splenic flexure cancer. COMPARISON: 11/18/2019. FINDINGS: Stable lower lung calcified granulomas, prior postop cholecystectomy, stable right lobe of liver niles ngiomas, and stable right-sided nephrostomy tube without evidence for obstruction. Mid left anterior abdominal ostomy. Stable focal thickness in the region of the inferior right anterior abdominal wal l and rectus muscle. Stable focal dilatation of several small bowel loops with associated postoperat shraddha anastomotic changes. Several unopacified loops of bowel in the right lower quadrant with what ap pears to be some associated scarring, stable. IMPRESSION: Stable CT examination of the abdomen and pelvis. No evidence for a new metastatic process. POS: RRE
== END 2020-03-08 08:43 | disposition home or self-care (01) ==
LOC: BICCT 08:42
PROVIDERS: ATTEND Internal Medicine Hematology & Oncology
DX: C18.5 Malignant neoplasm of splenic flexure (principal); R11.2 Nausea with vomiting, unspecified
CPT/HCPCS: 74177

== ENCOUNTER 2020-04-18 07:46 | Day surgery (SDC) | payer MEDICARE ==
[2020-04-17 12:32] VITALS: BMI 18.8
[2020-04-18 08:21] VITALS: BP 135/94; TEMP 98.2
[2020-04-18] MEDS ORDERED: Prevnar 13-Val Conj/PF 0.5 ML SYRINGE IM ONE (09:00)
--- NOTE | 2020-04-18 11:47 | SPC ---
EXAM: SPC EXCHANGE NEPHROSTOMY CATH PROVIDED CLINICAL HISTORY: Replacement of right nephrostomy tube. History of colon cancer and right ureteral obstruction. COMPARISON: 02/14/2020 TECHNIQUE: After informed consent was obtained, the patient was placed on the angiography table in the prone pos ition. The right nephrostomy tube and surrounding area were meticulously prepped and draped in usual sterile fashion. The catheter was punctured with an 18-gauge needle, and a nephrostogram was pe rformed. The catheter was then cut and exchanged over a 0.035 inch [employer] guidewire for a new 8 Indonesian nephrostomy tube. Nephrostogram was performed demonstrating the distal portion of the catheter within the renal pelvis. The catheter was placed to gravity drainage, and a dry sterile dressing was placed. The patient tolerated the procedure well and without immediate complication. Fluoroscopy: Time-0.7 minutes Dose-320 mGy centimeter squared IMPRESSION: Technically successful 8 Indonesian right nephrostomy tube replacement.
[2020-04-18] MEDS ORDERED: Iopamidol 300 61% 50 ML VIAL FS ONE (11:55)
== END 2020-04-18 08:45 | disposition home or self-care (01) ==
LOC: SPEC 07:46
PROVIDERS: ATTEND Urology
PROC: 0T25X0Z Change Drainage Device in Kidney, External Approach (ICD-10-PCS; principal; 2020-04-18)
DX: N13.2 Hydronephrosis with renal and ureteral calculous obstruction (principal); C18.9 Malignant neoplasm of colon, unspecified; C79.60 Secondary malignant neoplasm of unspecified ovary; F17.200 Nicotine dependence, unspecified, uncomplicated; Z79.899 Other long term (current) drug therapy; Z88.8 Allergy status to other drugs, medicaments and biological substances
CPT/HCPCS: 50431; 50436; 75984; C1729; Q9967

== ENCOUNTER 2020-06-14 09:08 | Outpatient (CLI) | payer MEDICARE ==
--- NOTE | 2020-06-14 09:48 | CT ---
CT Abdomen Pelvis W Con: 06/14/2020 12:00 AM CLINICAL INFORMATION: History of malignant neoplasm of the colon. COMPARISON: 03/08/2020, 08/15/2019 TECHNIQUE: Multiple contiguous axial images were obtained and a CT of the abdomen and pelvis with IV contrast. Oral contrast was administered. Coronal and sagittal reformats were performed. FINDINGS: Lower Chest: Multiple calcified granulomas in the lung bases. Abdomen: Liver: There is stable heterogeneously enhancing masses in the right lower liver measuring up to 1.9 cm in size. Bile Ducts: Normal caliber. Gallbladder: Removed Pancreas: within normal limits. Spleen: within normal limits. Adrenals: within normal limits. Kidneys: There is a right percutaneous nephrostomy tube with its tip in the right renal pelvis. No ri ght hydronephrosis. There is mild left hydronephrosis without significant delay in the left nephrogram. Pelvis: Reproductive Organs: No pelvic masses. Ureters: Left hydroureter down to the level of the pelvis. Bladder: within normal limits. Peritoneum: No ascites or free air, no fluid collection. Bowel: Normal caliber. The patient has had a an ostomy placed in the left abdomen. There is an anasto motic staple line in the rectum. Mesentery and Retroperitoneum: No enlarged mesenteric or retroperitoneal lymph nodes. Vessels: Atherosclerotic calcifications. Abdominal Wall: There is stable thickening of the right lower rectus abdominis muscle with calcificat ions associated with this thickening. Bones: Degenerative changes in the spine. IMPRESSION: 1. Interval development of left-sided hydronephrosis without significant delay in the left nephrogram 2. Stable percutaneous gastrostomy tube 3. Stable postsurgical changes in the colon and ostomy 4. Stable hepatic hypodense masses may represent hemangiomas or treated metastases. 5. Stable thickening of the rectus abdominis muscle on the right with associated calcifications.
== END 2020-06-14 09:09 | disposition home or self-care (01) ==
LOC: BICCT 09:08
PROVIDERS: ATTEND Internal Medicine Hematology & Oncology
DX: C18.5 Malignant neoplasm of splenic flexure (principal); N13.30 Unspecified hydronephrosis; R16.0 Hepatomegaly, not elsewhere classified; Z93.3 Colostomy status
CPT/HCPCS: 74177

== ENCOUNTER 2020-07-24 07:27 | Day surgery (SDC) | payer MEDICARE ==
[2020-05-24 11:19] VITALS: BMI 19.3
--- NOTE | 2020-07-24 08:49 | SPC ---
Fluoroscopic guided right percutaneous nephrostomy exchange HISTORY: Ureteral obstruction. Fluoroscopy time 1.1 minute. FINDINGS: After explaining the procedure and answering all questions, the external portion of the rig ht percutaneous nephrostomy catheter was prepped and draped in usual sterile fashion. A small amount of contrast was injected to show good position of the old catheter. The urine draining from th e old catheter was dark yellow and cloudy. Catheter was ligated. Prominent 3 5 Bentson wire was unable to be passed through the old catheter, du e to buildup of internal crystals. A 0.035 Glidewire was carefully manipulated through the end of the catheter to hold position while a new 8 Nepali locking loop catheter was carefully placed over th e wire, with good position shown fluoroscopically. Locking loop was formed in the mildly distended renal pelvis. Catheter was dressed externally with sterile gauze, per patient request. Patient tolera salvatore the procedure well and was dismissed in good condition. IMPRESSION : Technically successful exchange right percutaneous nephrostomy catheter. There was significant buildu p of crystallization within the catheter, so that a 0.035 Bentson wire was unable to be passed. More frequent exchange of the catheter may be necessary given the increasing buildup of internal debr is within the catheter.
[2020-07-24 09:05] VITALS: BP 112/74; TEMP 98.8
[2020-07-24] MEDS ORDERED: Iopamidol 300 61% 50 ML VIAL FS ONE (13:15)
== END 2020-07-24 08:45 | disposition home or self-care (01) ==
LOC: SPEC 07:27
PROVIDERS: ATTEND Urology
PROC: 0T25X0Z Change Drainage Device in Kidney, External Approach (ICD-10-PCS; principal; 2020-07-24)
DX: N13.30 Unspecified hydronephrosis (principal); F17.200 Nicotine dependence, unspecified, uncomplicated; D64.9 Anemia, unspecified; G25.81 Restless legs syndrome; Z79.899 Other long term (current) drug therapy; Z85.038 Personal history of other malignant neoplasm of large intestine; Z85.43 Personal history of malignant neoplasm of ovary
CPT/HCPCS: 50431; 50436; 75984; C1729; Q9967

== ENCOUNTER 2020-09-18 07:24 | Day surgery (SDC) | payer MEDICARE ==
[2020-09-18 08:43] VITALS: BMI 15.7
[2020-09-18 08:53] VITALS: BP 126/80; TEMP 98.2
--- NOTE | 2020-09-18 09:16 | SPC ---
FLUOROSCOPIC GUIDED RIGHT PERCUTANEOUS NEPHROSTOMY TUBE EXCHANGE: HISTORY: Hydronephrosis and ureteral obstruction. FLUOROSCOPIC TIME: 1.6 minutes. TIME OF PROCEDURE: 10 minutes. TECHNIQUE: Informed consent was obtained from the patient. The patient was placed prone on the fluoro scopic table. The site was prepped and draped in the usual sterile fashion. Small amount of contrast was administered into the currently placed right-sided nephrostomy catheter demonstrating go od positioning of the catheter within the renal pelvis. The pigtail was undone and an 035 Amplatz catheter was passed into the catheter and the old catheter was manipulated out of the renal collectin g system. A guidewire was maintained within the renal collecting system. Following this, a new 8 [place] locking loop catheter was guided over the wire and into the right renal collecting system. The locking loop was formed. Antegrade contrast administration demonstrated positioning of the catheter within the renal pelvis with good drainage. Patient tolerated procedure without difficulty. IMPRESSION: Technically successful exchange of the right-sided percutaneous nephrostomy catheter. Transcribed Date/Time: 09/18/2020 11:15 AM
== END 2020-09-18 08:25 | disposition home or self-care (01) ==
LOC: SPEC 07:24
PROVIDERS: ATTEND Urology
PROC: 0T25X0Z Change Drainage Device in Kidney, External Approach (ICD-10-PCS; principal; 2020-09-18)
DX: N13.1 Hydronephrosis with ureteral stricture, not elsewhere classified (principal); C56.9 Malignant neoplasm of unspecified ovary; C78.5 Secondary malignant neoplasm of large intestine and rectum; F17.200 Nicotine dependence, unspecified, uncomplicated; G25.81 Restless legs syndrome; Z79.2 Long term (current) use of antibiotics; Z79.899 Other long term (current) drug therapy; Z90.49 Acquired absence of other specified parts of digestive tract
CPT/HCPCS: 50431; 50436; 75984; C1729

== ENCOUNTER 2020-09-20 08:42 | Outpatient (CLI) | payer MEDICARE ==
--- NOTE | 2020-09-20 10:00 | CT ---
CT of the abdomen and pelvis: 09/20/2020 COMPARISON: 06/14/2020, 03/08/2020, 11/18/2019 HISTORY: Colon cancer, malignant neoplasm of the sigmoid colon, history of right nephrostomy tube, il eostomy, and partial colon resection TECHNIQUE: Axial CT imaging obtained at 5 mm intervals from the lung bases through the pubic symphysi s with intravenous and oral contrast. Coronal and sagittal reformatted imaging obtained. FINDINGS: The imaged lung bases demonstrate calcified granulomata. No free intraperitoneal air is see n. There are 2 lesions within the right lobe of the liver. This includes a posterior right 1.8 cm lesion , which does not appear significantly changed when compared to the 03/08/2020 and 06/14/2020 examination. There is a lateral inferior hypodense hepatic lesion measuring 1.2 cm in AP dimension, w hich appears unchanged when compared to prior studies as well. No new hepatic lesion. The intra and extrahepatic portal vein is patent. Cholecystectomy clips are present. The spleen, pancreas, and adre nal glands appear grossly unremarkable. There is a stable nephrostomy tube on the right. Right kidney demonstrates a stable appearance. There is thickening and enhancement of the urothelium on the right, nonspecific and stable. There is a soft tissue mass associated with the distal right ureter on axial image 53 measuring 1.3 cm, similar when compared to the 06/14/2020 examination and less conspicuous than on the 03/08/2020 and 11/18 studies. In addition, on axial image 56 there is ill-defined soft tissue density best seen on axial image 56 and coronal image 25 adjacent to the distal colon which could signify tumor associated with the colon or the colonic wall in this region. Of note, this appearance is not significantly changed when compared to studies dating back to 11/18/2019. There is prominent left-sided hydronephrosis and left-sided hydroureter which is similar when compare d to the 06/14/2020 examination and new when compared to 03/08/2020 and 11/18/2019. There is an abrupt transition from distended to decompressed left ureter in the inferior posterior left hemipelvis. Bowel suture material is seen in the pelvis demonstrating a stable configuration when compared to anatoliy or imaging There is no evidence for bowel obstruction. There is a left lower quadrant colostomy. Ingested contra st media seen within the colostomy bag as well as extending to the level the patient's rectum. No lymphadenopathy is evident within the retroperitoneum or the pelvis. No acute osseous abnormality is noted. No worrisome lytic or blastic bone lesions are seen. There is mild masslike enlargement of the inferi or anterior aspect of the rectus abdominis muscle on the right with internal calcification which includes a small soft tissue mass abutting the ventral aspect of the rectus abdominis muscle, in tota l measuring 1.5 cm in AP dimension, not significantly changed since the 11/18/2019 exam. IMPRESSION: Stable right hepatic lesions. Soft tissue density in the right hemipelvis as seen on prio r imaging consistent with the patient's history of malignancy in this region, not significantly changed since 12/16/2019. Hydronephrosis and hydroureter on the left kidney into the lower left pelvis, etiology uncertain. Thi s could be on the basis of benign or malignant stricture. Stable lesion of the lower right rectus abdominis muscle. Case discussed with Dr. Mercado at 9:55 AM 09/20/2020
== END 2020-09-20 08:43 | disposition home or self-care (01) ==
LOC: BICCT 08:42
PROVIDERS: ATTEND Internal Medicine Hematology & Oncology
DX: C18.5 Malignant neoplasm of splenic flexure (principal); K76.9 Liver disease, unspecified; N13.30 Unspecified hydronephrosis; N13.4 Hydroureter; M79.89 Other specified soft tissue disorders; M62.89 Other specified disorders of muscle
CPT/HCPCS: 74177

== ENCOUNTER 2020-10-24 08:40 | Outpatient (CLI) | payer MEDICARE ==
--- NOTE | 2020-10-24 18:51 | NM ---
DIURETIC RADIONUCLIDE RENOGRAM: 10/24/20 HISTORY: Unspecified hydronephrosis. Colon cancer. RADIOPHARMACEUTICAL: 7.5 millicuries of technetium 99m-MAG3 given intravenously. DIURETIC: 20 mg IV Lasix injected 15 minutes prior to the radiopharmaceutical. The patient has a Parekh catheter in place during imaging and a right sided nephrostomy tube. There is decreased flow and uptake by the left kidney compared to the right. The differential functio n measures 69% on the left and 31% on the right. The right renogram curve has a lower peak compared t o the left. Both right and left renogram curves are downsloping. There is tracer excretion into the l eft ureter and the urinary bladder. No tracer is seen within the right ureter. IMPRESSION: No evidence of high grade obstruction. POS: OFF
== END 2020-10-24 08:41 | disposition home or self-care (01) ==
LOC: NM 08:40
PROVIDERS: ATTEND Urology
DX: N13.30 Unspecified hydronephrosis (principal)
CPT/HCPCS: 78708; A4641; A9562

== ENCOUNTER 2020-11-20 07:22 | Day surgery (SDC) | payer MEDICARE ==
--- NOTE | 2020-11-20 08:49 | SPC ---
Right nephrostomy exchange fluoroscopic guided HISTORY: Ureteral obstruction. FINDINGS: After explaining the procedure and answering all questions, the right flank and external po rtions of the right PCN were carefully prepped and draped in usual sterile fashion. Small amount of contrast injected to show position. Tubing was ligated. Initially, a 0.035 Bentson wire would not pass through the distal coil of the cat heter due to internal debris impaction. A 0.035 Glidewire was then passed through the tip of the catheter to hold position. Catheter was anjelica shawn and exchanged for a new 8 [place] locking loop nephrostomy catheter. Coil formed at the renal pelvis. Catheter was flushed and left draining to gravity. Patient tolerated the procedure well and was dismissed in good condition. IMPRESSION : Technically successful right PCN exchange. New 8 [place] locking loop PCN.
[2020-11-20 09:28] VITALS: BP 113/76; TEMP 98.2
== END 2020-11-20 08:40 | disposition home or self-care (01) ==
LOC: SPEC 07:22
PROVIDERS: ATTEND Urology
PROC: 0T25X0Z Change Drainage Device in Kidney, External Approach (ICD-10-PCS; principal; 2020-11-20)
DX: N13.1 Hydronephrosis with ureteral stricture, not elsewhere classified (principal); F17.200 Nicotine dependence, unspecified, uncomplicated; G25.81 Restless legs syndrome
CPT/HCPCS: 50431; 50436; 75984; C1729

== ENCOUNTER 2020-12-05 14:07 | Outpatient (CLI) | payer MEDICARE ==
--- NOTE | 2020-12-05 14:40 | ULT ---
Exam: Bilateral renal ultrasound HISTORY: History of hydronephrosis. Patient currently has a right nephrostomy tube in place. COMPARISON: 06/04/2016 Correlation: Nephrostomy tube exchange 11/20/2020, abdomen and pelvic CT 09/20/2020 FINDINGS: Right kidney: There is right renal cortical thinning. No hydronephrosis. Right kidney measurements: 3.4 x 8.3 x 3.9 cm. Left kidney: There is left renal cortical thinning. There is left calyceal dilatation without pelvic dilatation. There do appear to be left parapelvic cysts. Left kidney measurements 4.4 x 8.8 x 4.2 cm cm. Urinary bladder: Cannot be assessed due to overlying bandage material IMPRESSION: 1. Mild left calyceal dilatation without pelvic dilatation. 2. No evidence of right-sided hydronephrosis.
== END 2020-12-05 14:08 | disposition home or self-care (01) ==
LOC: BICULT 14:07
PROVIDERS: ATTEND Urology
DX: N13.30 Unspecified hydronephrosis (principal)
CPT/HCPCS: 76770

== ENCOUNTER 2021-01-08 07:38 | Day surgery (SDC) | payer MEDICARE ==
[2021-01-07 12:17] VITALS: BMI 19.3
[2021-01-08 09:03] VITALS: BP 130/77; TEMP 97.8
--- NOTE | 2021-01-08 09:07 | SPC ---
PROCEDURE: SPC INJ PROC NEPH /URET EXIST PROVIDED CLINICAL HISTORY: Right ureteral obstruction secondary to colon cancer. Nephrostomy tube exchange requested. TECHNIQUE: After informed consent was obtained, patient was placed on the angiography table in the prone positio n. Right percutaneous nephrostomy tube and surrounding area were meticulously prepped and draped in usual sterile fashion. The tube was cut. Attempts at exchanging the catheter over a 0.035 inch Bentso n guidewire were unsuccessful due to encrustation at the tip of the nephrostomy tube. As result, the tube was removed, and a 0.035 inch Bentson guidewire and 5 [place] Berenstein catheter were manipu lated into the renal collecting system. Catheter was exchanged over the guidewire for a new 8 [place] percutaneous nephrostomy tube. Distal portion of the tube was placed within the renal pelvis. Contrast injection confirms placement. Catheter was flushed and placed to gravity drainage. Dry sterile dressing was placed. Patient tolerated the procedure well and without immediate complication IMPRESSION: Technically successful 8 [place] right percutaneous nephrostomy tube replacement.
[2021-01-08] MEDS ORDERED: Iopamidol 300 61% 50 ML VIAL FS ONE (10:44)
== END 2021-01-08 08:35 | disposition home or self-care (01) ==
LOC: SPEC 07:38
PROVIDERS: ATTEND Urology
PROC: 0T25X0Z Change Drainage Device in Kidney, External Approach (ICD-10-PCS; principal; 2021-01-08)
DX: C56.9 Malignant neoplasm of unspecified ovary (principal); C78.5 Secondary malignant neoplasm of large intestine and rectum; N13.1 Hydronephrosis with ureteral stricture, not elsewhere classified; D64.9 Anemia, unspecified; F17.200 Nicotine dependence, unspecified, uncomplicated; G25.81 Restless legs syndrome; Z79.899 Other long term (current) drug therapy; Z90.49 Acquired absence of other specified parts of digestive tract
CPT/HCPCS: 50431; 50436; 75984; C1729; Q9967

== ENCOUNTER 2021-01-18 09:40 | Outpatient (CLI) | payer MEDICARE ==
[2021-01-18] MEDS ORDERED: Iopamidol-370 76% 500 ML 1 ML ONE (11:51)
== END 2021-01-18 09:41 | disposition home or self-care (01) ==
LOC: BICCT 09:40
PROVIDERS: ATTEND Internal Medicine Hematology & Oncology
DX: C18.5 Malignant neoplasm of splenic flexure (principal); R11.2 Nausea with vomiting, unspecified; N28.82 Megaloureter; N28.89 Other specified disorders of kidney and ureter; Z93.6 Other artificial openings of urinary tract status; Z93.3 Colostomy status
CPT/HCPCS: 74177; Q9967

== ENCOUNTER 2021-03-28 07:37 | Day surgery (SDC) | payer MEDICARE ==
[2021-03-25 11:41] VITALS: BMI 19.3
[2021-03-28 09:01] VITALS: BP 98/66; TEMP 98.8
[2021-03-28] MEDS ORDERED: Iopamidol 300 61% 50 ML VIAL FS ONE (15:14)
== END 2021-03-28 08:50 | disposition home or self-care (01) ==
LOC: SPEC 07:37
PROVIDERS: ATTEND Urology
PROC: 0T25X0Z Change Drainage Device in Kidney, External Approach (ICD-10-PCS; principal; 2021-03-28)
DX: N13.1 Hydronephrosis with ureteral stricture, not elsewhere classified (principal); C18.9 Malignant neoplasm of colon, unspecified; F17.200 Nicotine dependence, unspecified, uncomplicated; G25.81 Restless legs syndrome; Z79.899 Other long term (current) drug therapy
CPT/HCPCS: 50436; 75984; C1729; 50431; Q9967

== ENCOUNTER 2021-05-09 07:31 | Day surgery (SDC) | payer MEDICARE ==
[2021-05-03 13:13] VITALS: BMI 15.3
[2021-05-09 09:57] VITALS: BP 171/84; TEMP 99.3
== END 2021-05-09 08:50 | disposition home or self-care (01) ==
LOC: SPEC 07:31
PROVIDERS: ATTEND Urology
PROC: 0T25X0Z Change Drainage Device in Kidney, External Approach (ICD-10-PCS; principal; 2021-05-09)
DX: C56.9 Malignant neoplasm of unspecified ovary (principal); C78.5 Secondary malignant neoplasm of large intestine and rectum; N13.1 Hydronephrosis with ureteral stricture, not elsewhere classified; F17.200 Nicotine dependence, unspecified, uncomplicated; G25.81 Restless legs syndrome; Z79.2 Long term (current) use of antibiotics; Z79.899 Other long term (current) drug therapy; Z93.2 Ileostomy status
CPT/HCPCS: 50431; 50436; 75984; C1729

== ENCOUNTER → 2021-06-20 | Day surgery (SDC) | payer MEDICARE ==
[2021-06-18 13:00] VITALS: BMI 14.9
[~2021-06-20] MED LIST changes: -FLU VACC TS2019-20(65YR UP)/PF 180 MCG/0.5 ML SYRINGE IM ONE; +Iopamidol 300 61% 50 ML VIAL FS ONE; -Prevnar 13-Val Conj/PF 0.5 ML SYRINGE IM ONE
== END ==
LOC: SPEC 07:38
PROVIDERS: ATTEND Urology
PROC: 0T9030Z Drainage of Right Kidney with Drainage Device, Percutaneous Approach (ICD-10-PCS; principal; 2021-06-20)
DX: C18.9 Malignant neoplasm of colon, unspecified (principal); C79.9 Secondary malignant neoplasm of unspecified site; N13.5 Crossing vessel and stricture of ureter without hydronephrosis; J44.9 Chronic obstructive pulmonary disease, unspecified; G25.81 Restless legs syndrome; D63.0 Anemia in neoplastic disease; Z79.899 Other long term (current) drug therapy
CPT/HCPCS: 50431; 50436; Q9967

== ENCOUNTER 2021-07-24 08:51 | Emergency (ER) | payer MEDICARE ==
[2021-07-24] MEDS ORDERED: Ondansetron PF 4 MG/2 ML Vial ONE (11:06)
[2021-07-24] MEDS ORDERED: Morphine 4 MG/ML VIAL ONE (11:06)
[2021-07-24 11:10] LABS: #Eosinphils 0.1 thou/uL (0.0-0.7); #Lymphocytes 1.5 thou/uL (1.20-3.40); #Monocytes 0.6 thou/uL (0.11-0.59); #Neutrophils 7.8 thou/uL (1.40-6.50); %Basophils 0.4 % (0.0-1.0); %Eosinophils 1.1 % (0.0-10.0); %Lymphocytes 14.6 % (21.0-51.0); %Monocytes 5.6 % (0.0-10.0); %Neutrophils 78.3 % (42.0-75.0); Hemoglobin 13.3 g/dL (12.0-16.0); Mean Corpuscular HGB CONC 33.2 g/dL (32.0-36.0); Mean Corpuscular Hemoglobin 31.7 pg (27.0-31.0); Mean Corpuscular Volume 95.5 fL (78.0-98.0); Mean Platelet Volume 6.3 fL (7.4-10.4); Platelet Count 285 thou/uL (130-400); Red Blood Cell (RBC) Count 4.21 mill/uL (4.20-5.40)
[2021-07-24 11:28] LABS: ALT (SGPT) 11 U/L (8-55); AST (SGOT) 14 U/L (5-34); Alkaline Phosphatase 160 U/L (40-110); Anion Gap 13 mmol/L (10-20); BUN (Urea Nitrogen) 15 mg/dL (9.8-20.1); Bilirubin, Total 0.3 mg/dL (0.2-1.2); Calc. Creatinine Clearance 0 mL/min (70-130); Calcium 9.9 mg/dL (7.8-10.44); Carbon Dioxide 22 mmol/L (23-31); Chloride 102 mmol/L (98-107); Globulin 3.5 g/dL (2.4-3.5); Glucose 105 mg/dL (80-115); Potassium 4.3 mmol/L (3.5-5.1); Protein, Total 7.5 g/dL (5.8-8.1); Sodium 133 mmol/L (136-145)
[2021-07-24 12:20] LABS: Bacteria/HPF 4+ HPF (None Seen); Bilirubin Negative (Negative); Blood, Urine Trace (Negative); Clarity Turbid (Clear); Glucose, Urine (Dipstick) Normal (Negative); Ketone, Urine Negative (Negative); Leukocyte 500 Leu/uL (Negative); Nitrite 2+ (Negative); Protein, Urine (Dipstick) 20 mg/dL (Neg-Trace); Specific Gravity, Urine 1.025 (1.002-1.036); Squamous Epithelial 0-3 HPF (0-3); Urobilinogen Normal mg/dL (Less than 2); WBC/HPF Greater than 50 HPF (0-3); pH, Urine 5.5 (5.0-9.0)
== END 2021-07-24 14:13 | disposition home or self-care (01) ==
LOC: ERS 08:51
DX: N10 Acute pyelonephritis (principal); F17.210 Nicotine dependence, cigarettes, uncomplicated; Z85.43 Personal history of malignant neoplasm of ovary; Z85.038 Personal history of other malignant neoplasm of large intestine; Z93.6 Other artificial openings of urinary tract status
CPT/HCPCS: 36415; 74176; 80053; 81003; 81015; 83605; 85025; 87040; 87077; 87086; 87186; 96374; 96375; J2270; J2405

== ENCOUNTER 2021-08-05 07:40 | Day surgery (SDC) | payer MEDICARE | END 2021-08-05 09:00 | disposition home or self-care (01) | LOC: SPEC 07:40 | PROVIDERS: ATTEND Urology | PROC: 0T25X0Z Change Drainage Device in Kidney, External Approach (ICD-10-PCS; principal; 2021-08-05) | DX: C18.9 Malignant neoplasm of colon, unspecified (principal); C79.9 Secondary malignant neoplasm of unspecified site; N13.1 Hydronephrosis with ureteral stricture, not elsewhere classified | CPT/HCPCS: 50431; 50436 ==

== ENCOUNTER 2021-09-10 07:29 | Day surgery (SDC) | payer MEDICARE ==
[2021-09-09 16:26] VITALS: BMI 13.6
[2021-09-10 09:22] VITALS: BP 107/72; TEMP 98
[2021-09-10] MEDS ORDERED: Iopamidol 300 61% 50 ML VIAL FS ONE (09:53)
== END 2021-09-10 08:55 | disposition home or self-care (01) ==
LOC: SPEC 07:29
PROVIDERS: ATTEND Urology
PROC: 0T25X0Z Change Drainage Device in Kidney, External Approach (ICD-10-PCS; principal; 2021-09-10)
DX: N13.1 Hydronephrosis with ureteral stricture, not elsewhere classified (principal); C18.9 Malignant neoplasm of colon, unspecified; C79.60 Secondary malignant neoplasm of unspecified ovary; D63.0 Anemia in neoplastic disease; F17.200 Nicotine dependence, unspecified, uncomplicated; G25.81 Restless legs syndrome; J18.9 Pneumonia, unspecified organism; Z79.2 Long term (current) use of antibiotics; Z79.899 Other long term (current) drug therapy; Z93.2 Ileostomy status
CPT/HCPCS: 50431; 50436; C1729; Q9967

== ENCOUNTER 2021-09-22 15:23 | Inpatient (IN) | payer MEDICARE ==
[~2021-09-22 15:23] MED LIST changes: -Iopamidol 300 61% 50 ML VIAL FS ONE; +Iopamidol-370 76% 500 ML 1 ML ONE
[2021-09-22] MEDS ORDERED: Morphine 4 MG/ML VIAL ONE ×2 (15:45→19:33)
[2021-09-22] MEDS ORDERED: Ondansetron PF 4 MG/2 ML Vial ONE (15:45)
[2021-09-22 15:55] LABS: #Basophils 0.1 thou/uL (0.0-0.2); #Eosinphils 0.1 thou/uL (0.0-0.7); #Lymphocytes 1.7 thou/uL (1.20-3.40); #Monocytes 0.3 thou/uL (0.11-0.59); #Neutrophils 10.1 thou/uL (1.40-6.50); %Basophils 0.6 % (0.0-1.0); %Eosinophils 0.7 % (0.0-10.0); %Lymphocytes 13.7 % (21.0-51.0); %Monocytes 2.5 % (0.0-10.0); %Neutrophils 82.5 % (42.0-75.0); Hemoglobin 13.5 g/dL (12.0-16.0); Mean Corpuscular HGB CONC 33.3 g/dL (32.0-36.0); Mean Corpuscular Hemoglobin 31.2 pg (27.0-31.0); Mean Corpuscular Volume 93.7 fL (78.0-98.0); Mean Platelet Volume 6.3 fL (7.4-10.4); Platelet Count 219 thou/uL (130-400); RBC Distribution Width 13.5 % (11.5-14.5); Red Blood Cell (RBC) Count 4.34 mill/uL (4.20-5.40); White Blood Cell (WBC) Count 12.2 thou/uL (4.8-10.8)
[2021-09-22 16:43] LABS: ALT (SGPT) 8 U/L (8-55); AST (SGOT) 12 U/L (5-34); Albumin 3.9 g/dL (3.4-4.8); Alkaline Phosphatase 118 U/L (40-110); Anion Gap 14 mmol/L (10-20); BUN (Urea Nitrogen) 22 mg/dL (9.8-20.1); Bilirubin, Total 0.4 mg/dL (0.2-1.2); CK (CPK) 20 U/L (29-168); Calc. Creatinine Clearance 0 mL/min (70-130); Calcium 9.8 mg/dL (7.8-10.44); Carbon Dioxide 21 mmol/L (23-31); Chloride 108 mmol/L (98-107); Globulin 3.4 g/dL (2.4-3.5); Glucose 99 mg/dL (83-110); Lipase 822 U/L (8-78); Magnesium 1.8 mg/dL (1.6-2.6); Potassium 4.2 mmol/L (3.5-5.1); Protein, Total 7.3 g/dL (5.8-8.1); Sodium 139 mmol/L (136-145)
[2021-09-22 17:15] LABS: Bilirubin Negative (Negative); Blood, Urine 3+ (Negative); Clarity Turbid (Clear); Glucose, Urine (Dipstick) Normal (Negative); Ketone, Urine Negative (Negative); Leukocyte 500 Leu/uL (Negative); Nitrite Negative (Negative); Protein, Urine (Dipstick) 70 mg/dL (Neg-Trace); Specific Gravity, Urine 1.022 (1.002-1.036); Squamous Epithelial None Seen HPF (0-3); Urobilinogen Normal mg/dL (Less than 2); WBC/HPF Greater than 50 HPF (0-3); Yeast-Budding 2+ HPF (None Seen); pH, Urine 5.5 (5.0-9.0)
[2021-09-22 17:39] LABS: Bacteria/HPF 2+ HPF (None Seen); Yeast-Hyphae 3+ HPF (None Seen)
[2021-09-22] MEDS ORDERED: Cefepime 2 GM VIAL ONE (19:33)
[2021-09-22 21:47] VITALS: BMI 13.6
[2021-09-22] MEDS ORDERED: traMADol HCl 50 MG TAB PO SCH (22:00)
[2021-09-22] MEDS: Morphine 4 MG/ML VIAL SLOW IVP PRN (22:14)
[2021-09-23] MEDS ORDERED: Acetaminophen 325 MG TAB PO PRN (00:33)
[2021-09-23] MEDS ORDERED: HYDROcodone/Acetaminophen 5/325 mg Tablet PO PRN (00:33)
[2021-09-23] MEDS: Sodium Chloride 0.9% 1,000 ML IV SCH ×2 (01:05→20:34)
[2021-09-23 04:06] LABS: #Basophils 0.1 thou/uL (0.0-0.2); #Eosinphils 0.2 thou/uL (0.0-0.7); #Lymphocytes 2.2 thou/uL (1.20-3.40); #Monocytes 0.5 thou/uL (0.11-0.59); #Neutrophils 8.2 thou/uL (1.40-6.50); %Basophils 0.5 % (0.0-1.0); %Eosinophils 1.9 % (0.0-10.0); %Lymphocytes 19.6 % (21.0-51.0); %Monocytes 4.5 % (0.0-10.0); %Neutrophils 73.4 % (42.0-75.0); Hemoglobin 10.9 g/dL (12.0-16.0); Mean Corpuscular HGB CONC 32.8 g/dL (32.0-36.0); Mean Corpuscular Hemoglobin 30.7 pg (27.0-31.0); Mean Corpuscular Volume 93.6 fL (78.0-98.0); Mean Platelet Volume 6.6 fL (7.4-10.4); Platelet Count 179 thou/uL (130-400); RBC Distribution Width 13.6 % (11.5-14.5); Red Blood Cell (RBC) Count 3.55 mill/uL (4.20-5.40); White Blood Cell (WBC) Count 11.2 thou/uL (4.8-10.8)
[2021-09-23 04:22] LABS: Anion Gap 13 mmol/L (10-20); BUN (Urea Nitrogen) 16 mg/dL (9.8-20.1); Calc. Creatinine Clearance 34 mL/min (70-130); Calcium 8.9 mg/dL (7.8-10.44); Carbon Dioxide 17 mmol/L (23-31); Chloride 111 mmol/L (98-107); Glucose 87 mg/dL (83-110); Sodium 137 mmol/L (136-145)
[2021-09-23] MEDS: cefTRIAXone\\ROCEPHIN 1 GM in Sodium Chloride 0.9% 100 ML IVPB SCH (08:19)
[2021-09-23] MEDS ORDERED: Cefepime 2 GM in Sodium Chloride 0.9% 100 ML IVPB SCH (09:00)
[2021-09-23 12:28] LABS: SARS-CoV-2 PCR by NAA Not Detected (NotDetected)
[2021-09-23] MEDS: Morphine 4 MG/ML VIAL SLOW IVP PRN ×2 (13:48→20:34)
[2021-09-24] MEDS: Morphine 4 MG/ML VIAL SLOW IVP PRN ×2 (01:12→13:00)
[2021-09-24 05:52] LABS: #Eosinphils 0.2 thou/uL (0.0-0.7); #Lymphocytes 1.2 thou/uL (1.20-3.40); #Monocytes 0.3 thou/uL (0.11-0.59); #Neutrophils 5.2 thou/uL (1.40-6.50); %Basophils 0.4 % (0.0-1.0); %Eosinophils 2.8 % (0.0-10.0); %Lymphocytes 17.5 % (21.0-51.0); %Monocytes 4.6 % (0.0-10.0); %Neutrophils 74.7 % (42.0-75.0); Hemoglobin 10.2 g/dL (12.0-16.0); Mean Corpuscular HGB CONC 32.7 g/dL (32.0-36.0); Mean Corpuscular Hemoglobin 30.8 pg (27.0-31.0); Mean Corpuscular Volume 94.3 fL (78.0-98.0); Mean Platelet Volume 5.9 fL (7.4-10.4); Platelet Count 164 thou/uL (130-400); RBC Distribution Width 13.4 % (11.5-14.5)
[2021-09-24 06:12] LABS: Anion Gap 10 mmol/L (10-20); BUN (Urea Nitrogen) 11 mg/dL (9.8-20.1); Calc. Creatinine Clearance 39 mL/min (70-130); Calcium 8.5 mg/dL (7.8-10.44); Carbon Dioxide 22 mmol/L (23-31); Chloride 109 mmol/L (98-107); Glucose 91 mg/dL (83-110); Potassium 3.6 mmol/L (3.5-5.1); Sodium 137 mmol/L (136-145)
[2021-09-24] MEDS: traMADol HCl 50 MG TAB PO PRN ×3 (07:35→15:12)
[2021-09-24] MEDS: cefTRIAXone\\ROCEPHIN 1 GM in Sodium Chloride 0.9% 100 ML IVPB SCH (07:36)
[2021-09-24] MEDS ORDERED: Sodium Chloride 0.9% 1,000 ML IV SCH (12:45)
[2021-09-24] MEDS: Sodium Chloride 0.9% 1,000 ML IV SCH ×2 (15:11→20:51)
[2021-09-24 16:11] LABS: ALT (SGPT) Less than 7 U/L (8-55); AST (SGOT) 9 U/L (5-34); Albumin 2.6 g/dL (3.4-4.8); Alkaline Phosphatase 81 U/L (40-110); Bilirubin, Direct 0.1 mg/dL (0.1-0.3); Bilirubin, Total 0.3 mg/dL (0.2-1.2); Protein, Total 4.8 g/dL (5.8-8.1)
[2021-09-25] MEDS: Sodium Chloride 0.9% 1,000 ML IV SCH ×4 (02:16→20:17)
[2021-09-25 03:52] LABS: #Eosinphils 0.2 thou/uL (0.0-0.7); #Lymphocytes 1.1 thou/uL (1.20-3.40); #Monocytes 0.5 thou/uL (0.11-0.59); #Neutrophils 6.2 thou/uL (1.40-6.50); %Basophils 0.2 % (0.0-1.0); %Eosinophils 2.6 % (0.0-10.0); %Lymphocytes 14.2 % (21.0-51.0); Hemoglobin 10.1 g/dL (12.0-16.0); Mean Corpuscular HGB CONC 32.6 g/dL (32.0-36.0); Mean Corpuscular Hemoglobin 30.8 pg (27.0-31.0); Mean Corpuscular Volume 94.5 fL (78.0-98.0); Mean Platelet Volume 6.2 fL (7.4-10.4); Platelet Count 150 thou/uL (130-400); RBC Distribution Width 13.3 % (11.5-14.5); Red Blood Cell (RBC) Count 3.29 mill/uL (4.20-5.40)
[2021-09-25 04:08] LABS: CRP (Inflammatory) 3.13 mg/dL (= or < 0.5); Cardiac Risk 3.1 (Less than 4.5)
[2021-09-25 04:17] LABS: ALT (SGPT) Less than 7 U/L (8-55); AST (SGOT) 10 U/L (5-34); Albumin 2.4 g/dL (3.4-4.8); Alkaline Phosphatase 77 U/L (40-110); Anion Gap 11 mmol/L (10-20); BUN (Urea Nitrogen) 8 mg/dL (9.8-20.1); Bilirubin, Total 0.4 mg/dL (0.2-1.2); Calc. Creatinine Clearance 40 mL/min (70-130); Calcium 8.2 mg/dL (7.8-10.44); Carbon Dioxide 17 mmol/L (23-31); Chloride 113 mmol/L (98-107); Globulin 2.4 g/dL (2.4-3.5); Glucose 68 mg/dL (83-110); Lipase 171 U/L (8-78); Potassium 3.4 mmol/L (3.5-5.1); Protein, Total 4.8 g/dL (5.8-8.1); Sodium 138 mmol/L (136-145)
[2021-09-25] MEDS: Morphine 4 MG/ML VIAL SLOW IVP PRN ×3 (05:34→22:25)
[2021-09-25] MEDS: cefTRIAXone\\ROCEPHIN 1 GM in Sodium Chloride 0.9% 100 ML IVPB SCH (08:54)
[2021-09-25] MEDS ORDERED: Potassium Chloride 20 MEQ TAB PO SCH (09:00)
[2021-09-25] MEDS: traMADol HCl 50 MG TAB PO PRN (10:48)
[2021-09-25] MEDS: Ondansetron PF 4 MG/2 ML Vial IVP PRN (14:28)
[2021-09-25] MEDS ORDERED: Fluconazole 100 MG TAB PO SCH (16:15)
[2021-09-25] MEDS: HYDROcodone/Acetaminophen 5/325 mg Tablet PO PRN ×2 (16:45→23:56)
[2021-09-26] MEDS ORDERED: Dicyclomine 20 MG TAB PO SCH (00:30)
[2021-09-26] MEDS: Sodium Chloride 0.9% 1,000 ML IV SCH ×3 (03:38→18:37)
[2021-09-26] MEDS: Morphine 4 MG/ML VIAL SLOW IVP PRN (03:39)
[2021-09-26 05:01] LABS: #Eosinphils 0.1 thou/uL (0.0-0.7); #Lymphocytes 1.1 thou/uL (1.20-3.40); #Monocytes 0.6 thou/uL (0.11-0.59); #Neutrophils 8.7 thou/uL (1.40-6.50); %Basophils 0.2 % (0.0-1.0); %Lymphocytes 10.4 % (21.0-51.0); %Monocytes 5.8 % (0.0-10.0); %Neutrophils 82.5 % (42.0-75.0); Mean Corpuscular HGB CONC 33.2 g/dL (32.0-36.0); Mean Corpuscular Hemoglobin 31.4 pg (27.0-31.0); Mean Corpuscular Volume 94.4 fL (78.0-98.0); Mean Platelet Volume 6.4 fL (7.4-10.4); Platelet Count 160 thou/uL (130-400); RBC Distribution Width 13.6 % (11.5-14.5); Red Blood Cell (RBC) Count 3.19 mill/uL (4.20-5.40); White Blood Cell (WBC) Count 10.5 thou/uL (4.8-10.8)
[2021-09-26 05:26] LABS: ALT (SGPT) Less than 7 U/L (8-55); AST (SGOT) 9 U/L (5-34); Albumin 2.6 g/dL (3.4-4.8); Alkaline Phosphatase 77 U/L (40-110); Anion Gap 12 mmol/L (10-20); BUN (Urea Nitrogen) 9 mg/dL (9.8-20.1); Bilirubin, Total 0.3 mg/dL (0.2-1.2); Calc. Creatinine Clearance 33 mL/min (70-130); Calcium 8.5 mg/dL (7.8-10.44); Carbon Dioxide 16 mmol/L (23-31); Chloride 114 mmol/L (98-107); Globulin 2.4 g/dL (2.4-3.5); Glucose 74 mg/dL (83-110); Lipase 67 U/L (8-78); Potassium 4.4 mmol/L (3.5-5.1); Sodium 138 mmol/L (136-145)
[2021-09-26] MEDS: HYDROcodone/Acetaminophen 5/325 mg Tablet PO PRN (06:40)
[2021-09-26] MEDS: Fluconazole 100 MG TAB PO SCH (09:21)
[2021-09-26] MEDS: cefTRIAXone\\ROCEPHIN 1 GM in Sodium Chloride 0.9% 100 ML IVPB SCH (09:21)
[2021-09-26] MEDS: HYDROcodone/Acetaminophen 7.5/325 mg Tablet PO PRN ×2 (14:04→20:59)
[2021-09-26] MEDS ORDERED: Piperacillin/Tazobactam 3.375 GM in Sodium Chloride 0.9% 100 ML IVPB SCH (16:00)
[2021-09-26] MEDS: Piperacillin/Tazobactam 3.375 GM in Sodium Chloride 0.9% 100 ML IVPB SCH (20:55)
[2021-09-27] MEDS: Sodium Chloride 0.9% 1,000 ML IV SCH ×4 (00:25→20:59)
[2021-09-27] MEDS: Piperacillin/Tazobactam 3.375 GM in Sodium Chloride 0.9% 100 ML IVPB SCH ×3 (04:27→19:48)
[2021-09-27 05:15] LABS: #Eosinphils 0.3 thou/uL (0.0-0.7); #Lymphocytes 0.9 thou/uL (1.20-3.40); #Monocytes 0.4 thou/uL (0.11-0.59); #Neutrophils 5.7 thou/uL (1.40-6.50); %Basophils 0.3 % (0.0-1.0); %Eosinophils 3.9 % (0.0-10.0); %Neutrophils 77.9 % (42.0-75.0); Hemoglobin 9.3 g/dL (12.0-16.0); Mean Corpuscular HGB CONC 31.9 g/dL (32.0-36.0); Mean Corpuscular Hemoglobin 31.1 pg (27.0-31.0); Mean Corpuscular Volume 97.4 fL (78.0-98.0); Mean Platelet Volume 6.4 fL (7.4-10.4); Platelet Count 158 thou/uL (130-400); RBC Distribution Width 13.9 % (11.5-14.5); Red Blood Cell (RBC) Count 2.98 mill/uL (4.20-5.40); White Blood Cell (WBC) Count 7.3 thou/uL (4.8-10.8)
[2021-09-27 05:40] LABS: ALT (SGPT) Less than 7 U/L (8-55); AST (SGOT) 11 U/L (5-34); Albumin 2.3 g/dL (3.4-4.8); Alkaline Phosphatase 71 U/L (40-110); Anion Gap 10 mmol/L (10-20); BUN (Urea Nitrogen) 6 mg/dL (9.8-20.1); Bilirubin, Total 0.3 mg/dL (0.2-1.2); Calc. Creatinine Clearance 36 mL/min (70-130); Calcium 8.3 mg/dL (7.8-10.44); Carbon Dioxide 17 mmol/L (23-31); Chloride 114 mmol/L (98-107); Globulin 2.4 g/dL (2.4-3.5); Glucose 74 mg/dL (83-110); Magnesium 1.3 mg/dL (1.6-2.6); Phosphorus 2.4 mg/dL (2.3-4.7); Potassium 3.6 mmol/L (3.5-5.1); Protein, Total 4.7 g/dL (5.8-8.1); Sodium 137 mmol/L (136-145)
[2021-09-27] MEDS: Fluconazole 100 MG TAB PO SCH (09:23)
[2021-09-27] MEDS ORDERED: Electrolyte Replacement Protocol 1 EACH FS SCH (19:45)
[2021-09-27] MEDS: HYDROcodone/Acetaminophen 7.5/325 mg Tablet PO PRN (19:47)
[2021-09-27] MEDS ORDERED: Magnesium Sulfate 4 GM in Sodium Chloride 0.9% 250 ML 250 ML IVPB SCH (20:00)
[2021-09-27] MEDS: Mirtazapine 15 MG TAB PO SCH (20:59)
[2021-09-28] MEDS: Piperacillin/Tazobactam 3.375 GM in Sodium Chloride 0.9% 100 ML IVPB SCH ×3 (03:55→20:19)
[2021-09-28] MEDS: Sodium Chloride 0.9% 1,000 ML IV SCH ×2 (03:58→07:45)
[2021-09-28 06:23] LABS: Anion Gap 10 mmol/L (10-20); BUN (Urea Nitrogen) 4 mg/dL (9.8-20.1); Calc. Creatinine Clearance 38 mL/min (70-130); Calcium 7.6 mg/dL (7.8-10.44); Carbon Dioxide 19 mmol/L (23-31); Chloride 114 mmol/L (98-107); Glucose 81 mg/dL (83-110); Magnesium 2.4 mg/dL (1.6-2.6); Sodium 140 mmol/L (136-145)
[2021-09-28 06:28] LABS: Potassium 2.9 mmol/L (3.5-5.1)
[2021-09-28] MEDS ORDERED: Potassium Chloride 20 MEQ TAB PO SCH (07:00)
[2021-09-28 07:10] LABS: Potassium 2.9 mmol/L (3.5-5.1)
[2021-09-28] MEDS: Fluconazole 100 MG TAB PO SCH (07:45)
[2021-09-28] MEDS: PHOS-NAK 1 PKT PACK PO SCH ×3 (07:45→16:45)
[2021-09-28] MEDS: Potassium Chloride 20 MEQ TAB PO SCH ×3 (08:48→20:19)
[2021-09-28] MEDS: Morphine 4 MG/ML VIAL SLOW IVP PRN (20:13)
[2021-09-28] MEDS: Mirtazapine 15 MG TAB PO SCH (20:32)
[2021-09-28] MEDS ORDERED: Morphine 4 MG/ML VIAL SLOW IVP PRN ×3 (22:10→22:12)
[2021-09-28] MEDS ORDERED: Dicyclomine 20 MG TAB PO SCH (22:15)
[2021-09-29] MEDS: Potassium Chloride 20 MEQ TAB PO SCH (01:09)
[2021-09-29] MEDS: Ondansetron PF 4 MG/2 ML Vial IVP PRN (02:16)
[2021-09-29] MEDS: Piperacillin/Tazobactam 3.375 GM in Sodium Chloride 0.9% 100 ML IVPB SCH ×3 (03:01→20:25)
[2021-09-29 05:22] LABS: #Lymphocytes 0.7 thou/uL (1.20-3.40); #Monocytes 0.3 thou/uL (0.11-0.59); #Neutrophils 12.1 thou/uL (1.40-6.50); %Basophils 0.2 % (0.0-1.0); %Eosinophils 0.3 % (0.0-10.0); %Lymphocytes 5.1 % (21.0-51.0); %Monocytes 2.5 % (0.0-10.0); Hemoglobin 11.5 g/dL (12.0-16.0); Mean Corpuscular HGB CONC 32.8 g/dL (32.0-36.0); Mean Corpuscular Hemoglobin 31.4 pg (27.0-31.0); Mean Corpuscular Volume 95.7 fL (78.0-98.0); Mean Platelet Volume 6.2 fL (7.4-10.4); Platelet Count 300 thou/uL (130-400); RBC Distribution Width 14.1 % (11.5-14.5); Red Blood Cell (RBC) Count 3.66 mill/uL (4.20-5.40); White Blood Cell (WBC) Count 13.2 thou/uL (4.8-10.8)
[2021-09-29 05:46] LABS: Anion Gap 16 mmol/L (10-20); BUN (Urea Nitrogen) 4 mg/dL (9.8-20.1); Calc. Creatinine Clearance 32 mL/min (70-130); Carbon Dioxide 16 mmol/L (23-31); Chloride 114 mmol/L (98-107); Glucose 117 mg/dL (83-110); Potassium 5.1 mmol/L (3.5-5.1); Sodium 141 mmol/L (136-145)
[2021-09-29] MEDS: Fluconazole 100 MG TAB PO SCH (08:32)
[2021-09-29] MEDS: Sodium Chloride 0.9% 1,000 ML IV SCH (09:14)
[2021-09-29] MEDS ORDERED: Furosemide 40 MG/4 ML VIAL SLOW IVP SCH (15:00)
[2021-09-29] MEDS ORDERED: ALPRAZolam 0.5 MG TAB PO PRN (16:52)
[2021-09-29] MEDS ORDERED: ALPRAZolam 1 MG TAB PO SCH (17:00)
[2021-09-29] MEDS: methylPREDNISolone Sod Succ 40 MG VIAL IVP SCH (17:09)
[2021-09-29] MEDS: Mirtazapine 15 MG TAB PO SCH (20:26)
[2021-09-30] MEDS: methylPREDNISolone Sod Succ 40 MG VIAL IVP SCH ×3 (01:05→16:52)
[2021-09-30] MEDS ORDERED: Lorazepam 2 MG/ML VIAL SLOW IVP SCH (02:49)
[2021-09-30] MEDS: Piperacillin/Tazobactam 3.375 GM in Sodium Chloride 0.9% 100 ML IVPB SCH ×3 (04:01→19:42)
[2021-09-30 04:59] LABS: Anion Gap 13 mmol/L (10-20); BUN (Urea Nitrogen) 6 mg/dL (9.8-20.1); Calc. Creatinine Clearance 29 mL/min (70-130); Calcium 8.4 mg/dL (7.8-10.44); Carbon Dioxide 22 mmol/L (23-31); Chloride 111 mmol/L (98-107); Glucose 135 mg/dL (83-110); Potassium 4.4 mmol/L (3.5-5.1); Sodium 142 mmol/L (136-145)
[2021-09-30] MEDS: Fluconazole 100 MG TAB PO SCH (08:29)
[2021-09-30 17:39] LABS: SARS-CoV-2 PCR by NAA Not Detected (NotDetected)
[2021-09-30] MEDS: Mirtazapine 15 MG TAB PO SCH (19:40)
[2021-10-01] MEDS: methylPREDNISolone Sod Succ 40 MG VIAL IVP SCH ×2 (00:07→08:09)
[2021-10-01 03:22] LABS: Anion Gap 13 mmol/L (10-20); BUN (Urea Nitrogen) 16 mg/dL (9.8-20.1); Calc. Creatinine Clearance 27 mL/min (70-130); Calcium 8.2 mg/dL (7.8-10.44); Carbon Dioxide 23 mmol/L (23-31); Chloride 110 mmol/L (98-107); Glucose 117 mg/dL (83-110); Sodium 142 mmol/L (136-145)
[2021-10-01] MEDS: Piperacillin/Tazobactam 3.375 GM in Sodium Chloride 0.9% 100 ML IVPB SCH (04:21)
[2021-10-01 09:58] VITALS: BP 122/70; TEMP 97.9
== END 2021-10-01 13:19 | disposition home or self-care (01) | DRG 698 ==
LOC: ERS 15:23 → ONC 19:43
PROVIDERS: ADMIT Student in an Organized Health Care Education/Training Program; ATTEND Internal Medicine
PROC: 0T25X0Z Change Drainage Device in Kidney, External Approach (ICD-10-PCS; principal; 2021-10-01)
DX: T83.512A Infection and inflammatory reaction due to nephrostomy catheter, initial encounter (principal); A41.59 Other Gram-negative sepsis; E43 Unspecified severe protein-calorie malnutrition; K85.90 Acute pancreatitis without necrosis or infection, unspecified; B37.7 Candidal sepsis; N13.6 Pyonephrosis; C79.89 Secondary malignant neoplasm of other specified sites; Z68.1 Body mass index [BMI] 19.9 or less, adult; Z20.822 Contact with and (suspected) exposure to COVID-19; F17.210 Nicotine dependence, cigarettes, uncomplicated; Z90.710 Acquired absence of both cervix and uterus; Z93.2 Ileostomy status; Z98.890 Other specified postprocedural states; Z85.038 Personal history of other malignant neoplasm of large intestine; Z85.43 Personal history of malignant neoplasm of ovary; Z88.8 Allergy status to other drugs, medicaments and biological substances; Z79.899 Other long term (current) drug therapy; Y84.6 Urinary catheterization as the cause of abnormal reaction of the patient, or of later complication, without mention of misadventure at the time of the procedure
CPT/HCPCS: 36415; 50430; 50431; 50436; 70450; 71045; 74177; 75984; 80048; 80053; 80061; 80076; 81003; 81015; 82550; 83605; 83690; 83735; 84100; 84484; 85025; 86140; 87040; 87086; 93005; 94640; 96365; 96375; 96376; C1729; J0692; J0696; J1642; J1940; J2270; J2405; J2543; J2920; J3475; J3490; J7050; J7620; Q9967; U0003; U0005

== ENCOUNTER 2021-10-02 23:49 | Emergency (ER) | payer MEDICARE | END 2021-10-03 01:12 | disposition home or self-care (01) | LOC: ERS 23:49 | DX: N99.522 Malfunction of incontinent external stoma of urinary tract (principal) | CPT/HCPCS: 99283 ==

== ENCOUNTER 2021-10-03 08:43 | Day surgery (SDC) | payer MEDICARE ==
[2021-10-03 10:46] VITALS: BP 107/71
== END 2021-10-03 10:20 | disposition home or self-care (01) ==
LOC: SPEC 08:43
PROVIDERS: ATTEND Urology
PROC: 0T25X0Z Change Drainage Device in Kidney, External Approach (ICD-10-PCS; principal; 2021-10-03)
DX: T83.022A Displacement of nephrostomy catheter, initial encounter (principal); N13.1 Hydronephrosis with ureteral stricture, not elsewhere classified; Z88.8 Allergy status to other drugs, medicaments and biological substances
CPT/HCPCS: 50430; 50433

== ENCOUNTER 2021-11-10 16:17 | Inpatient (IN) | payer MEDICARE ==
[2021-11-10 17:51] LABS: #Basophils 0.1 thou/uL (0.0-0.2); #Lymphocytes 1.2 thou/uL (1.20-3.40); #Monocytes 0.3 thou/uL (0.11-0.59); %Basophils 1.5 % (0.0-1.0); %Eosinophils 0.7 % (0.0-10.0); %Lymphocytes 34.6 % (21.0-51.0); %Neutrophils 55.2 % (42.0-75.0); Hemoglobin 11.6 g/dL (12.0-16.0); Mean Corpuscular HGB CONC 34.1 g/dL (32.0-36.0); Mean Corpuscular Hemoglobin 32.1 pg (27.0-31.0); Mean Corpuscular Volume 94.1 fL (78.0-98.0); Mean Platelet Volume 7.4 fL (7.4-10.4); Platelet Count 221 thou/uL (130-400); RBC Distribution Width 15.1 % (11.5-14.5); Red Blood Cell (RBC) Count 3.61 mill/uL (4.20-5.40); White Blood Cell (WBC) Count 3.6 thou/uL (4.8-10.8)
[2021-11-10] MEDS ORDERED: Morphine 4 MG/ML VIAL ONE (17:59)
[2021-11-10 18:10] LABS: ALT (SGPT) Less than 7 U/L (8-55); AST (SGOT) 17 U/L (5-34); Albumin 3.9 g/dL (3.4-4.8); Alkaline Phosphatase 140 U/L (40-110); Anion Gap 21 mmol/L (10-20); BUN (Urea Nitrogen) 69 mg/dL (9.8-20.1); Bilirubin, Total 0.6 mg/dL (0.2-1.2); Calc. Creatinine Clearance 0 mL/min (70-130); Calcium 9.5 mg/dL (7.8-10.44); Carbon Dioxide 16 mmol/L (23-31); Chloride 99 mmol/L (98-107); Globulin 3.5 g/dL (2.4-3.5); Glucose 97 mg/dL (83-110); Lipase 105 U/L (8-78); Potassium 6.3 mmol/L (3.5-5.1); Protein, Total 7.4 g/dL (5.8-8.1); Sodium 130 mmol/L (136-145)
[2021-11-10] MEDS ORDERED: Cefepime 2 GM VIAL ONE (18:15)
[2021-11-10] MEDS ORDERED: Vancomycin 1 GM/200 ML BAG ONE (18:15)
[2021-11-10] MEDS ORDERED: Calcium Chloride 1 GM/10 ML Abboject SYRINGE ONE (18:48)
[2021-11-10] MEDS ORDERED: Insulin Regular 300 UNITS/3 ML VIAL ONE (18:48)
[2021-11-10] MEDS ORDERED: Dextrose 50% Abboject 50 ML SYRINGE ONE (18:48)
[2021-11-10] MEDS ORDERED: Sodium Bicarb 50 MEQ/50 ML Abboject 8.4% SYRINGE ONE (18:48)
[2021-11-10 19:12] LABS: Bilirubin Negative (Negative); Blood, Urine 3+ (Negative); Clarity Extra Turbid (Clear); Glucose, Urine (Dipstick) Normal (Negative); Ketone, Urine Negative (Negative); Leukocyte 500 Leu/uL (Negative); Nitrite Negative (Negative); Protein, Urine (Dipstick) 100 mg/dL (Neg-Trace); RBC/HPF 21-50 HPF (0-3); Specific Gravity, Urine 1.011 (1.002-1.036); Squamous Epithelial None Seen HPF (0-3); Urobilinogen Normal mg/dL (Less than 2); WBC/HPF Greater than 50 HPF (0-3)
[2021-11-10 19:27] LABS: Bacteria/HPF 4+ HPF (None Seen)
[2021-11-10] MEDS ORDERED: Albuterol Sulfate 2.5 mg/3 ml Neb ONE (19:41)
[2021-11-10 19:58] LABS: Anion Gap 14 mmol/L (10-20); BUN (Urea Nitrogen) 63 mg/dL (9.8-20.1); Calc. Creatinine Clearance 0 mL/min (70-130); Calcium 9.9 mg/dL (7.8-10.44); Carbon Dioxide 17 mmol/L (23-31); Chloride 106 mmol/L (98-107); Glucose 192 mg/dL (83-110); Potassium 4.9 mmol/L (3.5-5.1); Sodium 132 mmol/L (136-145)
[2021-11-10 20:43] LABS: SARS-CoV-2 NAA Rapid Test Not Detected (NotDetected)
[2021-11-10] MEDS ORDERED: Acetaminophen 325 MG TAB PO PRN (20:59)
[2021-11-10] MEDS ORDERED: Ondansetron PF 4 MG/2 ML Vial IVP PRN (20:59)
[2021-11-10] MEDS: Sodium Chloride 0.9% 1,000 ML IV SCH (22:39)
[2021-11-10] MEDS: Heparin 5,000 UNITS/ML VIAL SC SCH (22:40)
[2021-11-10 22:41] LABS: Lactic Acid 3.2 mmol/L (0.5-2.2)
[2021-11-11 05:11] LABS: Anion Gap 14 mmol/L (10-20); BUN (Urea Nitrogen) 51 mg/dL (9.8-20.1); Calc. Creatinine Clearance 16 mL/min (70-130); Calcium 8.6 mg/dL (7.8-10.44); Carbon Dioxide 18 mmol/L (23-31); Chloride 109 mmol/L (98-107); Glucose 96 mg/dL (83-110); Potassium 3.7 mmol/L (3.5-5.1); Sodium 137 mmol/L (136-145)
[2021-11-11 05:14] LABS: Band 10 % (5-11); Lymphocytes 54 % (21-51); MDiff Complete? YES; Mean Corpuscular HGB CONC 34.3 g/dL (32.0-36.0); Mean Corpuscular Hemoglobin 31.5 pg (27.0-31.0); Mean Corpuscular Volume 91.8 fL (78.0-98.0); Monocytes 4 % (0-10); Neutrophil 32 % (42-75); Platelet Count 185 thou/uL (130-400); Platelet Morphology Comment Appears Adequate; RBC Morphology Normal; Red Blood Cell (RBC) Count 3.18 mill/uL (4.20-5.40); White Blood Cell (WBC) Count 2.8 thou/uL (4.8-10.8)
[2021-11-11] MEDS: Acetaminophen 500 MG TAB PO PRN ×2 (05:17→20:06)
[2021-11-11] MEDS ORDERED: cefTRIAXone\\ROCEPHIN 1 GM in Sodium Chloride 0.9% 100 ML IVPB SCH (06:00)
[2021-11-11 07:13] LABS: Lactic Acid 1.5 mmol/L (0.5-2.2)
[2021-11-11] MEDS: Cefepime 1 GM in Sodium Chloride 0.9% 100 ML IVPB SCH ×2 (08:44→18:15)
[2021-11-11] MEDS: Sodium Chloride 0.9% 1,000 ML IV SCH (08:46)
[2021-11-11] MEDS: Heparin 5,000 UNITS/ML VIAL SC SCH ×3 (08:46→20:07)
[2021-11-11] MEDS: Mirtazapine 15 MG TAB PO SCH (08:46)
[2021-11-11] MEDS ORDERED: NS 0.9% w/ 20 MEQ KCL 1,000 ML/1,000 ML BAG IV SCH (09:00)
[2021-11-11] MEDS: NS 0.9% w/ 20 MEQ KCL 1,000 ML/1,000 ML BAG IV SCH (14:27)
[2021-11-12] MEDS: NS 0.9% w/ 20 MEQ KCL 1,000 ML/1,000 ML BAG IV SCH ×2 (04:17→15:55)
[2021-11-12 05:13] LABS: #Eosinphils 0.1 thou/uL (0.0-0.7); #Lymphocytes 1.3 thou/uL (1.20-3.40); #Monocytes 0.3 thou/uL (0.11-0.59); #Neutrophils 1.3 thou/uL (1.40-6.50); %Basophils 0.3 % (0.0-1.0); %Eosinophils 3.5 % (0.0-10.0); %Lymphocytes 44.6 % (21.0-51.0); %Monocytes 9.2 % (0.0-10.0); %Neutrophils 42.5 % (42.0-75.0); Hemoglobin 9.3 g/dL (12.0-16.0); Mean Corpuscular HGB CONC 31.9 g/dL (32.0-36.0); Mean Corpuscular Hemoglobin 31.8 pg (27.0-31.0); Mean Corpuscular Volume 99.7 fL (78.0-98.0); Platelet Count 177 thou/uL (130-400); RBC Distribution Width 15.4 % (11.5-14.5); Red Blood Cell (RBC) Count 2.92 mill/uL (4.20-5.40)
[2021-11-12 05:40] LABS: Anion Gap 11 mmol/L (10-20); BUN (Urea Nitrogen) 31 mg/dL (9.8-20.1); Calc. Creatinine Clearance 24 mL/min (70-130); Calcium 8.2 mg/dL (7.8-10.44); Carbon Dioxide 14 mmol/L (23-31); Chloride 118 mmol/L (98-107); Glucose 84 mg/dL (83-110); Potassium 4.2 mmol/L (3.5-5.1); Sodium 139 mmol/L (136-145)
[2021-11-12] MEDS ORDERED: Sodium Bicarbonate 2.5 MEQ/5 ML VIAL ONE (07:32)
[2021-11-12] MEDS ORDERED: Lidocaine 1% PF 5 ML VIAL ONE (07:32)
[2021-11-12] MEDS ORDERED: Fentanyl 100 MCG/2 ML VIAL ONE (08:09)
[2021-11-12] MEDS: Cefepime 1 GM in Sodium Chloride 0.9% 100 ML IVPB SCH (09:34)
[2021-11-12] MEDS: Mirtazapine 15 MG TAB PO SCH (09:34)
[2021-11-12] MEDS: Heparin 5,000 UNITS/ML VIAL SC SCH ×3 (09:35→21:27)
[2021-11-12] MEDS ORDERED: Iopamidol 300 61% 50 ML VIAL FS ONE (10:22)
[2021-11-12] MEDS: Acetaminophen 500 MG TAB PO PRN (21:26)
[2021-11-13] MEDS: NS 0.9% w/ 20 MEQ KCL 1,000 ML/1,000 ML BAG IV SCH (02:21)
[2021-11-13 05:12] LABS: #Eosinphils 0.1 thou/uL (0.0-0.7); #Lymphocytes 1.3 thou/uL (1.20-3.40); #Monocytes 0.2 thou/uL (0.11-0.59); #Neutrophils 1.2 thou/uL (1.40-6.50); %Basophils 1.2 % (0.0-1.0); %Eosinophils 4.2 % (0.0-10.0); %Lymphocytes 45.9 % (21.0-51.0); %Monocytes 7.6 % (0.0-10.0); %Neutrophils 41.1 % (42.0-75.0); Hemoglobin 11.2 g/dL (12.0-16.0); Mean Corpuscular HGB CONC 33.3 g/dL (32.0-36.0); Mean Corpuscular Hemoglobin 31.7 pg (27.0-31.0); Mean Corpuscular Volume 95.1 fL (78.0-98.0); Platelet Count 194 thou/uL (130-400); RBC Distribution Width 15.4 % (11.5-14.5); Red Blood Cell (RBC) Count 3.54 mill/uL (4.20-5.40); White Blood Cell (WBC) Count 2.8 thou/uL (4.8-10.8)
[2021-11-13 05:42] LABS: Anion Gap 15 mmol/L (10-20); BUN (Urea Nitrogen) 21 mg/dL (9.8-20.1); Calc. Creatinine Clearance 22 mL/min (70-130); Calcium 9.5 mg/dL (7.8-10.44); Carbon Dioxide 14 mmol/L (23-31); Chloride 115 mmol/L (98-107); Glucose 83 mg/dL (83-110); Potassium 4.2 mmol/L (3.5-5.1); Sodium 140 mmol/L (136-145)
[2021-11-13] MEDS ORDERED: Cefdinir 300 MG CAP PO SCH (09:00)
[2021-11-13] MEDS ORDERED: Cefepime 1 GM in Sodium Chloride 0.9% 100 ML IVPB SCH (09:00)
[2021-11-13] MEDS: Mirtazapine 15 MG TAB PO SCH (09:09)
[2021-11-13] MEDS: Heparin 5,000 UNITS/ML VIAL SC SCH (09:09)
[2021-11-13 09:22] VITALS: BMI 13.8
[2021-11-13 11:51] VITALS: TEMP 97
[2021-11-13 11:54] VITALS: BP 108/61
[2021-11-14] MEDS ORDERED: FLU VACC QS2021-22(65YR UP)/PF 240 MCG/0.7 ML SYRINGE IM ONE (09:00)
== END 2021-11-13 13:32 | disposition home or self-care (01) | DRG 699 ==
LOC: ERS 16:17 → 2NO 19:02
PROVIDERS: ADMIT Family Medicine; ATTEND Internal Medicine
PROC: 0T25X0Z Change Drainage Device in Kidney, External Approach (ICD-10-PCS; principal; 2021-11-12)
DX: T83.512A Infection and inflammatory reaction due to nephrostomy catheter, initial encounter (principal); N17.9 Acute kidney failure, unspecified; Z20.822 Contact with and (suspected) exposure to COVID-19; C78.5 Secondary malignant neoplasm of large intestine and rectum; E87.1 Hypo-osmolality and hyponatremia; E46 Unspecified protein-calorie malnutrition; E87.5 Hyperkalemia; R91.1 Solitary pulmonary nodule; E86.0 Dehydration; F17.210 Nicotine dependence, cigarettes, uncomplicated; Z68.1 Body mass index [BMI] 19.9 or less, adult; Z90.49 Acquired absence of other specified parts of digestive tract; Z82.49 Family history of ischemic heart disease and other diseases of the circulatory system; Z85.43 Personal history of malignant neoplasm of ovary; Z92.21 Personal history of antineoplastic chemotherapy; Z90.722 Acquired absence of ovaries, bilateral; Z90.710 Acquired absence of both cervix and uterus; Z93.6 Other artificial openings of urinary tract status; Z93.2 Ileostomy status; Z88.8 Allergy status to other drugs, medicaments and biological substances
CPT/HCPCS: 0240U; 36415; 36416; 50431; 50436; 71045; 76770; 80048; 80053; 81003; 81015; 83605; 83690; 84484; 85025; 87040; 87077; 87086; 87186; 93005; 94760; 96365; 96367; 96375; J0692; J1644; J1815; J2270; J3010; J3370; J3480; J3490; J7050; J7611; Q9967

== ENCOUNTER 2021-11-16 16:29 | Inpatient (IN) | payer MEDICARE ==
[2021-11-16] MEDS ORDERED: Cefepime 2 GM VIAL ONE (17:20)
[2021-11-16 17:27] LABS: #Lymphocytes 1.9 thou/uL (1.20-3.40); #Monocytes 0.9 thou/uL (0.11-0.59); #Neutrophils 3.5 thou/uL (1.40-6.50); %Basophils 0.5 % (0.0-1.0); %Eosinophils 0.3 % (0.0-10.0); %Lymphocytes 29.7 % (21.0-51.0); %Neutrophils 55.5 % (42.0-75.0); Hemoglobin 12.3 g/dL (12.0-16.0); Mean Corpuscular HGB CONC 33.6 g/dL (32.0-36.0); Mean Corpuscular Hemoglobin 31.3 pg (27.0-31.0); Mean Corpuscular Volume 93.1 fL (78.0-98.0); Mean Platelet Volume 7.6 fL (7.4-10.4); Platelet Count 215 thou/uL (130-400); RBC Distribution Width 16.6 % (11.5-14.5); Red Blood Cell (RBC) Count 3.94 mill/uL (4.20-5.40); White Blood Cell (WBC) Count 6.4 thou/uL (4.8-10.8)
[2021-11-16 17:38] LABS: Prothrombin Time 13.4 sec (12.0-14.7)
[2021-11-16 17:40] LABS: D-Dimer Test 1.79 *mcg/mL (0.27-0.43)
[2021-11-16 17:44] LABS: PTT 19.6 sec (22.9-36.1)
[2021-11-16 17:49] LABS: ALT (SGPT) 10 U/L (8-55); AST (SGOT) 21 U/L (5-34); Alkaline Phosphatase 152 U/L (40-110); Anion Gap 20 mmol/L (10-20); BUN (Urea Nitrogen) 35 mg/dL (9.8-20.1); Bilirubin, Total 0.3 mg/dL (0.2-1.2); Calc. Creatinine Clearance 0 mL/min (70-130); Calcium 10.1 mg/dL (7.8-10.44); Carbon Dioxide 12 mmol/L (23-31); Chloride 102 mmol/L (98-107); Globulin 4.2 g/dL (2.4-3.5); Glucose 92 mg/dL (83-110); Protein, Total 8.2 g/dL (5.8-8.1); Sodium 129 mmol/L (136-145)
[2021-11-16] MEDS ORDERED: Vancomycin HCl 500 MG VIAL ONE (18:00)
[2021-11-16] MEDS ORDERED: Sodium Bicarb 50 MEQ/50 ML Abboject 8.4% SYRINGE ONE (18:35)
[2021-11-16] MEDS ORDERED: Ondansetron ODT 4 MG TAB PO PRN (19:09)
[2021-11-16] MEDS ORDERED: Ondansetron PF 4 MG/2 ML Vial IVP PRN (19:09)
[2021-11-16] MEDS ORDERED: Acetaminophen 325 MG TAB PO PRN (19:09)
[2021-11-16 19:19] LABS: Bilirubin Negative (Negative); Blood, Urine 3+ (Negative); Clarity Extra Turbid (Clear); Glucose, Urine (Dipstick) Normal (Negative); Ketone, Urine Negative (Negative); Leukocyte 500 Leu/uL (Negative); Nitrite Negative (Negative); Protein, Urine (Dipstick) 300 mg/dL (Neg-Trace); Specific Gravity, Urine 1.024 (1.002-1.036); Squamous Epithelial None Seen HPF (0-3); Urobilinogen Normal mg/dL (Less than 2)
[2021-11-16 19:20] LABS: SARS-CoV-2 NAA Rapid Test DETECTED (NotDetected)
[2021-11-16 19:32] LABS: Bacteria/HPF 2+ HPF (None Seen); RBC/HPF Greater than 50 HPF (0-3); WBC/HPF Greater than 50 HPF (0-3); Yeast-Hyphae 2+ HPF (None Seen)
[2021-11-16 19:33] LABS: Yeast-Budding 1+ HPF (None Seen)
[2021-11-16] MEDS ORDERED: Norepinephrine 8 MG/0.9% NS 250 ML ONE (19:42)
[2021-11-16 21:42] LABS: Lactic Acid 2.1 mmol/L (0.5-2.2)
[2021-11-16] MEDS: Heparin 5,000 UNITS/ML VIAL SC SCH (23:18)
[2021-11-16] MEDS: Sodium Chloride 0.9% 1,000 ML IV SCH (23:21)
[2021-11-16] MEDS ORDERED: Vancomycin HCl 250 MG, Admixture Fee 1 EACH in Sodium Chloride 0.9% 100 ML IVPB SCH (23:59)
[2021-11-17] MEDS ORDERED: Vancomycin HCl 250 MG, Admixture Fee 1 EACH in Sodium Chloride 0.9% 100 ML IVPB SCH (01:00)
[2021-11-17] MEDS ORDERED: Norepinephrine 8 MG/0.9% NS 250 ML IVPB SCH ×2 (01:45)
[2021-11-17 04:22] LABS: Anion Gap 14 mmol/L (10-20); BUN (Urea Nitrogen) 30 mg/dL (9.8-20.1); Calc. Creatinine Clearance 15 mL/min (70-130); Calcium 7.7 mg/dL (7.8-10.44); Carbon Dioxide 13 mmol/L (23-31); Chloride 111 mmol/L (98-107); Glucose 104 mg/dL (83-110); Potassium 3.5 mmol/L (3.5-5.1); Sodium 134 mmol/L (136-145)
[2021-11-17 04:50] LABS: Lactic Acid 1.5 mmol/L (0.5-2.2)
[2021-11-17] MEDS ORDERED: Cefepime 2 GM in Sodium Chloride 0.9% 100 ML IVPB SCH (06:00)
[2021-11-17] MEDS: Sodium Chloride 0.9% 1,000 ML IV SCH ×2 (07:39→09:59)
[2021-11-17] MEDS ORDERED: FLU VACC QS2021-22(65YR UP)/PF 240 MCG/0.7 ML SYRINGE IM ONE (09:00)
[2021-11-17] MEDS: Heparin 5,000 UNITS/ML VIAL SC SCH ×3 (09:00→20:56)
[2021-11-17] MEDS: Multivitamins, Adult 10 ML, Folic Acid 1 MG in Dextrose 5 %-0.45 % NaCl 1,000 ML IV SCH (12:56)
[2021-11-17] MEDS: Thiamine HCl 200 MG/2 ML VIAL SLOW IVP SCH (13:41)
[2021-11-17] MEDS ORDERED: Sodium Chloride 0.9% 1,000 ML IV SCH (14:45)
[2021-11-17] MEDS: HYDROcodone/Acetaminophen 5/325 mg Tablet PO PRN ×2 (15:03)
[2021-11-17] MEDS: Cefepime 1 GM in Sodium Chloride 0.9% 100 ML IVPB SCH (16:16)
[2021-11-17 19:32] LABS: Vancomycin, Trough 9.7 ug/mL
[2021-11-17] MEDS ORDERED: VANCOMYCIN IVPB SCH (20:00)
[2021-11-17] MEDS ORDERED: Vancomycin HCl 750 MG in Sodium Chloride 0.9% 250 ML 250 ML IVPB SCH (20:00)
[2021-11-18] MEDS: Sodium Chloride 0.9% 1,000 ML IV SCH ×2 (02:27→11:35)
[2021-11-18 04:46] LABS: Anion Gap 9 mmol/L (10-20); BUN (Urea Nitrogen) 20 mg/dL (9.8-20.1); CRP (Inflammatory) 1.69 mg/dL (= or < 0.5); Calc. Creatinine Clearance 26 mL/min (70-130); Calcium 7.4 mg/dL (7.8-10.44); Carbon Dioxide 17 mmol/L (23-31); Chloride 114 mmol/L (98-107); Glucose 90 mg/dL (83-110); Potassium 3.4 mmol/L (3.5-5.1); Sodium 137 mmol/L (136-145)
[2021-11-18 07:19] LABS: #Lymphocytes 0.9 thou/uL (1.20-3.40); #Monocytes 0.3 thou/uL (0.11-0.59); #Neutrophils 2.1 thou/uL (1.40-6.50); %Basophils 0.3 % (0.0-1.0); %Eosinophils 1.2 % (0.0-10.0); %Lymphocytes 27.6 % (21.0-51.0); %Neutrophils 61.9 % (42.0-75.0); Hemoglobin 8.7 g/dL (12.0-16.0); Mean Corpuscular HGB CONC 34.1 g/dL (32.0-36.0); Mean Corpuscular Volume 94.1 fL (78.0-98.0); Mean Platelet Volume 6.9 fL (7.4-10.4); Platelet Count 134 thou/uL (130-400); RBC Distribution Width 16.4 % (11.5-14.5); Red Blood Cell (RBC) Count 2.72 mill/uL (4.20-5.40); White Blood Cell (WBC) Count 3.4 thou/uL (4.8-10.8)
[2021-11-18] MEDS: Heparin 5,000 UNITS/ML VIAL SC SCH ×3 (08:59→22:53)
[2021-11-18] MEDS: Thiamine HCl 200 MG/2 ML VIAL SLOW IVP SCH (11:35)
[2021-11-18] MEDS: Multivitamins, Adult 10 ML, Folic Acid 1 MG in Dextrose 5 %-0.45 % NaCl 1,000 ML IV SCH (16:08)
[2021-11-18] MEDS: Cefepime 1 GM in Sodium Chloride 0.9% 100 ML IVPB SCH (16:08)
[2021-11-18 19:56] LABS: Vancomycin, Random 15.3 ug/mL (See Comment)
[2021-11-18] MEDS: HYDROcodone/Acetaminophen 5/325 mg Tablet PO PRN (22:52)
[2021-11-18] MEDS: Vancomycin HCl 750 MG in Sodium Chloride 0.9% 250 ML 250 ML IVPB SCH (23:28)
[2021-11-19 05:03] LABS: #Basophils 0.1 thou/uL (0.0-0.2); #Monocytes 0.3 thou/uL (0.11-0.59); #Neutrophils 1.4 thou/uL (1.40-6.50); %Basophils 2.9 % (0.0-1.0); %Eosinophils 0.7 % (0.0-10.0); %Lymphocytes 36.3 % (21.0-51.0); %Monocytes 11.4 % (0.0-10.0); %Neutrophils 48.6 % (42.0-75.0); Hemoglobin 8.3 g/dL (12.0-16.0); Mean Corpuscular HGB CONC 32.8 g/dL (32.0-36.0); Mean Corpuscular Volume 94.6 fL (78.0-98.0); Mean Platelet Volume 6.6 fL (7.4-10.4); Platelet Count 127 thou/uL (130-400); RBC Distribution Width 16.3 % (11.5-14.5); Red Blood Cell (RBC) Count 2.69 mill/uL (4.20-5.40); White Blood Cell (WBC) Count 2.8 thou/uL (4.8-10.8)
[2021-11-19 05:25] LABS: Anion Gap 7 mmol/L (10-20); BUN (Urea Nitrogen) 13 mg/dL (9.8-20.1); CRP (Inflammatory) 0.99 mg/dL (= or < 0.5); Calc. Creatinine Clearance 26 mL/min (70-130); Calcium 7.5 mg/dL (7.8-10.44); Carbon Dioxide 19 mmol/L (23-31); Chloride 114 mmol/L (98-107); Glucose 99 mg/dL (83-110); Potassium 3.2 mmol/L (3.5-5.1); Sodium 137 mmol/L (136-145)
[2021-11-19] MEDS: Heparin 5,000 UNITS/ML VIAL SC SCH (07:40)
[2021-11-19] MEDS ORDERED: Fentanyl 100 MCG/2 ML VIAL ONE (10:24)
[2021-11-19] MEDS: 1/2 NS w/KCL 20 mEq 1,000 ML IV SCH ×4 (10:39→20:05)
[2021-11-19] MEDS: Thiamine HCl 200 MG/2 ML VIAL SLOW IVP SCH (11:07)
[2021-11-19] MEDS ORDERED: Potassium Chloride 20 MEQ TAB PO SCH (12:30)
[2021-11-19] MEDS: Cefepime 1 GM in Sodium Chloride 0.9% 100 ML IVPB SCH (16:20)
[2021-11-19] MEDS: HYDROcodone/Acetaminophen 5/325 mg Tablet PO PRN (20:04)
[2021-11-19] MEDS: Multivit, Therapeutic 1 TAB PO SCH (20:04)
[2021-11-19] MEDS: Folic Acid 1 MG TAB PO SCH (20:04)
[2021-11-19] MEDS ORDERED: Thiamine 100 MG TAB PO SCH (21:00)
[2021-11-19] MEDS ORDERED: Midodrine HCl 5 MG TAB PO SCH (21:57)
[2021-11-19] MEDS: Vancomycin HCl 750 MG in Sodium Chloride 0.9% 250 ML 250 ML IVPB SCH (22:20)
[2021-11-20] MEDS: HYDROcodone/Acetaminophen 5/325 mg Tablet PO PRN (02:58)
[2021-11-20] MEDS: Thiamine 100 MG TAB PO SCH (08:30)
[2021-11-20 08:50] LABS: #Lymphocytes 1.1 thou/uL (1.20-3.40); #Monocytes 0.3 thou/uL (0.11-0.59); #Neutrophils 0.8 thou/uL (1.40-6.50); %Basophils 0.6 % (0.0-1.0); %Eosinophils 1.4 % (0.0-10.0); %Lymphocytes 49.6 % (21.0-51.0); %Neutrophils 36.4 % (42.0-75.0); Hemoglobin 8.7 g/dL (12.0-16.0); Mean Corpuscular HGB CONC 33.8 g/dL (32.0-36.0); Mean Corpuscular Hemoglobin 31.8 pg (27.0-31.0); Mean Corpuscular Volume 94.1 fL (78.0-98.0); Mean Platelet Volume 6.9 fL (7.4-10.4); Platelet Count 132 thou/uL (130-400); RBC Distribution Width 16.4 % (11.5-14.5); Red Blood Cell (RBC) Count 2.74 mill/uL (4.20-5.40); White Blood Cell (WBC) Count 2.2 thou/uL (4.8-10.8)
[2021-11-20] MEDS: 1/2 NS w/KCL 20 mEq 1,000 ML IV SCH ×2 (08:50→22:40)
[2021-11-20] MEDS ORDERED: Loperamide HCl 2 MG CAP PO SCH ×2 (09:15→15:00)
[2021-11-20 09:17] LABS: Phosphorus 2.5 mg/dL (2.3-4.7)
[2021-11-20 09:19] LABS: ALT (SGPT) 8 U/L (8-55); AST (SGOT) 18 U/L (5-34); Albumin 2.5 g/dL (3.4-4.8); Alkaline Phosphatase 83 U/L (40-110); Anion Gap 9 mmol/L (10-20); BUN (Urea Nitrogen) 12 mg/dL (9.8-20.1); Bilirubin, Total 0.2 mg/dL (0.2-1.2); Calc. Creatinine Clearance 26 mL/min (70-130); Carbon Dioxide 16 mmol/L (23-31); Chloride 111 mmol/L (98-107); Globulin 2.3 g/dL (2.4-3.5); Glucose 77 mg/dL (83-110); Magnesium 1.2 mg/dL (1.6-2.6); Potassium 4.4 mmol/L (3.5-5.1); Protein, Total 4.8 g/dL (5.8-8.1); Sodium 132 mmol/L (136-145)
[2021-11-20] MEDS ORDERED: Magnesium Sulfate 4 GM in Sodium Chloride 0.9% 250 ML 250 ML IVPB SCH (09:45)
[2021-11-20] MEDS ORDERED: Potassium Chloride 20 MEQ TAB PO SCH (09:45)
[2021-11-20] MEDS ORDERED: Loperamide HCl 2 MG CAP PO PRN (10:12)
[2021-11-20] MEDS: Sodium Bicarbonate 150 MEQ in Dextrose 5% in Water 1,000 ML IV SCH ×2 (11:49→18:03)
[2021-11-20] MEDS: Potassium Chloride 20 MEQ TAB PO SCH ×2 (13:38→18:02)
[2021-11-20] MEDS: Multivit, Therapeutic 1 TAB PO SCH (21:30)
[2021-11-20] MEDS: Folic Acid 1 MG TAB PO SCH (21:30)
[2021-11-20] MEDS ORDERED: Sodium Chloride 0.9% 500 ML IV SCH ×2 (21:30→23:15)
[2021-11-20] MEDS: Heparin 5,000 UNITS/ML VIAL SC SCH (21:31)
[2021-11-20] MEDS ORDERED: Midodrine HCl 5 MG TAB PO SCH (23:30)
[2021-11-21] MEDS: HYDROcodone/Acetaminophen 5/325 mg Tablet PO PRN ×2 (00:25→22:08)
[2021-11-21] MEDS: Thiamine 100 MG TAB PO SCH (08:27)
[2021-11-21] MEDS ORDERED: Midodrine HCl 5 MG TAB PO SCH (09:00)
[2021-11-21] MEDS: Heparin 5,000 UNITS/ML VIAL SC SCH ×2 (09:14→20:04)
[2021-11-21] MEDS ORDERED: Loperamide HCl 2 MG CAP PO SCH (09:30)
[2021-11-21 09:50] LABS: #Lymphocytes 0.7 thou/uL (1.20-3.40); #Monocytes 0.3 thou/uL (0.11-0.59); %Basophils 0.7 % (0.0-1.0); %Eosinophils 1.1 % (0.0-10.0); %Lymphocytes 36.3 % (21.0-51.0); %Monocytes 12.9 % (0.0-10.0); Hemoglobin 9.6 g/dL (12.0-16.0); Mean Corpuscular HGB CONC 33.3 g/dL (32.0-36.0); Mean Corpuscular Hemoglobin 31.3 pg (27.0-31.0); Mean Platelet Volume 7.5 fL (7.4-10.4); Platelet Count 137 thou/uL (130-400); RBC Distribution Width 16.7 % (11.5-14.5); Red Blood Cell (RBC) Count 3.08 mill/uL (4.20-5.40); White Blood Cell (WBC) Count 2.1 thou/uL (4.8-10.8)
[2021-11-21 10:05] LABS: Anion Gap 12 mmol/L (10-20); BUN (Urea Nitrogen) 12 mg/dL (9.8-20.1); Calc. Creatinine Clearance 26 mL/min (70-130); Calcium 7.8 mg/dL (7.8-10.44); Carbon Dioxide 19 mmol/L (23-31); Chloride 108 mmol/L (98-107); Glucose 87 mg/dL (83-110); Magnesium 2.1 mg/dL (1.6-2.6); Sodium 134 mmol/L (136-145)
[2021-11-21 10:55] VITALS: BMI 12.9
[2021-11-21] MEDS: 1/2 NS w/KCL 20 mEq 1,000 ML IV SCH (13:49)
[2021-11-21] MEDS: Loperamide HCl 2 MG CAP PO SCH ×2 (15:04→20:04)
[2021-11-21] MEDS ORDERED: Dextrose 5% in Water 1,000 ML IV SCH (19:15)
[2021-11-21] MEDS: Folic Acid 1 MG TAB PO SCH (20:04)
[2021-11-21] MEDS: Multivit, Therapeutic 1 TAB PO SCH (20:04)
[2021-11-21] MEDS ORDERED: Mirtazapine 15 MG TAB PO SCH (21:00)
[2021-11-22] MEDS: Heparin 5,000 UNITS/ML VIAL SC SCH (08:04)
[2021-11-22] MEDS: Thiamine 100 MG TAB PO SCH (08:04)
[2021-11-22] MEDS: Loperamide HCl 2 MG CAP PO SCH (08:04)
[2021-11-22 12:22] VITALS: BP 102/64; TEMP 98.8
== END 2021-11-22 15:08 | disposition home or self-care (01) | DRG 698 ==
LOC: ERS 16:29 → ERHOLD 18:17 → CCU 22:28 → T4-A 11-18 14:21
PROVIDERS: ADMIT Internal Medicine; ATTEND Internal Medicine
PROC: 3E033XZ Introduction of Vasopressor into Peripheral Vein, Percutaneous Approach (ICD-10-PCS; principal; 2021-11-16)
PROC: 8E0ZXY6 Isolation (ICD-10-PCS; 2021-11-16)
PROC: 0T25X0Z Change Drainage Device in Kidney, External Approach (ICD-10-PCS; 2021-11-19)
DX: N99.522 Malfunction of incontinent external stoma of urinary tract (principal); U07.1 COVID-19; R57.1 Hypovolemic shock; R65.21 Severe sepsis with septic shock; A41.02 Sepsis due to Methicillin resistant Staphylococcus aureus; A41.51 Sepsis due to Escherichia coli [E. coli]; E43 Unspecified severe protein-calorie malnutrition; N17.9 Acute kidney failure, unspecified; E87.1 Hypo-osmolality and hyponatremia; E87.2 Acidosis; R64 Cachexia; N39.0 Urinary tract infection, site not specified; Z68.1 Body mass index [BMI] 19.9 or less, adult; N99.521 Infection of incontinent external stoma of urinary tract; E87.8 Other disorders of electrolyte and fluid balance, not elsewhere classified; Y84.6 Urinary catheterization as the cause of abnormal reaction of the patient, or of later complication, without mention of misadventure at the time of the procedure; F17.210 Nicotine dependence, cigarettes, uncomplicated; E86.0 Dehydration; E87.5 Hyperkalemia; N18.30 Chronic kidney disease, stage 3 unspecified; D53.1 Other megaloblastic anemias, not elsewhere classified; D63.1 Anemia in chronic kidney disease; E83.42 Hypomagnesemia; Z85.43 Personal history of malignant neoplasm of ovary; Z90.710 Acquired absence of both cervix and uterus; Z93.2 Ileostomy status; Z85.038 Personal history of other malignant neoplasm of large intestine; Z79.899 Other long term (current) drug therapy
CPT/HCPCS: 0240U; 36415; 50431; 50436; 71045; 76770; 80048; 80053; 80202; 81015; 83605; 83735; 83880; 84100; 84484; 85025; 85379; 85610; 85730; 86140; 87040; 87086; 93005; 94760; 96365; 96368; 96375; C1729; J0692; J1642; J1644; J3010; J3370; J3411; J3475; J3480; J3490; J7030; J7042; J7050; J7070

== ENCOUNTER 2021-11-24 17:16 | Inpatient (IN) | payer MEDICARE ==
[2021-11-24] MEDS ORDERED: Morphine 4 MG/ML VIAL ONE (18:01)
[2021-11-24 18:57] LABS: #Lymphocytes 0.8 thou/uL (1.20-3.40); #Monocytes 0.7 thou/uL (0.11-0.59); #Neutrophils 4.4 thou/uL (1.40-6.50); %Basophils 0.4 % (0.0-1.0); %Eosinophils 0.2 % (0.0-10.0); %Lymphocytes 12.9 % (21.0-51.0); %Monocytes 11.9 % (0.0-10.0); %Neutrophils 74.5 % (42.0-75.0); Hemoglobin 10.5 g/dL (12.0-16.0); Mean Corpuscular HGB CONC 33.5 g/dL (32.0-36.0); Mean Corpuscular Hemoglobin 31.9 pg (27.0-31.0); Mean Corpuscular Volume 95.3 fL (78.0-98.0); Platelet Count 179 thou/uL (130-400); RBC Distribution Width 16.6 % (11.5-14.5); Red Blood Cell (RBC) Count 3.29 mill/uL (4.20-5.40)
[2021-11-24 19:20] LABS: ALT (SGPT) 14 U/L (8-55); AST (SGOT) 22 U/L (5-34); Alkaline Phosphatase 112 U/L (40-110); Anion Gap 25 mmol/L (10-20); BUN (Urea Nitrogen) 42 mg/dL (9.8-20.1); Bilirubin, Total 0.4 mg/dL (0.2-1.2); Calc. Creatinine Clearance 0 mL/min (70-130); Calcium 8.9 mg/dL (7.8-10.44); Carbon Dioxide 13 mmol/L (23-31); Chloride 96 mmol/L (98-107); Globulin 3.2 g/dL (2.4-3.5); Glucose 88 mg/dL (83-110); Protein, Total 6.2 g/dL (5.8-8.1); Sodium 128 mmol/L (136-145)
[2021-11-24] MEDS ORDERED: Acetaminophen 500 MG TAB ONE (19:29)
[2021-11-24 19:37] LABS: Bacteria/HPF 4+ HPF (None Seen); Bilirubin Negative (Negative); Blood, Urine 2+ (Negative); Clarity Extra Turbid (Clear); Glucose, Urine (Dipstick) Normal (Negative); Ketone, Urine Negative (Negative); Leukocyte 500 Leu/uL (Negative); Nitrite Negative (Negative); Protein, Urine (Dipstick) 100 mg/dL (Neg-Trace); RBC/HPF Greater than 50 HPF (0-3); Squamous Epithelial 0-3 HPF (0-3); Urobilinogen Normal mg/dL (Less than 2); WBC/HPF Greater than 50 HPF (0-3)
[2021-11-24 19:45] LABS: Other Microscopic Description Less than 2 mL rec'd; Yeast-Budding 2+ HPF (None Seen); Yeast-Hyphae 1+ HPF (None Seen)
[2021-11-24] MEDS ORDERED: cefTRIAXone\\ROCEPHIN 500 MG VIAL ONE (21:02)
[2021-11-24 21:48] LABS: Anion Gap 25 mmol/L (10-20); BUN (Urea Nitrogen) 42 mg/dL (9.8-20.1); Calc. Creatinine Clearance 0 mL/min (70-130); Calcium 9.1 mg/dL (7.8-10.44); Carbon Dioxide 14 mmol/L (23-31); Chloride 97 mmol/L (98-107); Glucose 71 mg/dL (83-110); Sodium 130 mmol/L (136-145)
[2021-11-24] MEDS ORDERED: Ondansetron PF 4 MG/2 ML Vial IVP PRN (22:01)
[2021-11-24] MEDS ORDERED: Acetaminophen 325 MG TAB PO PRN (22:01)
[2021-11-24] MEDS ORDERED: Sodium Chloride 0.9% 1,000 ML IV SCH (22:15)
[2021-11-24] MEDS ORDERED: Dextrose 50% Abboject 50 ML SYRINGE SLOW IVP PRN (22:25)
[2021-11-24] MEDS ORDERED: Dextrose 5 %-0.45 % NaCl 1,000 ML IV SCH (22:30)
[2021-11-24] MEDS ORDERED: Sodium Bicarb 50 MEQ/50 ML Abboject 8.4% SYRINGE IVP SCH (22:45)
[2021-11-24] MEDS ORDERED: Insulin Regular 300 UNITS/3 ML VIAL IVP SCH (22:45)
[2021-11-24] MEDS ORDERED: Sodium Chloride 0.9% 500 ML IV SCH (22:45)
[2021-11-24] MEDS ORDERED: Calcium Gluc 4.6 MEQ/10 ML (100 MG/ML) SLOW IVP SCH (22:45)
[2021-11-24] MEDS ORDERED: Insulin Regular 300 UNITS/3 ML VIAL ONE (23:51)
[2021-11-24] MEDS ORDERED: Calcium Gluc 4.6 MEQ/10 ML (100 MG/ML) ONE (23:51)
[2021-11-24] MEDS ORDERED: Dextrose 50% Abboject 50 ML SYRINGE ONE (23:51)
[2021-11-24] MEDS ORDERED: Sodium Bicarb 50 MEQ/50 ML Abboject 8.4% SYRINGE ONE (23:52)
[2021-11-25 00:16] LABS: SARS-CoV-2 NAA Rapid Test DETECTED (NotDetected)
[2021-11-25] MEDS ORDERED: Dextrose 50% Abboject 50 ML SYRINGE ONE ×2 (00:48→00:49)
[2021-11-25] MEDS ORDERED: Sodium Chloride 0.9% 500 ML IV SCH (02:45)
[2021-11-25] MEDS: Sodium Chloride 0.9% 1,000 ML IV SCH (04:48)
[2021-11-25 05:00] LABS: #Lymphocytes 0.8 thou/uL (1.20-3.40); #Monocytes 0.5 thou/uL (0.11-0.59); #Neutrophils 2.3 thou/uL (1.40-6.50); %Eosinophils 0.5 % (0.0-10.0); %Lymphocytes 21.8 % (21.0-51.0); %Monocytes 14.8 % (0.0-10.0); Hemoglobin 10.2 g/dL (12.0-16.0); Mean Corpuscular HGB CONC 34.7 g/dL (32.0-36.0); Mean Corpuscular Volume 92.1 fL (78.0-98.0); Mean Platelet Volume 7.9 fL (7.4-10.4); Platelet Count 149 thou/uL (130-400); RBC Distribution Width 16.3 % (11.5-14.5); Red Blood Cell (RBC) Count 3.18 mill/uL (4.20-5.40); White Blood Cell (WBC) Count 3.6 thou/uL (4.8-10.8)
[2021-11-25 05:16] LABS: Anion Gap 16 mmol/L (10-20); BUN (Urea Nitrogen) 38 mg/dL (9.8-20.1); Calc. Creatinine Clearance 0 mL/min (70-130); Calcium 8.2 mg/dL (7.8-10.44); Carbon Dioxide 19 mmol/L (23-31); Chloride 101 mmol/L (98-107); Glucose 306 mg/dL (83-110); Potassium 4.2 mmol/L (3.5-5.1); Sodium 132 mmol/L (136-145)
[2021-11-25] MEDS: Fluconazole In NaCl,Iso-Osm 100 MG in Admixture Fee 1 EACH IVPB SCH (07:20)
[2021-11-25] MEDS ORDERED: Heparin 5,000 UNITS/ML VIAL SC SCH (09:00)
[2021-11-25] MEDS ORDERED: Folic Acid 1 MG TAB ONE (11:07)
[2021-11-25] MEDS ORDERED: Thiamine 100 MG TAB ONE (11:07)
[2021-11-25] MEDS: Heparin 5,000 UNITS/ML VIAL SC SCH ×2 (11:11→19:48)
[2021-11-25] MEDS: Folic Acid 1 MG TAB PO SCH (11:31)
[2021-11-25] MEDS: Mirtazapine 15 MG TAB PO SCH (11:31)
[2021-11-25] MEDS: Thiamine 100 MG TAB PO SCH (11:31)
[2021-11-25] MEDS ORDERED: Acetaminophen 325 MG TAB ONE (11:33)
[2021-11-25] MEDS: HYDROcodone/Acetaminophen 10/325 mg Tablet PO PRN (19:48)
[2021-11-25] MEDS ORDERED: cefTRIAXone\\ROCEPHIN 1 GM in Sodium Chloride 0.9% 100 ML IVPB SCH (21:00)
[2021-11-26] MEDS: Sodium Chloride 0.9% 1,000 ML IV SCH ×4 (00:46→16:34)
[2021-11-26] MEDS: HYDROcodone/Acetaminophen 10/325 mg Tablet PO PRN ×3 (02:47→22:06)
[2021-11-26 02:55] VITALS: BMI 13.1
[2021-11-26] MEDS: Fluconazole In NaCl,Iso-Osm 100 MG in Admixture Fee 1 EACH IVPB SCH (06:24)
[2021-11-26 06:40] LABS: Band 1 % (5-11); Hemoglobin 8.2 g/dL (12.0-16.0); Hypochromia SLIGHT = 6-15 cells (100X) (0-5/hpf); Lymphocytes 30 % (21-51); MDiff Complete? YES; Mean Corpuscular HGB CONC 32.5 g/dL (32.0-36.0); Mean Corpuscular Hemoglobin 32.3 pg (27.0-31.0); Mean Corpuscular Volume 99.4 fL (78.0-98.0); Mean Platelet Volume 7.1 fL (7.4-10.4); Monocytes 4 % (0-10); Neutrophil 65 % (42-75); Platelet Count 165 thou/uL (130-400); Platelet Morphology Comment Appears Adequate; RBC Distribution Width 16.4 % (11.5-14.5); Red Blood Cell (RBC) Count 2.55 mill/uL (4.20-5.40); White Blood Cell (WBC) Count 4.4 thou/uL (4.8-10.8)
[2021-11-26 06:47] LABS: Anion Gap 14 mmol/L (10-20); BUN (Urea Nitrogen) 30 mg/dL (9.8-20.1); Calc. Creatinine Clearance 19 mL/min (70-130); Calcium 7.7 mg/dL (7.8-10.44); Carbon Dioxide 16 mmol/L (23-31); Chloride 109 mmol/L (98-107); Glucose 81 mg/dL (83-110); Magnesium 1.6 mg/dL (1.6-2.6); Potassium 3.7 mmol/L (3.5-5.1); Sodium 135 mmol/L (136-145)
[2021-11-26] MEDS: Mirtazapine 15 MG TAB PO SCH (10:05)
[2021-11-26] MEDS: Thiamine 100 MG TAB PO SCH (10:05)
[2021-11-26] MEDS: Heparin 5,000 UNITS/ML VIAL SC SCH ×2 (10:05→20:40)
[2021-11-26] MEDS: Folic Acid 1 MG TAB PO SCH (10:06)
[2021-11-27] MEDS: Sodium Chloride 0.9% 1,000 ML IV SCH ×6 (00:05→21:01)
[2021-11-27 05:43] LABS: #Eosinphils 0.1 thou/uL (0.0-0.7); #Lymphocytes 1.6 thou/uL (1.20-3.40); #Monocytes 0.7 thou/uL (0.11-0.59); #Neutrophils 2.5 thou/uL (1.40-6.50); %Basophils 0.2 % (0.0-1.0); %Eosinophils 1.6 % (0.0-10.0); %Lymphocytes 32.4 % (21.0-51.0); %Neutrophils 51.7 % (42.0-75.0); Hemoglobin 10.4 g/dL (12.0-16.0); Mean Corpuscular Hemoglobin 31.4 pg (27.0-31.0); Mean Corpuscular Volume 98.2 fL (78.0-98.0); Mean Platelet Volume 6.8 fL (7.4-10.4); Platelet Count 165 thou/uL (130-400); RBC Distribution Width 16.6 % (11.5-14.5); Red Blood Cell (RBC) Count 3.31 mill/uL (4.20-5.40); White Blood Cell (WBC) Count 4.9 thou/uL (4.8-10.8)
[2021-11-27] MEDS: Fluconazole In NaCl,Iso-Osm 100 MG in Admixture Fee 1 EACH IVPB SCH (06:00)
[2021-11-27] MEDS: HYDROcodone/Acetaminophen 10/325 mg Tablet PO PRN (06:01)
[2021-11-27 06:07] LABS: Anion Gap 14 mmol/L (10-20); BUN (Urea Nitrogen) 18 mg/dL (9.8-20.1); Calc. Creatinine Clearance 27 mL/min (70-130); Calcium 7.9 mg/dL (7.8-10.44); Carbon Dioxide 12 mmol/L (23-31); Chloride 115 mmol/L (98-107); Glucose 75 mg/dL (83-110); Potassium 4.7 mmol/L (3.5-5.1); Sodium 136 mmol/L (136-145)
[2021-11-27] MEDS: Mirtazapine 15 MG TAB PO SCH (09:55)
[2021-11-27] MEDS: Multivit, Therapeutic 1 TAB PO SCH (09:55)
[2021-11-27] MEDS: Folic Acid 1 MG TAB PO SCH (09:56)
[2021-11-27] MEDS: Thiamine 100 MG TAB PO SCH (09:56)
[2021-11-27] MEDS: Heparin 5,000 UNITS/ML VIAL SC SCH ×2 (09:57→20:06)
[2021-11-27] MEDS ORDERED: cefTRIAXone\\ROCEPHIN 500 MG in Sodium Chloride 0.9% 100 ML IVPB SCH (16:00)
[2021-11-27] MEDS ORDERED: Mirtazapine 15 MG TAB PO SCH (21:00)
[2021-11-28] MEDS: HYDROcodone/Acetaminophen 10/325 mg Tablet PO PRN ×2 (01:19→05:12)
[2021-11-28] MEDS: Sodium Chloride 0.9% 1,000 ML IV SCH (04:16)
[2021-11-28] MEDS: Fluconazole In NaCl,Iso-Osm 100 MG in Admixture Fee 1 EACH IVPB SCH (05:12)
[2021-11-28] MEDS: Folic Acid 1 MG TAB PO SCH (09:05)
[2021-11-28] MEDS: Multivit, Therapeutic 1 TAB PO SCH (09:05)
[2021-11-28] MEDS: Thiamine 100 MG TAB PO SCH (09:05)
[2021-11-28] MEDS: Heparin 5,000 UNITS/ML VIAL SC SCH (09:05)
[2021-11-28 09:25] VITALS: BP 91/59; TEMP 97.7
[2021-11-29] MEDS ORDERED: FLU VACC QS2021-22(65YR UP)/PF 240 MCG/0.7 ML SYRINGE IM ONE (09:00)
== END 2021-11-28 12:26 | disposition home or self-care (01) | DRG 682 ==
LOC: ERS 17:16 → ERHOLD 22:01 → 2SW 11-25 18:55 → T4-B 11-27 14:14
PROVIDERS: ADMIT Internal Medicine; ATTEND Family Medicine
DX: N17.9 Acute kidney failure, unspecified (principal); U07.1 COVID-19; J12.82 Pneumonia due to coronavirus disease 2019; E43 Unspecified severe protein-calorie malnutrition; S22.42XA Multiple fractures of ribs, left side, initial encounter for closed fracture; E87.2 Acidosis; E87.1 Hypo-osmolality and hyponatremia; R64 Cachexia; Z68.1 Body mass index [BMI] 19.9 or less, adult; B37.49 Other urogenital candidiasis; E87.5 Hyperkalemia; D64.9 Anemia, unspecified; W18.30XA Fall on same level, unspecified, initial encounter; F17.210 Nicotine dependence, cigarettes, uncomplicated; E86.0 Dehydration; N18.9 Chronic kidney disease, unspecified; I12.9 Hypertensive chronic kidney disease with stage 1 through stage 4 chronic kidney disease, or unspecified chronic kidney disease; Z23 Encounter for immunization; Z85.038 Personal history of other malignant neoplasm of large intestine; Z85.43 Personal history of malignant neoplasm of ovary; Z90.710 Acquired absence of both cervix and uterus; Z93.2 Ileostomy status; Z98.51 Tubal ligation status; Z88.8 Allergy status to other drugs, medicaments and biological substances; Z79.899 Other long term (current) drug therapy
CPT/HCPCS: 36415; 70450; 71045; 71260; 72170; 74177; 80048; 80053; 81003; 81015; 83735; 85025; 87077; 87086; 87186; 93005; 96374; 96375; J0610; J0696; J1450; J1642; J1644; J1815; J2270; J3490; J7030; J7042; J7050; U0002

== ENCOUNTER 2022-01-10 08:07 | Day surgery (SDC) | payer MEDICARE ==
[2022-01-07 15:25] VITALS: BMI 19.3
[2022-01-10 08:55] VITALS: TEMP 97.5
[2022-01-10 11:46] VITALS: BP 111/61
== END 2022-01-10 11:15 | disposition home or self-care (01) ==
LOC: SPEC 08:07
PROVIDERS: ATTEND Urology
DX: N13.1 Hydronephrosis with ureteral stricture, not elsewhere classified (principal); F17.210 Nicotine dependence, cigarettes, uncomplicated; C18.9 Malignant neoplasm of colon, unspecified; D64.9 Anemia, unspecified; Z88.8 Allergy status to other drugs, medicaments and biological substances
CPT/HCPCS: 50431; 50436; 74425; C1729

== ENCOUNTER 2022-03-11 08:05 | Day surgery (SDC) | payer MEDICARE ==
[2022-03-11 10:13] VITALS: BP 93/59; TEMP 99.6; BMI 12.7
[2022-03-11] MEDS ORDERED: Iopamidol 300 61% 50 ML VIAL FS ONE (10:23)
== END 2022-03-11 09:45 | disposition home or self-care (01) ==
LOC: SPEC 08:05
PROVIDERS: ATTEND Urology
PROC: 0T25X0Z Change Drainage Device in Kidney, External Approach (ICD-10-PCS; principal; 2022-03-11)
DX: Z46.6 Encounter for fitting and adjustment of urinary device (principal); C18.9 Malignant neoplasm of colon, unspecified; C79.9 Secondary malignant neoplasm of unspecified site; N13.5 Crossing vessel and stricture of ureter without hydronephrosis; Z79.2 Long term (current) use of antibiotics; Z79.899 Other long term (current) drug therapy; Z88.8 Allergy status to other drugs, medicaments and biological substances
CPT/HCPCS: 50431; 50436; 80053; 82248; 82378; 83615; 84100; 84550; C1729; Q9967

== ENCOUNTER 2022-03-28 19:10 | Inpatient (IN) | payer MEDICARE ==
[2022-03-28 19:42] LABS: Hemoglobin 13.5 g/dL (12.0-16.0); Mean Corpuscular HGB CONC 31.7 g/dL (32.0-36.0); Mean Corpuscular Hemoglobin 29.4 pg (27.0-31.0); Mean Corpuscular Volume 92.7 fL (78.0-98.0); Platelet Count 326 thou/uL (130-400); RBC Distribution Width 14.6 % (11.5-14.5); Red Blood Cell (RBC) Count 4.59 mill/uL (4.20-5.40); White Blood Cell (WBC) Count 13.3 thou/uL (4.8-10.8)
[2022-03-28 19:58] LABS: Bacteria/HPF 4+ HPF (None Seen); Bilirubin Negative (Negative); Blood, Urine 3+ (Negative); Clarity Extra Turbid (Clear); Glucose, Urine (Dipstick) Normal (Negative); Ketone, Urine Negative (Negative); Leukocyte 500 Leu/uL (Negative); Nitrite 2+ (Negative); Protein, Urine (Dipstick) 200 mg/dL (Neg-Trace); RBC/HPF Greater than 50 HPF (0-3); Renal Epithelial 0-3 HPF (None Seen); Urobilinogen Normal mg/dL (Less than 2); WBC/HPF Greater than 50 HPF (0-3); pH, Urine 6.5 (5.0-9.0)
[2022-03-28] MEDS ORDERED: cefTRIAXone\\ROCEPHIN 2 GM VIAL ONE (19:58)
[2022-03-28 20:05] LABS: Band 4 % (5-11); Lymphocytes 10 % (21-51); MDiff Complete? YES; Metamyelocyte 1 % (0-0); Monocytes 4 % (0-10); Neutrophil 81 % (42-75); Platelet Morphology Comment Appears Adequate; RBC Morphology Normal
[2022-03-28 20:12] LABS: Albumin 3.8 g/dL (3.4-4.8); Anion Gap 14 mmol/L (10-20); BUN (Urea Nitrogen) 46 mg/dL (9.8-20.1); Bilirubin, Total 0.5 mg/dL (0.2-1.2); Calc. Creatinine Clearance 0 mL/min (70-130); Calcium 10.3 mg/dL (7.8-10.44); Carbon Dioxide 20 mmol/L (23-31); Chloride 100 mmol/L (98-107); Globulin 4.7 g/dL (2.4-3.5); Glucose 108 mg/dL (83-110); Protein, Total 8.5 g/dL (5.8-8.1); Sodium 129 mmol/L (136-145)
[2022-03-28 20:13] LABS: ALT (SGPT) 14 U/L (8-55); AST (SGOT) 17 U/L (5-34); Alkaline Phosphatase 228 U/L (40-110)
[2022-03-28] MEDS ORDERED: Azithromycin 500 MG VIAL ONE (20:21)
[2022-03-28] MEDS ORDERED: Acetaminophen 325 MG TAB PO PRN (21:00)
[2022-03-28] MEDS ORDERED: Ondansetron ODT 4 MG TAB SL PRN (21:00)
[2022-03-28] MEDS ORDERED: Ondansetron PF 4 MG/2 ML Vial IVP PRN (21:00)
[2022-03-28] MEDS ORDERED: Guaifenesin DM 100-10/5 ML UDCUP PO PRN (21:29)
[2022-03-28] MEDS ORDERED: HYDROcodone/Acetaminophen 5/325 mg Tablet PO PRN (21:29)
[2022-03-28] MEDS ORDERED: Loperamide HCl 2 MG CAP PO PRN (21:29)
[2022-03-28] MEDS ORDERED: Zolpidem Tartrate 5 MG TAB PO PRN (21:29)
[2022-03-28 23:19] VITALS: BMI 13.2
[2022-03-28] MEDS: Nicotine 21 MG PATCH TD SCH (23:52)
[2022-03-28] MEDS: Dextrose 5 % And 0.9 % NaCl 1,000 ML IV SCH (23:52)
[2022-03-29 08:28] LABS: #Eosinphils 0.1 thou/uL (0.0-0.7); #Lymphocytes 0.9 thou/uL (1.20-3.40); #Monocytes 0.6 thou/uL (0.11-0.59); #Neutrophils 5.2 thou/uL (1.40-6.50); %Basophils 0.3 % (0.0-1.0); %Eosinophils 0.8 % (0.0-10.0); %Lymphocytes 13.9 % (21.0-51.0); %Monocytes 8.9 % (0.0-10.0); %Neutrophils 76.2 % (42.0-75.0); Hemoglobin 11.1 g/dL (12.0-16.0); Mean Corpuscular HGB CONC 30.7 g/dL (32.0-36.0); Mean Corpuscular Volume 94.5 fL (78.0-98.0); Mean Platelet Volume 6.4 fL (7.4-10.4); Platelet Count 235 thou/uL (130-400); RBC Distribution Width 14.4 % (11.5-14.5); Red Blood Cell (RBC) Count 3.82 mill/uL (4.20-5.40); White Blood Cell (WBC) Count 6.8 thou/uL (4.8-10.8)
[2022-03-29] MEDS: guaiFENesin ER 600 MG TAB PO SCH ×2 (08:35→21:10)
[2022-03-29] MEDS: Dextrose 5 % And 0.9 % NaCl 1,000 ML IV SCH (08:36)
[2022-03-29] MEDS: Midodrine HCl 5 MG TAB PO SCH ×2 (08:36→21:10)
[2022-03-29] MEDS: Enoxaparin Sodium 30 MG/0.3 ML SYRINGE SC SCH (08:36)
[2022-03-29] MEDS: Megestrol Acetate 800 MG/20 ML UDCUP PO SCH (08:36)
[2022-03-29] MEDS: Famotidine 20 MG TAB PO SCH (08:36)
[2022-03-29] MEDS: Mirtazapine 15 MG TAB PO SCH (08:36)
[2022-03-29 08:47] LABS: ALT (SGPT) 9 U/L (8-55); AST (SGOT) 8 U/L (5-34); Albumin 2.9 g/dL (3.4-4.8); Alkaline Phosphatase 152 U/L (40-110); Anion Gap 14 mmol/L (10-20); BUN (Urea Nitrogen) 28 mg/dL (9.8-20.1); Bilirubin, Total 0.3 mg/dL (0.2-1.2); Calc. Creatinine Clearance 29 mL/min (70-130); Calcium 8.7 mg/dL (7.8-10.44); Carbon Dioxide 17 mmol/L (23-31); Chloride 108 mmol/L (98-107); Globulin 3.3 g/dL (2.4-3.5); Glucose 114 mg/dL (83-110); Protein, Total 6.2 g/dL (5.8-8.1); Sodium 135 mmol/L (136-145)
[2022-03-29] MEDS ORDERED: traMADol HCl 50 MG TAB PO PRN (09:38)
[2022-03-29 16:23] LABS: SARS-CoV-2 PCR by NAA Not Detected (NotDetected)
[2022-03-29] MEDS ORDERED: cefTRIAXone\\ROCEPHIN 2 GM in Sodium Chloride 0.9% 100 ML IVPB SCH (20:00)
[2022-03-29] MEDS: Nicotine 21 MG PATCH TD SCH ×2 (21:11→21:13)
[2022-03-30 06:51] LABS: #Eosinphils 0.1 thou/uL (0.0-0.7); #Lymphocytes 1.1 thou/uL (1.20-3.40); #Monocytes 0.9 thou/uL (0.11-0.59); #Neutrophils 6.3 thou/uL (1.40-6.50); %Basophils 0.4 % (0.0-1.0); %Eosinophils 0.7 % (0.0-10.0); %Lymphocytes 12.9 % (21.0-51.0); %Monocytes 10.2 % (0.0-10.0); %Neutrophils 75.7 % (42.0-75.0); Hemoglobin 10.3 g/dL (12.0-16.0); Mean Corpuscular HGB CONC 33.2 g/dL (32.0-36.0); Mean Corpuscular Volume 93.6 fL (78.0-98.0); Mean Platelet Volume 6.6 fL (7.4-10.4); Platelet Count 253 thou/uL (130-400); RBC Distribution Width 14.9 % (11.5-14.5); Red Blood Cell (RBC) Count 3.32 mill/uL (4.20-5.40); White Blood Cell (WBC) Count 8.4 thou/uL (4.8-10.8)
[2022-03-30 07:18] LABS: Anion Gap 13 mmol/L (10-20); BUN (Urea Nitrogen) 12 mg/dL (9.8-20.1); Calc. Creatinine Clearance 33 mL/min (70-130); Calcium 8.8 mg/dL (7.8-10.44); Carbon Dioxide 18 mmol/L (23-31); Chloride 110 mmol/L (98-107); Glucose 110 mg/dL (83-110); Potassium 3.8 mmol/L (3.5-5.1); Sodium 137 mmol/L (136-145)
[2022-03-30] MEDS: Mirtazapine 15 MG TAB PO SCH (08:25)
[2022-03-30] MEDS: guaiFENesin ER 600 MG TAB PO SCH (08:25)
[2022-03-30] MEDS: Enoxaparin Sodium 30 MG/0.3 ML SYRINGE SC SCH (08:25)
[2022-03-30] MEDS: Midodrine HCl 5 MG TAB PO SCH (08:25)
[2022-03-30] MEDS: Famotidine 20 MG TAB PO SCH (08:25)
[2022-03-30] MEDS: Megestrol Acetate 800 MG/20 ML UDCUP PO SCH (08:25)
[2022-03-30 13:29] VITALS: BP 106/65; TEMP 97.5
== END 2022-03-30 13:04 | disposition home health service (06) | DRG 871 ==
LOC: ERS 19:10 → T4-B 20:46
PROVIDERS: ADMIT Internal Medicine; ATTEND Internal Medicine
DX: A41.9 Sepsis, unspecified organism (principal); J18.9 Pneumonia, unspecified organism; E43 Unspecified severe protein-calorie malnutrition; N17.9 Acute kidney failure, unspecified; E87.2 Acidosis; E87.1 Hypo-osmolality and hyponatremia; Z68.1 Body mass index [BMI] 19.9 or less, adult; Z20.822 Contact with and (suspected) exposure to COVID-19; R65.20 Severe sepsis without septic shock; E87.6 Hypokalemia; R63.0 Anorexia; F17.210 Nicotine dependence, cigarettes, uncomplicated; E87.5 Hyperkalemia; R82.81 Pyuria; E88.09 Other disorders of plasma-protein metabolism, not elsewhere classified; N18.2 Chronic kidney disease, stage 2 (mild); Z85.038 Personal history of other malignant neoplasm of large intestine; Z85.43 Personal history of malignant neoplasm of ovary; Z90.710 Acquired absence of both cervix and uterus; Z88.0 Allergy status to penicillin; Z88.1 Allergy status to other antibiotic agents; Z79.899 Other long term (current) drug therapy; Z93.2 Ileostomy status; Z98.890 Other specified postprocedural states; Z83.6 Family history of other diseases of the respiratory system
CPT/HCPCS: 36415; 36416; 71045; 80048; 80053; 81003; 81015; 83605; 85025; 87040; 87070; 87077; 87086; 87186; 87205; 87804; 96365; 96367; J0456; J0696; J1650; J1956; J3490; J7042; U0003; U0005

== ENCOUNTER 2022-05-08 07:31 | Day surgery (SDC) | payer MEDICARE ==
[2022-05-08] MEDS ORDERED: Lidocaine 1% PF 5 ML VIAL ONE (07:47)
[2022-05-08] MEDS ORDERED: Sodium Bicarbonate 2.5 MEQ/5 ML VIAL ONE (07:47)
[2022-05-08 08:51] VITALS: BP 106/64; TEMP 98.6
== END 2022-05-08 08:50 | disposition home or self-care (01) ==
LOC: SPEC 07:31
PROVIDERS: ATTEND Urology
PROC: 0T25X0Z Change Drainage Device in Kidney, External Approach (ICD-10-PCS; principal; 2022-05-08)
DX: Z46.6 Encounter for fitting and adjustment of urinary device (principal); N13.5 Crossing vessel and stricture of ureter without hydronephrosis; C18.9 Malignant neoplasm of colon, unspecified; C79.9 Secondary malignant neoplasm of unspecified site; Z88.8 Allergy status to other drugs, medicaments and biological substances
CPT/HCPCS: 50430; 50431; 50436; 74425

== ENCOUNTER 2022-06-07 00:10 | Observation (INO) | payer MEDICARE ==
[2022-06-07] MEDS ORDERED: Morphine 2 MG/ML VIAL ONE (04:00)
[2022-06-07 04:10] LABS: #Eosinphils 0.2 thou/uL (0.0-0.7); #Lymphocytes 1.6 thou/uL (1.20-3.40); #Monocytes 0.4 thou/uL (0.11-0.59); #Neutrophils 8.6 thou/uL (1.40-6.50); %Basophils 0.4 % (0.0-1.0); %Eosinophils 1.5 % (0.0-10.0); %Lymphocytes 14.5 % (21.0-51.0); %Monocytes 3.7 % (0.0-10.0); %Neutrophils 79.9 % (42.0-75.0); Hemoglobin 11.4 g/dL (12.0-16.0); Mean Corpuscular Hemoglobin 32.5 pg (27.0-31.0); Mean Corpuscular Volume 98.4 fL (78.0-98.0); Mean Platelet Volume 6.5 fL (7.4-10.4); Platelet Count 248 thou/uL (130-400); RBC Distribution Width 15.7 % (11.5-14.5); Red Blood Cell (RBC) Count 3.52 mill/uL (4.20-5.40); White Blood Cell (WBC) Count 10.7 thou/uL (4.8-10.8)
[2022-06-07 04:32] LABS: ALT (SGPT) Less than 7 U/L (8-55); AST (SGOT) 10 U/L (5-34); Albumin 3.4 g/dL (3.4-4.8); Alkaline Phosphatase 134 U/L (40-110); Anion Gap 17 mmol/L (10-20); BUN (Urea Nitrogen) 18 mg/dL (9.8-20.1); Bilirubin, Total 0.4 mg/dL (0.2-1.2); Calc. Creatinine Clearance 0 mL/min (70-130); Calcium 9.4 mg/dL (7.8-10.44); Carbon Dioxide 27 mmol/L (23-31); Chloride 100 mmol/L (98-107); Estimated GFR 78; Globulin 3.3 g/dL (2.4-3.5); Glucose 107 mg/dL (83-110); Potassium 3.5 mmol/L (3.5-5.1); Protein, Total 6.7 g/dL (5.8-8.1); Sodium 140 mmol/L (136-145)
[2022-06-07 08:26] VITALS: TEMP 98.1
[2022-06-07 09:09] VITALS: BMI 13.6
[2022-06-07] MEDS ORDERED: Ondansetron PF 4 MG/2 ML Vial IVP PRN (09:35)
[2022-06-07] MEDS ORDERED: Non-Formulary Item 1 EACH (Acetaminophen With Codeine [Acetaminophen-Cod #4 Tablet] 1 EAC PO PRN (09:35)
[2022-06-07] MEDS ORDERED: traMADol HCl 50 MG TAB PO PRN (09:35)
[2022-06-07] MEDS ORDERED: Ondansetron ODT 4 MG TAB PO PRN (09:35)
[2022-06-07] MEDS ORDERED: Acetaminophen 500 MG TAB PO PRN (09:35)
[2022-06-07] MEDS ORDERED: HYDROcodone/Acetaminophen 5/325 mg Tablet PO PRN (09:35)
[2022-06-07] MEDS ORDERED: Acetaminophen/Codeine 30-300mg Tablet PO PRN (09:39)
[2022-06-07] MEDS ORDERED: OFLOXACIN R EYE SCH (13:00)
[2022-06-07 15:17] LABS: Prothrombin Time 13.1 sec (12.0-14.7)
[2022-06-07 15:18] LABS: PTT 30.8 sec (22.9-36.1)
[2022-06-07] MEDS: Ciprofloxacin 0.3% Ophth Soln 2.5 ml Bottle R EYE SCH ×2 (15:50→17:16)
[2022-06-07] MEDS: prednisoLONE 1% Ophth Susp 5 ml Bottle R EYE SCH ×2 (15:51→17:16)
[2022-06-07 16:17] VITALS: BP 107/69
[2022-06-07] MEDS ORDERED: Mirtazapine 15 MG TAB PO SCH (21:00)
[2022-06-08] MEDS ORDERED: SIMETHICONE 125 MG PO SCH (09:00)
[2022-06-08] MEDS ORDERED: Simethicone Chewable 80 MG TAB PO SCH (09:00)
== END 2022-06-07 18:39 | disposition home or self-care (01) ==
LOC: ERS 00:10 → MSONC 05:49
PROVIDERS: ADMIT Family Medicine; ATTEND Family Medicine
PROC: 0T25X0Z Change Drainage Device in Kidney, External Approach (ICD-10-PCS; principal; 2022-06-07)
DX: T83.128A Displacement of other urinary devices and implants, initial encounter (principal); N13.1 Hydronephrosis with ureteral stricture, not elsewhere classified; C18.9 Malignant neoplasm of colon, unspecified; C79.9 Secondary malignant neoplasm of unspecified site; D53.9 Nutritional anemia, unspecified; F17.210 Nicotine dependence, cigarettes, uncomplicated; J44.9 Chronic obstructive pulmonary disease, unspecified; R18.8 Other ascites; Z79.899 Other long term (current) drug therapy; Z88.8 Allergy status to other drugs, medicaments and biological substances; Z93.2 Ileostomy status; Z90.49 Acquired absence of other specified parts of digestive tract; Y73.1 Therapeutic (nonsurgical) and rehabilitative gastroenterology and urology devices associated with adverse incidents
CPT/HCPCS: 50436; 74176; 80053; 85025; 85610; 85730; 99284; C1729; G0378 ×2; 36415; J2270

== ENCOUNTER 2022-06-13 08:08 | Outpatient (CLI) | payer MEDICARE | END 2022-06-13 08:09 | disposition home or self-care (01) | LOC: BICCT 08:08 | PROVIDERS: ATTEND Internal Medicine Hematology & Oncology | DX: C18.5 Malignant neoplasm of splenic flexure (principal); R91.1 Solitary pulmonary nodule; C78.7 Secondary malignant neoplasm of liver and intrahepatic bile duct; Z96.698 Presence of other orthopedic joint implants | CPT/HCPCS: 71260; 74177 ==

== ENCOUNTER 2022-07-26 23:42 | Inpatient (IN) | payer MEDICARE ==
[2022-07-26] MEDS ORDERED: Ondansetron PF 4 MG/2 ML Vial ONE (23:50)
[2022-07-27] MEDS ORDERED: Morphine 4 MG/ML VIAL ONE
[2022-07-27 00:16] LABS: Hemoglobin 12.9 g/dL (12.0-16.0); Mean Corpuscular HGB CONC 33.1 g/dL (32.0-36.0); Mean Corpuscular Hemoglobin 30.3 pg (27.0-31.0); Mean Corpuscular Volume 91.8 fL (78.0-98.0); Mean Platelet Volume 7.2 fL (7.4-10.4); Platelet Count 458 thou/uL (130-400); RBC Distribution Width 16.2 % (11.5-14.5); Red Blood Cell (RBC) Count 4.24 mill/uL (4.20-5.40); White Blood Cell (WBC) Count 26.1 thou/uL (4.8-10.8)
[2022-07-27] MEDS ORDERED: Cefepime 2 GM VIAL ONE ×2 (00:33→00:37)
[2022-07-27 00:37] LABS: ALT (SGPT) 7 U/L (8-55); AST (SGOT) 12 U/L (5-34); Albumin 3.6 g/dL (3.4-4.8); Alkaline Phosphatase 178 U/L (40-110); Anion Gap 26 mmol/L (10-20); Bilirubin, Total 0.5 mg/dL (0.2-1.2); CK (CPK) 32 U/L (29-168); Calc. Creatinine Clearance 0 mL/min (70-130); Calcium 10.3 mg/dL (7.8-10.44); Carbon Dioxide 15 mmol/L (23-31); Chloride 94 mmol/L (98-107); Estimated GFR 23; Globulin 4.9 g/dL (2.4-3.5); Glucose 136 mg/dL (83-110); Lipase 60 U/L (8-78); Potassium 5.7 mmol/L (3.5-5.1); Protein, Total 8.5 g/dL (5.8-8.1); Sodium 129 mmol/L (136-145)
[2022-07-27 00:48] LABS: BUN (Urea Nitrogen) 129 mg/dL (9.8-20.1); Band 6 % (5-11); Lymphocytes 4 % (21-51); MDiff Complete? YES; Monocytes 1 % (0-10); Neutrophil 89 % (42-75); Platelet Morphology Comment Appears Increased; Toxic Granulation SLIGHT
[2022-07-27] MEDS ORDERED: Vancomycin 1 GM/200 ML BAG ONE (02:21)
[2022-07-27 02:29] LABS: Bacteria/HPF 3+ HPF (None Seen); Bilirubin Negative (Negative); Blood, Urine 3+ (Negative); Clarity Extra Turbid (Clear); Glucose, Urine (Dipstick) Normal (Negative); Ketone, Urine Negative (Negative); Leukocyte 500 Leu/uL (Negative); Nitrite Negative (Negative); Protein, Urine (Dipstick) 100 mg/dL (Neg-Trace); Specific Gravity, Urine 1.013 (1.002-1.036); Squamous Epithelial None Seen HPF (0-3); Urobilinogen Normal mg/dL (Less than 2); WBC/HPF Greater than 50 HPF (0-3); Yeast-Budding 3+ HPF (None Seen); pH, Urine 5.5 (5.0-9.0)
[2022-07-27] MEDS ORDERED: Acetaminophen 650 MG Suppository PR PRN (04:13)
[2022-07-27] MEDS ORDERED: Acetaminophen 325 MG TAB PO PRN (04:13)
[2022-07-27] MEDS ORDERED: Ondansetron ODT 4 MG TAB PO PRN (04:13)
[2022-07-27] MEDS ORDERED: Ondansetron PF 4 MG/2 ML Vial IVP PRN (04:13)
[2022-07-27] MEDS ORDERED: Sodium Chloride 0.9% 1,000 ML IV SCH (04:15)
[2022-07-27 05:32] VITALS: BMI 12.0
[2022-07-27 07:13] LABS: Anion Gap 18 mmol/L (10-20); BUN (Urea Nitrogen) 107 mg/dL (9.8-20.1); Calc. Creatinine Clearance 15 mL/min (70-130); Calcium 8.6 mg/dL (7.8-10.44); Carbon Dioxide 10 mmol/L (23-31); Chloride 109 mmol/L (98-107); Estimated GFR 35; Glucose 109 mg/dL (83-110); Potassium 5.5 mmol/L (3.5-5.1); Sodium 131 mmol/L (136-145)
[2022-07-27 07:51] LABS: #Lymphocytes 0.6 thou/uL (1.20-3.40); #Monocytes 0.5 thou/uL (0.11-0.59); #Neutrophils 13.2 thou/uL (1.40-6.50); %Eosinophils 0.1 % (0.0-10.0); %Lymphocytes 4.3 % (21.0-51.0); %Monocytes 3.4 % (0.0-10.0); %Neutrophils 92.2 % (42.0-75.0); Hemoglobin 11.1 g/dL (12.0-16.0); Mean Corpuscular HGB CONC 31.8 g/dL (32.0-36.0); Mean Corpuscular Hemoglobin 30.2 pg (27.0-31.0); Platelet Count 247 thou/uL (130-400); RBC Distribution Width 15.9 % (11.5-14.5); Red Blood Cell (RBC) Count 3.67 mill/uL (4.20-5.40); White Blood Cell (WBC) Count 14.4 thou/uL (4.8-10.8)
[2022-07-27] MEDS ORDERED: Calcium Gluconate 4.6 MEQ in Sodium Chloride 0.9% 100 ML IVPB ONE (08:19)
[2022-07-27] MEDS ORDERED: Dextrose 50% Abboject 50 ML SYRINGE SLOW IVP SCH (08:20)
[2022-07-27] MEDS ORDERED: Albuterol Sulfate 2.5 mg/3 ml Neb NEB PRN (08:21)
[2022-07-27] MEDS ORDERED: Non-Formulary Item 1 EACH (Acetaminophen With Codeine [Acetaminophen-Cod #4 Tablet] 1 EAC PO PRN (08:21)
[2022-07-27] MEDS ORDERED: Vancomycin Hemodialysis Sliding Scale FS SCH (08:30)
[2022-07-27] MEDS ORDERED: Insulin Regular 300 UNITS/3 ML VIAL IVP SCH (08:30)
[2022-07-27] MEDS ORDERED: Dextrose 5 % And 0.9 % NaCl 1,000 ML IV SCH (08:30)
[2022-07-27] MEDS ORDERED: Albuterol Sulfate 2.5 mg/3 ml Neb NEB SCH (08:30)
[2022-07-27] MEDS ORDERED: CALCIUM GLUC 1GM/NS 50ML 1 GM in Premix Bag 1 BAG IVPB SCH (08:45)
[2022-07-27] MEDS: Enoxaparin Sodium 30 MG/0.3 ML SYRINGE SC SCH ×2 (09:25→10:00)
[2022-07-27] MEDS: Acetaminophen/Codeine 30-300mg Tablet PO PRN ×2 (09:26→16:34)
[2022-07-27] MEDS ORDERED: Sodium Bicarbonate 150 MEQ in Dextrose 5% in Water 1,000 ML IV SCH (10:15)
[2022-07-27] MEDS: prednisoLONE 1% Ophth Susp 5 ml Bottle R EYE SCH ×5 (11:35→21:19)
[2022-07-27 12:34] LABS: Anion Gap 15 mmol/L (10-20); BUN (Urea Nitrogen) 95 mg/dL (9.8-20.1); Calc. Creatinine Clearance 17 mL/min (70-130); Calcium 8.4 mg/dL (7.8-10.44); Carbon Dioxide 13 mmol/L (23-31); Chloride 110 mmol/L (98-107); Estimated GFR 41; Glucose 134 mg/dL (83-110); Sodium 133 mmol/L (136-145)
[2022-07-27] MEDS ORDERED: Cefepime 2 GM in Sodium Chloride 0.9% 100 ML IVPB SCH (13:00)
[2022-07-27 13:16] LABS: Anion Gap 15 mmol/L (10-20); BUN (Urea Nitrogen) 94 mg/dL (9.8-20.1); Calc. Creatinine Clearance 16 mL/min (70-130); Calcium 8.5 mg/dL (7.8-10.44); Carbon Dioxide 14 mmol/L (23-31); Chloride 110 mmol/L (98-107); Estimated GFR 39; Glucose 131 mg/dL (83-110); Potassium 4.8 mmol/L (3.5-5.1); Sodium 134 mmol/L (136-145)
[2022-07-27] MEDS ORDERED: VANCOMYCIN 1.25 GM/250 ML BAG IVPB SCH ×2 (14:00)
[2022-07-27] MEDS: Sodium Bicarbonate 150 MEQ in Dextrose 5% in Water 1,000 ML IV SCH (14:38)
[2022-07-28 01:37] LABS: Vancomycin, Trough 13.9 ug/mL
[2022-07-28] MEDS: Acetaminophen/Codeine 30-300mg Tablet PO PRN ×2 (02:17→23:40)
[2022-07-28] MEDS ORDERED: Vancomycin HCl 500 MG in Sodium Chloride 0.9% 100 ML IVPB SCH (03:00)
[2022-07-28] MEDS: Enoxaparin Sodium 30 MG/0.3 ML SYRINGE SC SCH (08:04)
[2022-07-28 08:20] LABS: #Lymphocytes 0.5 thou/uL (1.20-3.40); #Monocytes 0.5 thou/uL (0.11-0.59); #Neutrophils 9.5 thou/uL (1.40-6.50); %Basophils 0.3 % (0.0-1.0); %Eosinophils 0.3 % (0.0-10.0); %Lymphocytes 4.8 % (21.0-51.0); %Monocytes 4.3 % (0.0-10.0); %Neutrophils 90.3 % (42.0-75.0); Hemoglobin 9.4 g/dL (12.0-16.0); Mean Corpuscular HGB CONC 32.4 g/dL (32.0-36.0); Mean Corpuscular Hemoglobin 30.5 pg (27.0-31.0); Mean Corpuscular Volume 94.2 fL (78.0-98.0); Mean Platelet Volume 6.7 fL (7.4-10.4); Platelet Count 241 thou/uL (130-400); RBC Distribution Width 15.6 % (11.5-14.5); Red Blood Cell (RBC) Count 3.09 mill/uL (4.20-5.40); White Blood Cell (WBC) Count 10.5 thou/uL (4.8-10.8)
[2022-07-28 08:38] LABS: Anion Gap 13 mmol/L (10-20); BUN (Urea Nitrogen) 61 mg/dL (9.8-20.1); Calc. Creatinine Clearance 23 mL/min (70-130); Calcium 8.5 mg/dL (7.8-10.44); Carbon Dioxide 25 mmol/L (23-31); Chloride 105 mmol/L (98-107); Estimated GFR 59; Glucose 100 mg/dL (83-110); Potassium 4.4 mmol/L (3.5-5.1); Sodium 139 mmol/L (136-145)
[2022-07-28] MEDS: prednisoLONE 1% Ophth Susp 5 ml Bottle R EYE SCH ×4 (09:22→21:27)
[2022-07-28] MEDS: Sodium Bicarbonate 150 MEQ in Dextrose 5% in Water 1,000 ML IV SCH (09:22)
[2022-07-28] MEDS ORDERED: Electrolyte Replacement Protocol 1 EACH FS SCH (12:00)
[2022-07-28] MEDS ORDERED: Electrolyte Replacement Protocol FS PRN (12:00)
[2022-07-28 12:29] LABS: Magnesium 1.8 mg/dL (1.6-2.6); Phosphorus 2.7 mg/dL (2.3-4.7)
[2022-07-28] MEDS ORDERED: Magnesium 2 GM/50 ML(in water) 2 GM in Premix Bag 1 BAG IVPB SCH (12:45)
[2022-07-28] MEDS ORDERED: Cefepime 1 GM in Sodium Chloride 0.9% 100 ML IVPB SCH (13:00)
[2022-07-28] MEDS: Dextrose 5%-Lactated Ringers 1,000 ML IV SCH (14:17)
[2022-07-29] MEDS: Dextrose 5%-Lactated Ringers 1,000 ML IV SCH ×3 (01:08→20:46)
[2022-07-29] MEDS: Morphine 2 MG/ML VIAL SLOW IVP PRN ×2 (04:14→12:12)
[2022-07-29 05:07] LABS: Vancomycin, Trough 13.1 ug/mL
[2022-07-29] MEDS: Enoxaparin Sodium 30 MG/0.3 ML SYRINGE SC SCH (07:39)
[2022-07-29] MEDS ORDERED: Vancomycin HCl 500 MG in Sodium Chloride 0.9% 100 ML IVPB SCH (08:00)
[2022-07-29] MEDS: Thiamine 100 MG TAB PO SCH (08:45)
[2022-07-29] MEDS: prednisoLONE 1% Ophth Susp 5 ml Bottle R EYE SCH ×4 (08:45→20:48)
[2022-07-29] MEDS ORDERED: Fentanyl 100 MCG/2 ML VIAL ONE (10:52)
[2022-07-29] MEDS ORDERED: Iopamidol 300 61% 50 ML VIAL FS ONE (10:58)
[2022-07-29] MEDS: Cefepime 1 GM in Sodium Chloride 0.9% 100 ML IVPB SCH (12:13)
[2022-07-29 16:23] LABS: #Lymphocytes 0.6 thou/uL (1.20-3.40); #Monocytes 0.6 thou/uL (0.11-0.59); %Basophils 0.1 % (0.0-1.0); %Eosinophils 0.3 % (0.0-10.0); %Lymphocytes 6.2 % (21.0-51.0); %Neutrophils 87.4 % (42.0-75.0); Hemoglobin 8.7 g/dL (12.0-16.0); Mean Corpuscular HGB CONC 30.8 g/dL (32.0-36.0); Mean Corpuscular Hemoglobin 29.4 pg (27.0-31.0); Mean Corpuscular Volume 95.7 fL (78.0-98.0); Mean Platelet Volume 6.9 fL (7.4-10.4); Platelet Count 211 thou/uL (130-400); RBC Distribution Width 15.5 % (11.5-14.5); Red Blood Cell (RBC) Count 2.96 mill/uL (4.20-5.40); White Blood Cell (WBC) Count 9.2 thou/uL (4.8-10.8)
[2022-07-29 16:45] LABS: Albumin 2.1 g/dL (3.4-4.8); Anion Gap 10 mmol/L (10-20); BUN (Urea Nitrogen) 25 mg/dL (9.8-20.1); Bilirubin, Total 0.2 mg/dL (0.2-1.2); Calc. Creatinine Clearance 34 mL/min (70-130); Calcium 8.1 mg/dL (7.8-10.44); Carbon Dioxide 28 mmol/L (23-31); Chloride 106 mmol/L (98-107); Estimated GFR 92; Glucose 126 mg/dL (83-110); Potassium 3.8 mmol/L (3.5-5.1); Protein, Total 5.1 g/dL (5.8-8.1); Sodium 140 mmol/L (136-145)
[2022-07-29 16:46] LABS: ALT (SGPT) 7 U/L (8-55); AST (SGOT) 8 U/L (5-34); Alkaline Phosphatase 87 U/L (40-110)
[2022-07-29] MEDS: Acetaminophen/Codeine 30-300mg Tablet PO PRN (21:06)
[2022-07-30] MEDS: Cefepime 1 GM in Sodium Chloride 0.9% 100 ML IVPB SCH ×2 (00:28→13:17)
[2022-07-30 07:28] LABS: #Eosinphils 0.1 thou/uL (0.0-0.7); #Lymphocytes 0.7 thou/uL (1.20-3.40); #Monocytes 0.5 thou/uL (0.11-0.59); %Eosinophils 0.9 % (0.0-10.0); %Lymphocytes 11.2 % (21.0-51.0); %Monocytes 7.3 % (0.0-10.0); %Neutrophils 80.6 % (42.0-75.0); Hemoglobin 9.2 g/dL (12.0-16.0); Mean Corpuscular HGB CONC 29.9 g/dL (32.0-36.0); Mean Corpuscular Hemoglobin 29.2 pg (27.0-31.0); Mean Corpuscular Volume 97.9 fL (78.0-98.0); Mean Platelet Volume 6.9 fL (7.4-10.4); Platelet Count 208 thou/uL (130-400); RBC Distribution Width 15.3 % (11.5-14.5); Red Blood Cell (RBC) Count 3.13 mill/uL (4.20-5.40); White Blood Cell (WBC) Count 6.2 thou/uL (4.8-10.8)
[2022-07-30 07:44] LABS: ALT (SGPT) Less than 7 U/L (8-55); AST (SGOT) 8 U/L (5-34); Albumin 2.1 g/dL (3.4-4.8); Alkaline Phosphatase 88 U/L (40-110); Anion Gap 9 mmol/L (10-20); BUN (Urea Nitrogen) 16 mg/dL (9.8-20.1); Bilirubin, Total 0.2 mg/dL (0.2-1.2); Calc. Creatinine Clearance 38 mL/min (70-130); Calcium 8.2 mg/dL (7.8-10.44); Carbon Dioxide 26 mmol/L (23-31); Chloride 108 mmol/L (98-107); Estimated GFR 95; Globulin 3.1 g/dL (2.4-3.5); Glucose 100 mg/dL (83-110); Potassium 4.2 mmol/L (3.5-5.1); Protein, Total 5.2 g/dL (5.8-8.1); Sodium 139 mmol/L (136-145)
[2022-07-30] MEDS ORDERED: Vancomycin HCl 500 MG in Sodium Chloride 0.9% 100 ML IVPB SCH (08:00)
[2022-07-30] MEDS: prednisoLONE 1% Ophth Susp 5 ml Bottle R EYE SCH ×4 (08:45→21:29)
[2022-07-30] MEDS: Thiamine 100 MG TAB PO SCH (08:45)
[2022-07-30] MEDS: Enoxaparin Sodium 30 MG/0.3 ML SYRINGE SC SCH ×2 (08:49→09:51)
[2022-07-30 09:47] LABS: Platelet Morphology Comment Appears Adequate; RBC Morphology Normal
[2022-07-30] MEDS ORDERED: Vancomycin HCl 750 MG in Sodium Chloride 0.9% 250 ML 250 ML IVPB SCH (10:00)
[2022-07-30] MEDS: Dextrose 5%-Lactated Ringers 1,000 ML IV SCH (10:38)
[2022-07-30] MEDS: Acetaminophen/Codeine 30-300mg Tablet PO PRN (21:26)
[2022-07-31] MEDS: Cefepime 1 GM in Sodium Chloride 0.9% 100 ML IVPB SCH ×2 (00:52→14:00)
[2022-07-31] MEDS: Acetaminophen/Codeine 30-300mg Tablet PO PRN ×2 (05:03→21:26)
[2022-07-31] MEDS: Thiamine 100 MG TAB PO SCH (09:46)
[2022-07-31] MEDS: Enoxaparin Sodium 30 MG/0.3 ML SYRINGE SC SCH (09:46)
[2022-07-31] MEDS: prednisoLONE 1% Ophth Susp 5 ml Bottle R EYE SCH ×4 (09:47→21:27)
[2022-07-31] MEDS: Morphine 2 MG/ML VIAL SLOW IVP PRN (10:00)
[2022-08-01] MEDS: Cefepime 1 GM in Sodium Chloride 0.9% 100 ML IVPB SCH ×2 (00:46→12:31)
[2022-08-01] MEDS: Thiamine 100 MG TAB PO SCH (08:27)
[2022-08-01] MEDS: prednisoLONE 1% Ophth Susp 5 ml Bottle R EYE SCH ×5 (08:27→19:14)
[2022-08-01] MEDS: Enoxaparin Sodium 30 MG/0.3 ML SYRINGE SC SCH (08:27)
[2022-08-01] MEDS: Acetaminophen/Codeine 30-300mg Tablet PO PRN (20:04)
[2022-08-02] MEDS: Cefepime 1 GM in Sodium Chloride 0.9% 100 ML IVPB SCH ×2 (01:32→13:00)
[2022-08-02] MEDS: Morphine 2 MG/ML VIAL SLOW IVP PRN (02:18)
[2022-08-02] MEDS: prednisoLONE 1% Ophth Susp 5 ml Bottle R EYE SCH ×4 (08:53→21:49)
[2022-08-02] MEDS: Enoxaparin Sodium 30 MG/0.3 ML SYRINGE SC SCH (08:55)
[2022-08-02] MEDS: Thiamine 100 MG TAB PO SCH (08:55)
[2022-08-03] MEDS: Morphine 2 MG/ML VIAL SLOW IVP PRN ×2 (00:31→20:31)
[2022-08-03] MEDS: Cefepime 1 GM in Sodium Chloride 0.9% 100 ML IVPB SCH ×2 (00:31→14:15)
[2022-08-03] MEDS: Enoxaparin Sodium 30 MG/0.3 ML SYRINGE SC SCH (09:06)
[2022-08-03] MEDS: prednisoLONE 1% Ophth Susp 5 ml Bottle R EYE SCH ×5 (09:06→20:34)
[2022-08-03] MEDS: Thiamine 100 MG TAB PO SCH (09:07)
[2022-08-04] MEDS: Cefepime 1 GM in Sodium Chloride 0.9% 100 ML IVPB SCH ×2 (01:36→14:06)
[2022-08-04] MEDS: Morphine 2 MG/ML VIAL SLOW IVP PRN (02:50)
[2022-08-04 06:29] LABS: #Basophils 0.1 thou/uL (0.0-0.2); #Eosinphils 0.1 thou/uL (0.0-0.7); #Lymphocytes 1.2 thou/uL (1.20-3.40); #Monocytes 0.5 thou/uL (0.11-0.59); #Neutrophils 3.9 thou/uL (1.40-6.50); %Eosinophils 2.2 % (0.0-10.0); %Neutrophils 68.8 % (42.0-75.0); Hemoglobin 9.5 g/dL (12.0-16.0); Mean Corpuscular HGB CONC 31.6 g/dL (32.0-36.0); Mean Corpuscular Hemoglobin 29.5 pg (27.0-31.0); Mean Corpuscular Volume 93.6 fL (78.0-98.0); Mean Platelet Volume 7.8 fL (7.4-10.4); Platelet Count 175 thou/uL (130-400); RBC Distribution Width 15.6 % (11.5-14.5); Red Blood Cell (RBC) Count 3.22 mill/uL (4.20-5.40); White Blood Cell (WBC) Count 5.7 thou/uL (4.8-10.8)
[2022-08-04 06:44] LABS: Anion Gap 13 mmol/L (10-20); BUN (Urea Nitrogen) 13 mg/dL (9.8-20.1); Calc. Creatinine Clearance 33 mL/min (70-130); Calcium 8.3 mg/dL (7.8-10.44); Carbon Dioxide 18 mmol/L (23-31); Chloride 112 mmol/L (98-107); Estimated GFR 89; Glucose 84 mg/dL (83-110); Potassium 3.9 mmol/L (3.5-5.1); Sodium 139 mmol/L (136-145)
[2022-08-04] MEDS: Thiamine 100 MG TAB PO SCH (08:22)
[2022-08-04] MEDS: prednisoLONE 1% Ophth Susp 5 ml Bottle R EYE SCH ×2 (08:23→14:06)
[2022-08-04] MEDS: Enoxaparin Sodium 30 MG/0.3 ML SYRINGE SC SCH (08:23)
[2022-08-04 08:36] VITALS: TEMP 97.8
[2022-08-04 16:07] VITALS: BP 89/61
== END 2022-08-04 15:30 | disposition home health service (06) | DRG 698 ==
LOC: ERS 23:42 → T4-A 07-27 02:22
PROVIDERS: ADMIT Family Medicine; ATTEND Family Medicine
PROC: 3E03329 Introduction of Other Anti-infective into Peripheral Vein, Percutaneous Approach (ICD-10-PCS; principal; 2022-07-27)
PROC: 0T25X0Z Change Drainage Device in Kidney, External Approach (ICD-10-PCS; 2022-07-29)
DX: T83.511A Infection and inflammatory reaction due to indwelling urethral catheter, initial encounter (principal); Z20.822 Contact with and (suspected) exposure to COVID-19; Z51.5 Encounter for palliative care; A41.51 Sepsis due to Escherichia coli [E. coli]; E43 Unspecified severe protein-calorie malnutrition; B37.7 Candidal sepsis; A41.89 Other specified sepsis; N12 Tubulo-interstitial nephritis, not specified as acute or chronic; N17.9 Acute kidney failure, unspecified; N18.4 Chronic kidney disease, stage 4 (severe); Z68.1 Body mass index [BMI] 19.9 or less, adult; E87.1 Hypo-osmolality and hyponatremia; C18.9 Malignant neoplasm of colon, unspecified; C79.9 Secondary malignant neoplasm of unspecified site; E87.2 Acidosis; R64 Cachexia; N39.0 Urinary tract infection, site not specified; Y84.6 Urinary catheterization as the cause of abnormal reaction of the patient, or of later complication, without mention of misadventure at the time of the procedure; D63.1 Anemia in chronic kidney disease; F17.210 Nicotine dependence, cigarettes, uncomplicated; R62.7 Adult failure to thrive; E87.5 Hyperkalemia; E86.0 Dehydration; I12.9 Hypertensive chronic kidney disease with stage 1 through stage 4 chronic kidney disease, or unspecified chronic kidney disease; Z98.890 Other specified postprocedural states; Z28.21 Immunization not carried out because of patient refusal; Z93.2 Ileostomy status; Z79.899 Other long term (current) drug therapy; Z87.440 Personal history of urinary (tract) infections; Z90.49 Acquired absence of other specified parts of digestive tract; Z90.710 Acquired absence of both cervix and uterus; Z90.5 Acquired absence of kidney; Z93.6 Other artificial openings of urinary tract status
CPT/HCPCS: 36415; 50431; 50435; 71045; 80048; 80053; 80202; 81003; 81015; 82550; 82565; 83605; 83690; 83735; 84100; 85025; 87077; 87086; 87186; 87811; 93005; 93010; 94640; 96361; 96365; 96366; 96367; 96375; J0610; J0692; J1642; J1650; J1815; J2270; J2405; J3010; J3370; J3475; J3490; J7042; J7050; J7070; J7611; J7999; Q9967; U0003; U0005

== ENCOUNTER 2022-10-13 14:26 | Emergency (ER) | payer MEDICARE ==
[2022-10-13 15:27] LABS: #Eosinphils 0.1 thou/uL (0.0-0.7); #Lymphocytes 1.4 thou/uL (1.20-3.40); #Monocytes 0.3 thou/uL (0.11-0.59); #Neutrophils 5.7 thou/uL (1.40-6.50); %Basophils 0.2 % (0.0-1.0); %Eosinophils 0.7 % (0.0-10.0); %Monocytes 4.1 % (0.0-10.0); Hemoglobin 9.4 g/dL (12.0-16.0); Mean Corpuscular HGB CONC 32.3 g/dL (32.0-36.0); Mean Corpuscular Hemoglobin 29.2 pg (27.0-31.0); Mean Corpuscular Volume 90.6 fl (78.0-98.0); Mean Platelet Volume 6.8 fL (7.4-10.4); Platelet Count 271 10x3/uL (130-400); RBC Distribution Width 15.7 % (11.5-14.5); Red Blood Cell (RBC) Count 3.22 mill/uL (4.20-5.40); White Blood Cell (WBC) Count 7.5 10x3/uL (4.8-10.8)
[2022-10-13] MEDS ORDERED: Cefepime 2 GM in Sodium Chloride 0.9% 100 ML IVPB SCH (15:30)
[2022-10-13 15:43] LABS: INR-International Normal Ratio 1.1; Prothrombin Time 14.1 sec (12.0-14.7)
[2022-10-13 15:59] LABS: ALT (SGPT) 8 U/L (8-55); AST (SGOT) 21 U/L (5-34); Albumin 2.6 g/dL (3.4-4.8); Alkaline Phosphatase 148 U/L (40-110); Anion Gap 13 mmol/L (10-20); BUN (Urea Nitrogen) 19 mg/dL (9.8-20.1); Bilirubin, Total 0.2 mg/dL (0.2-1.2); Calc. Creatinine Clearance 0 mL/min (70-130); Calcium 8.4 mg/dL (7.8-10.44); Carbon Dioxide 17 mmol/L (23-31); Chloride 108 mmol/L (98-107); Estimated GFR 61; Globulin 4.6 g/dL (2.4-3.5); Glucose 75 mg/dL (83-110); Potassium 4.4 mmol/L (3.5-5.1); Protein, Total 7.2 g/dL (5.8-8.1); Sodium 134 mmol/L (136-145)
[2022-10-13 16:13] LABS: SARS-CoV-2 NAA Rapid Test Not Detected (NotDetected)
[2022-10-13] MEDS ORDERED: Cefepime 2 GM VIAL ONE (16:27)
[2022-10-13] MEDS ORDERED: Vancomycin HCl 500 MG VIAL ONE (17:33)
== END 2022-10-13 18:55 | disposition home or self-care (01) ==
LOC: ERS 14:26
DX: L03.90 Cellulitis, unspecified (principal); T82.868A Thrombosis due to vascular prosthetic devices, implants and grafts, initial encounter; E86.0 Dehydration; F17.210 Nicotine dependence, cigarettes, uncomplicated; Z20.822 Contact with and (suspected) exposure to COVID-19
CPT/HCPCS: 0240U; 80053; 83605; 84484; 85025; 85610; 85730; 87040; 93005; 96365; 96367; 99284; 36415; J0692; J3370

== ENCOUNTER 2022-11-17 05:56 | Inpatient (IN) | payer OTHER, MEDICARE ==
[2022-11-17 07:37] LABS: #Lymphocytes 0.7 thou/uL (1.20-3.40); #Monocytes 0.4 thou/uL (0.11-0.59); #Neutrophils 9.9 thou/uL (1.40-6.50); %Eosinophils 0.1 % (0.0-10.0); %Lymphocytes 6.5 % (21.0-51.0); %Monocytes 3.3 % (0.0-10.0); %Neutrophils 90.2 % (42.0-75.0); Hemoglobin 9.7 g/dL (12.0-16.0); Mean Corpuscular HGB CONC 31.4 g/dL (32.0-36.0); Mean Corpuscular Hemoglobin 27.9 pg (27.0-31.0); Mean Corpuscular Volume 88.7 fl (78.0-98.0); Mean Platelet Volume 7.1 fL (7.4-10.4); Platelet Count 184 10x3/uL (130-400); RBC Distribution Width 14.8 % (11.5-14.5); Red Blood Cell (RBC) Count 3.46 mill/uL (4.20-5.40)
[2022-11-17 07:59] LABS: ALT (SGPT) Less than 7 U/L (8-55); AST (SGOT) 15 U/L (5-34); Albumin 2.6 g/dL (3.4-4.8); Alkaline Phosphatase 103 U/L (40-110); Anion Gap 15 mmol/L (10-20); BUN (Urea Nitrogen) 38 mg/dL (9.8-20.1); Bilirubin, Total 0.4 mg/dL (0.2-1.2); Calc. Creatinine Clearance 0 mL/min (70-130); Calcium 8.6 mg/dL (7.8-10.44); Carbon Dioxide 24 mmol/L (23-31); Chloride 101 mmol/L (98-107); Estimated GFR 42; Globulin 4.5 g/dL (2.4-3.5); Glucose 83 mg/dL (83-110); Lipase 18 U/L (8-78); Magnesium 1.9 mg/dL (1.6-2.6); Protein, Total 7.1 g/dL (5.8-8.1); Sodium 136 mmol/L (136-145)
[2022-11-17] MEDS ORDERED: Piperacillin/Tazobactam 3.375 GM VIAL ONE (08:29)
[2022-11-17] MEDS ORDERED: Iopamidol-370 76% 500 ML 1 ML ONE (10:56)
[2022-11-17] MEDS ORDERED: Ondansetron PF 4 MG/2 ML Vial IVP PRN (11:48)
[2022-11-17] MEDS ORDERED: Acetaminophen 650 MG Suppository PR PRN (11:48)
[2022-11-17] MEDS ORDERED: Ondansetron ODT 4 MG TAB PO PRN (11:48)
[2022-11-17] MEDS ORDERED: cefTRIAXone\\ROCEPHIN 1 GM VIAL ONE (16:49)
[2022-11-17] MEDS: cefTRIAXone\\ROCEPHIN 1 GM in Sodium Chloride 0.9% 100 ML IVPB SCH (16:53)
[2022-11-17] MEDS ORDERED: Azithromycin 500 MG VIAL ONE ×2 (17:15→17:17)
[2022-11-17] MEDS: Azithromycin 500 MG in Sodium Chloride 0.9% 250 ML 250 ML IVPB SCH (18:45)
[2022-11-17] MEDS ORDERED: traMADol HCl 50 MG TAB PO PRN (21:38)
[2022-11-18] MEDS: Heparin 5,000 UNITS/ML VIAL SC SCH ×3 (00:08→21:46)
[2022-11-18] MEDS: guaiFENesin ER 600 MG TAB PO SCH ×3 (00:08→21:46)
[2022-11-18 00:59] VITALS: BMI 11.5
[2022-11-18] MEDS ORDERED: Sodium Chloride 0.9% 500 ML IV SCH (04:15)
[2022-11-18] MEDS: traMADol HCl 50 MG TAB PO PRN (04:53)
[2022-11-18 05:04] LABS: #Lymphocytes 0.9 thou/uL (1.20-3.40); #Monocytes 0.3 thou/uL (0.11-0.59); #Neutrophils 8.8 thou/uL (1.40-6.50); %Basophils 0.4 % (0.0-1.0); %Eosinophils 0.1 % (0.0-10.0); %Lymphocytes 9.2 % (21.0-51.0); %Monocytes 3.3 % (0.0-10.0); Hemoglobin 9.6 g/dL (12.0-16.0); Mean Corpuscular HGB CONC 31.1 g/dL (32.0-36.0); Mean Corpuscular Hemoglobin 28.3 pg (27.0-31.0); Mean Corpuscular Volume 90.8 fl (78.0-98.0); Mean Platelet Volume 7.4 fL (7.4-10.4); Platelet Count 173 10x3/uL (130-400); RBC Distribution Width 14.9 % (11.5-14.5); Red Blood Cell (RBC) Count 3.39 mill/uL (4.20-5.40); White Blood Cell (WBC) Count 10.2 10x3/uL (4.8-10.8)
[2022-11-18 05:25] LABS: Anion Gap 19 mmol/L (10-20); BUN (Urea Nitrogen) 36 mg/dL (9.8-20.1); Calc. Creatinine Clearance 20 mL/min (70-130); Calcium 8.6 mg/dL (7.8-10.44); Carbon Dioxide 17 mmol/L (23-31); Chloride 110 mmol/L (98-107); Estimated GFR 53; Sodium 142 mmol/L (136-145)
[2022-11-18 06:08] LABS: Glucose 37 mg/dL (83-110)
[2022-11-18] MEDS ORDERED: Dextrose 50% Abboject 50 ML SYRINGE SLOW IVP PRN (06:24)
[2022-11-18] MEDS ORDERED: Dextrose 5% in Water 1,000 ML IV PRN ×2 (06:24→12:09)
[2022-11-18] MEDS ORDERED: Ipratropium Oral Inhaler INH PRN (07:32)
[2022-11-18] MEDS ORDERED: Albuterol 200 PUFF (6.7GM INHALER) INH PRN (07:32)
[2022-11-18 08:49] LABS: Magnesium 1.7 mg/dL (1.6-2.6); Phosphorus 3.6 mg/dL (2.3-4.7)
[2022-11-18] MEDS: Dextrose 5%-Lactated Ringers 1,000 ML IV SCH ×2 (09:11→21:48)
[2022-11-18] MEDS: Folic Acid 1 MG TAB PO SCH (09:17)
[2022-11-18] MEDS: Nicotine 14 MG PATCH TD SCH (09:17)
[2022-11-18] MEDS: Bacitracin 1 PK TOP SCH ×2 (10:45→21:46)
[2022-11-18 11:46] LABS: SARS-CoV-2 NAA Rapid Test Not Detected (NotDetected)
[2022-11-18] MEDS ORDERED: diphenhydrAMINE 25 MG CAP PO PRN (12:09)
[2022-11-18] MEDS ORDERED: GUAIFENESIN SF SOLN 200 MG/10 ML UDCUP PO PRN (12:09)
[2022-11-18] MEDS ORDERED: Artificial Tear Sol 15 ML BOT EA EYE PRN (12:09)
[2022-11-18] MEDS ORDERED: Moisturizing Cream (Eucerin) 113 GM JAR TOP PRN (12:09)
[2022-11-18] MEDS ORDERED: OFLOXACIN R EYE SCH (13:00)
[2022-11-18] MEDS: cefTRIAXone\\ROCEPHIN 1 GM in Sodium Chloride 0.9% 100 ML IVPB SCH (13:32)
[2022-11-18 13:42] LABS: Legionella Urinary Ag Negative (Negative); Strep pneumo Urine Ag NEGATIVE (NEGATIVE)
[2022-11-18 13:43] LABS: Legionella Urinary Ag Negative (Negative); Strep pneumo Urine Ag NEGATIVE (NEGATIVE)
[2022-11-18] MEDS: Ciprofloxacin 0.3% Ophth Soln 2.5 ml Bottle EA EYE SCH ×3 (13:48→21:46)
[2022-11-18] MEDS: Oseltamivir 75 MG CAP PO SCH (13:53)
[2022-11-18] MEDS: Azithromycin 500 MG in Sodium Chloride 0.9% 250 ML 250 ML IVPB SCH (14:39)
[2022-11-18] MEDS: prednisoLONE 1% Ophth Susp 5 ml Bottle R EYE SCH ×3 (17:28→21:47)
[2022-11-18] MEDS ORDERED: Oseltamivir 75 MG CAP PO SCH (21:00)
[2022-11-18] MEDS: Acetaminophen 325 MG TAB PO PRN (21:46)
[2022-11-18] MEDS: Mirtazapine 15 MG TAB PO SCH (21:46)
[2022-11-19 05:03] LABS: #Lymphocytes 0.8 thou/uL (1.20-3.40); #Monocytes 0.3 thou/uL (0.11-0.59); #Neutrophils 6.4 thou/uL (1.40-6.50); %Basophils 0.4 % (0.0-1.0); %Lymphocytes 10.4 % (21.0-51.0); %Monocytes 3.7 % (0.0-10.0); %Neutrophils 85.5 % (42.0-75.0); Hemoglobin 8.9 g/dL (12.0-16.0); Mean Corpuscular HGB CONC 30.6 g/dL (32.0-36.0); Mean Corpuscular Hemoglobin 28.1 pg (27.0-31.0); Mean Corpuscular Volume 91.9 fl (78.0-98.0); Mean Platelet Volume 7.2 fL (7.4-10.4); Platelet Count 147 10x3/uL (130-400); RBC Distribution Width 15.1 % (11.5-14.5); Red Blood Cell (RBC) Count 3.15 mill/uL (4.20-5.40); White Blood Cell (WBC) Count 7.5 10x3/uL (4.8-10.8)
[2022-11-19 05:22] LABS: Anion Gap 11 mmol/L (10-20); BUN (Urea Nitrogen) 28 mg/dL (9.8-20.1); Calc. Creatinine Clearance 25 mL/min (70-130); Carbon Dioxide 22 mmol/L (23-31); Chloride 112 mmol/L (98-107); Estimated GFR 68; Glucose 100 mg/dL (83-110); Potassium 3.6 mmol/L (3.5-5.1); Sodium 141 mmol/L (136-145)
[2022-11-19] MEDS ORDERED: Iopamidol 300 61% 50 ML VIAL FS ONE (09:08)
[2022-11-19] MEDS: Ciprofloxacin 0.3% Ophth Soln 2.5 ml Bottle EA EYE SCH ×4 (10:12→21:10)
[2022-11-19] MEDS: Oseltamivir 75 MG CAP PO SCH (10:13)
[2022-11-19] MEDS: Bacitracin 1 PK TOP SCH ×2 (10:13→21:10)
[2022-11-19] MEDS: Heparin 5,000 UNITS/ML VIAL SC SCH ×2 (10:13→21:11)
[2022-11-19] MEDS: guaiFENesin ER 600 MG TAB PO SCH ×2 (10:13→21:11)
[2022-11-19] MEDS: Nicotine 14 MG PATCH TD SCH (10:13)
[2022-11-19] MEDS: Folic Acid 1 MG TAB PO SCH (10:13)
[2022-11-19] MEDS: prednisoLONE 1% Ophth Susp 5 ml Bottle R EYE SCH ×4 (10:13→21:11)
[2022-11-19] MEDS ORDERED: FENTANYL 50 MCG/ML 1 ML VIAL ONE (11:43)
[2022-11-19] MEDS: traMADol HCl 50 MG TAB PO PRN (12:58)
[2022-11-19] MEDS ORDERED: Azithromycin 250 MG TAB PO SCH (14:00)
[2022-11-19] MEDS: cefTRIAXone\\ROCEPHIN 1 GM in Sodium Chloride 0.9% 100 ML IVPB SCH (14:04)
[2022-11-19] MEDS: Azithromycin 250 MG TAB PO SCH (15:47)
[2022-11-19] MEDS: Dextrose 5%-Lactated Ringers 1,000 ML IV SCH (15:47)
[2022-11-19] MEDS: Mirtazapine 15 MG TAB PO SCH (21:11)
[2022-11-19] MEDS ORDERED: Furosemide 20 MG/2 ML VIAL SLOW IVP SCH (22:30)
[2022-11-20] MEDS ORDERED: Midodrine HCl 5 MG TAB PO SCH (00:15)
[2022-11-20] MEDS: Dextrose 5%-Lactated Ringers 1,000 ML IV SCH ×3 (02:23→17:10)
[2022-11-20 04:21] LABS: Hemoglobin 10.4 g/dL (12.0-16.0); Mean Corpuscular HGB CONC 30.1 g/dL (32.0-36.0); Mean Corpuscular Hemoglobin 27.6 pg (27.0-31.0); Mean Corpuscular Volume 91.6 fl (78.0-98.0); Mean Platelet Volume 7.9 fL (7.4-10.4); Platelet Count 172 10x3/uL (130-400); RBC Distribution Width 15.2 % (11.5-14.5); Red Blood Cell (RBC) Count 3.78 mill/uL (4.20-5.40); White Blood Cell (WBC) Count 10.8 10x3/uL (4.8-10.8)
[2022-11-20 04:57] LABS: Calcium 8.7 mg/dL (7.8-10.44); Chloride 113 mmol/L (98-107); Potassium 5.1 mmol/L (3.5-5.1); Sodium 143 mmol/L (136-145)
[2022-11-20 04:58] LABS: Glucose 78 mg/dL (83-110)
[2022-11-20 04:59] LABS: Band 16 % (5-11); Carbon Dioxide 17 mmol/L (23-31); Lymphocytes 1 % (21-51); MDiff Complete? YES; Neutrophil 83 % (42-75)
[2022-11-20 05:01] LABS: Calc. Creatinine Clearance 28 mL/min (70-130); Estimated GFR 78
[2022-11-20 05:02] LABS: BUN (Urea Nitrogen) 24 mg/dL (9.8-20.1)
[2022-11-20] MEDS: Ciprofloxacin 0.3% Ophth Soln 2.5 ml Bottle EA EYE SCH ×4 (08:43→21:18)
[2022-11-20] MEDS: prednisoLONE 1% Ophth Susp 5 ml Bottle R EYE SCH ×4 (08:44→21:18)
[2022-11-20] MEDS: Heparin 5,000 UNITS/ML VIAL SC SCH ×2 (08:44→21:15)
[2022-11-20] MEDS: Nicotine 14 MG PATCH TD SCH (08:45)
[2022-11-20] MEDS: Bacitracin 1 PK TOP SCH ×2 (08:45→21:17)
[2022-11-20] MEDS: Folic Acid 1 MG TAB PO SCH (08:45)
[2022-11-20] MEDS: Oseltamivir 75 MG CAP PO SCH (08:45)
[2022-11-20] MEDS: guaiFENesin ER 600 MG TAB PO SCH ×2 (08:45→21:15)
[2022-11-20 11:38] LABS: Anion Gap 18 mmol/L (10-20)
[2022-11-20] MEDS: cefTRIAXone\\ROCEPHIN 1 GM in Sodium Chloride 0.9% 100 ML IVPB SCH (13:34)
[2022-11-20] MEDS: Azithromycin 250 MG TAB PO SCH (14:58)
[2022-11-20] MEDS ORDERED: Furosemide 20 MG/2 ML VIAL SLOW IVP SCH (15:45)
[2022-11-20] MEDS: Acetaminophen 325 MG TAB PO PRN (21:14)
[2022-11-20] MEDS: Mirtazapine 15 MG TAB PO SCH (21:15)
[2022-11-21] MEDS: traMADol HCl 50 MG TAB PO PRN (02:29)
[2022-11-21] MEDS ORDERED: HumaLOG 300 UNITS/3 ML VIAL SC PRN (03:25)
[2022-11-21 04:59] LABS: Hemoglobin 10.5 g/dL (12.0-16.0); Mean Corpuscular HGB CONC 29.6 g/dL (32.0-36.0); Mean Corpuscular Volume 94.4 fl (78.0-98.0); Mean Platelet Volume 7.9 fL (7.4-10.4); Platelet Count 170 10x3/uL (130-400); RBC Distribution Width 15.3 % (11.5-14.5); Red Blood Cell (RBC) Count 3.74 mill/uL (4.20-5.40); White Blood Cell (WBC) Count 9.4 10x3/uL (4.8-10.8)
[2022-11-21 05:11] LABS: Anion Gap 17 mmol/L (10-20); BUN (Urea Nitrogen) 24 mg/dL (9.8-20.1); Calc. Creatinine Clearance 22 mL/min (70-130); Calcium 8.4 mg/dL (7.8-10.44); Carbon Dioxide 19 mmol/L (23-31); Chloride 111 mmol/L (98-107); Estimated GFR 60; Glucose 222 mg/dL (83-110); Potassium 3.8 mmol/L (3.5-5.1); Sodium 143 mmol/L (136-145)
[2022-11-21] MEDS: Dextrose 5%-Lactated Ringers 1,000 ML IV SCH ×2 (05:34→19:10)
[2022-11-21 05:37] LABS: #Basophils 0.1 thou/uL (0.0-0.2); #Lymphocytes 0.3 thou/uL (1.20-3.40); #Monocytes 0.2 thou/uL (0.11-0.59); #Neutrophils 8.7 thou/uL (1.40-6.50); %Basophils 1.1 % (0.0-1.0); %Eosinophils 0.1 % (0.0-10.0); %Lymphocytes 3.6 % (21.0-51.0); %Monocytes 1.8 % (0.0-10.0); %Neutrophils 93.5 % (42.0-75.0); Band 7 % (5-11); Hypochromia SLIGHT = 6-15 cells (100X) (0-5/hpf); Lymphocytes 2 % (21-51); MDiff Complete? YES; Monocytes 2 % (0-10); Neutrophil 89 % (42-75); Platelet Morphology Comment Appears Adequate
[2022-11-21] MEDS: Bacitracin 1 PK TOP SCH ×2 (08:58→21:42)
[2022-11-21] MEDS: Folic Acid 1 MG TAB PO SCH (08:58)
[2022-11-21] MEDS: guaiFENesin ER 600 MG TAB PO SCH ×2 (08:58→21:43)
[2022-11-21] MEDS: Nicotine 14 MG PATCH TD SCH (08:58)
[2022-11-21] MEDS: Oseltamivir 6 MG/ML ORAL SUSP PO SCH (08:58)
[2022-11-21] MEDS: prednisoLONE 1% Ophth Susp 5 ml Bottle R EYE SCH ×4 (08:58→21:43)
[2022-11-21] MEDS: Heparin 5,000 UNITS/ML VIAL SC SCH ×2 (08:58→21:43)
[2022-11-21] MEDS: Ciprofloxacin 0.3% Ophth Soln 2.5 ml Bottle EA EYE SCH ×4 (08:59→21:42)
[2022-11-21] MEDS: Azithromycin 250 MG TAB PO SCH (14:01)
[2022-11-21] MEDS: cefTRIAXone\\ROCEPHIN 1 GM in Sodium Chloride 0.9% 100 ML IVPB SCH (14:01)
[2022-11-21] MEDS: Mirtazapine 15 MG TAB PO SCH (21:42)
[2022-11-22 05:01] LABS: #Lymphocytes 0.8 thou/uL (1.20-3.40); #Monocytes 0.3 thou/uL (0.11-0.59); #Neutrophils 10.3 thou/uL (1.40-6.50); %Lymphocytes 6.6 % (21.0-51.0); %Monocytes 2.9 % (0.0-10.0); %Neutrophils 90.5 % (42.0-75.0); Hemoglobin 10.1 g/dL (12.0-16.0); Mean Corpuscular HGB CONC 30.1 g/dL (32.0-36.0); Mean Corpuscular Hemoglobin 27.9 pg (27.0-31.0); Mean Corpuscular Volume 92.7 fl (78.0-98.0); Mean Platelet Volume 9.1 fL (7.4-10.4); Platelet Count 136 10x3/uL (130-400); RBC Distribution Width 14.9 % (11.5-14.5); Red Blood Cell (RBC) Count 3.63 mill/uL (4.20-5.40); White Blood Cell (WBC) Count 11.4 10x3/uL (4.8-10.8)
[2022-11-22 05:24] LABS: Anion Gap 16 mmol/L (10-20); BUN (Urea Nitrogen) 30 mg/dL (9.8-20.1); Calc. Creatinine Clearance 21 mL/min (70-130); Calcium 8.6 mg/dL (7.8-10.44); Carbon Dioxide 21 mmol/L (23-31); Chloride 114 mmol/L (98-107); Estimated GFR 55; Glucose 130 mg/dL (83-110); Potassium 4.2 mmol/L (3.5-5.1); Sodium 147 mmol/L (136-145)
[2022-11-22] MEDS: Dextrose 5%-Lactated Ringers 1,000 ML IV SCH (06:12)
[2022-11-22] MEDS: guaiFENesin ER 600 MG TAB PO SCH ×2 (09:52→21:40)
[2022-11-22] MEDS: Bacitracin 1 PK TOP SCH ×2 (09:52→21:39)
[2022-11-22] MEDS: Heparin 5,000 UNITS/ML VIAL SC SCH ×2 (09:52→21:40)
[2022-11-22] MEDS: prednisoLONE 1% Ophth Susp 5 ml Bottle R EYE SCH ×4 (09:53→21:40)
[2022-11-22] MEDS: Ciprofloxacin 0.3% Ophth Soln 2.5 ml Bottle EA EYE SCH ×4 (09:53→21:40)
[2022-11-22] MEDS: Folic Acid 1 MG TAB PO SCH (09:53)
[2022-11-22] MEDS: Nicotine 14 MG PATCH TD SCH (09:56)
[2022-11-22] MEDS: Oseltamivir 6 MG/ML ORAL SUSP PO SCH (10:00)
[2022-11-22] MEDS: cefTRIAXone\\ROCEPHIN 1 GM in Sodium Chloride 0.9% 100 ML IVPB SCH (15:40)
[2022-11-22] MEDS: Dextrose 50% Abboject 50 ML SYRINGE SLOW IVP PRN (18:23)
[2022-11-22 19:04] LABS: Troponin I 0.295 ng/mL (< 0.028)
[2022-11-22] MEDS ORDERED: Methyl Salicylate/Menthol 85 GM TUBE TOP PRN (20:17)
[2022-11-22] MEDS: Mirtazapine 15 MG TAB PO SCH (21:40)
[2022-11-22 21:53] LABS: Critical Call Chem Troponin I RESULT DECREASING; Troponin I 0.246 ng/mL (< 0.028)
[2022-11-23] MEDS ORDERED: Sodium Chloride 0.9% 500 ML IV SCH (02:15)
[2022-11-23] MEDS: Dextrose 50% Abboject 50 ML SYRINGE SLOW IVP PRN (04:42)
[2022-11-23] MEDS: Dextrose 5%-Lactated Ringers 1,000 ML IV SCH (04:51)
[2022-11-23] MEDS ORDERED: Midodrine HCl 5 MG TAB PO SCH (05:00)
[2022-11-23 05:02] LABS: #Lymphocytes 0.6 thou/uL (1.20-3.40); #Monocytes 0.4 thou/uL (0.11-0.59); #Neutrophils 8.3 thou/uL (1.40-6.50); %Eosinophils 0.1 % (0.0-10.0); %Lymphocytes 6.2 % (21.0-51.0); %Monocytes 4.6 % (0.0-10.0); %Neutrophils 89.1 % (42.0-75.0); Hemoglobin 9.8 g/dL (12.0-16.0); Mean Corpuscular HGB CONC 31.2 g/dL (32.0-36.0); Mean Corpuscular Hemoglobin 29.1 pg (27.0-31.0); Mean Corpuscular Volume 93.2 fl (78.0-98.0); Mean Platelet Volume 9.2 fL (7.4-10.4); Platelet Count 144 10x3/uL (130-400); Red Blood Cell (RBC) Count 3.37 mill/uL (4.20-5.40); White Blood Cell (WBC) Count 9.4 10x3/uL (4.8-10.8)
[2022-11-23 05:25] LABS: Anion Gap 14 mmol/L (10-20); BUN (Urea Nitrogen) 34 mg/dL (9.8-20.1); Calc. Creatinine Clearance 23 mL/min (70-130); Calcium 8.7 mg/dL (7.8-10.44); Carbon Dioxide 23 mmol/L (23-31); Chloride 115 mmol/L (98-107); Estimated GFR 63; Glucose 96 mg/dL (83-110); Magnesium 1.6 mg/dL (1.6-2.6); Potassium 3.9 mmol/L (3.5-5.1); Sodium 148 mmol/L (136-145)
[2022-11-23] MEDS: Heparin 5,000 UNITS/ML VIAL SC SCH (08:01)
[2022-11-23] MEDS: Ciprofloxacin 0.3% Ophth Soln 2.5 ml Bottle EA EYE SCH ×2 (08:02→14:03)
[2022-11-23] MEDS: Bacitracin 1 PK TOP SCH (08:02)
[2022-11-23] MEDS: Folic Acid 1 MG TAB PO SCH (08:02)
[2022-11-23] MEDS: Nicotine 14 MG PATCH TD SCH (08:02)
[2022-11-23] MEDS: prednisoLONE 1% Ophth Susp 5 ml Bottle R EYE SCH ×2 (08:02→14:03)
[2022-11-23] MEDS: guaiFENesin ER 600 MG TAB PO SCH (08:03)
[2022-11-23 13:57] VITALS: BP 56/37; TEMP 96.2
== END 2022-11-23 15:52 | disposition expired | DRG 871 ==
LOC: ERS 05:56 → ERHOLD 10:22 → 2NO 21:01
PROVIDERS: ADMIT Internal Medicine; ATTEND Internal Medicine
PROC: 3E03329 Introduction of Other Anti-infective into Peripheral Vein, Percutaneous Approach (ICD-10-PCS; principal; 2022-11-17)
PROC: 0T9430Z Drainage of Left Kidney Pelvis with Drainage Device, Percutaneous Approach (ICD-10-PCS; 2022-11-19)
PROC: 0T9330Z Drainage of Right Kidney Pelvis with Drainage Device, Percutaneous Approach (ICD-10-PCS; 2022-11-19)
DX: A41.9 Sepsis, unspecified organism (principal); R65.20 Severe sepsis without septic shock; Z66 Do not resuscitate; Z20.822 Contact with and (suspected) exposure to COVID-19; E43 Unspecified severe protein-calorie malnutrition; J18.9 Pneumonia, unspecified organism; J10.00 Influenza due to other identified influenza virus with unspecified type of pneumonia; I21.4 Non-ST elevation (NSTEMI) myocardial infarction; J96.91 Respiratory failure, unspecified with hypoxia; Z68.1 Body mass index [BMI] 19.9 or less, adult; R64 Cachexia; N17.9 Acute kidney failure, unspecified; C78.5 Secondary malignant neoplasm of large intestine and rectum; F17.210 Nicotine dependence, cigarettes, uncomplicated; E86.0 Dehydration; I50.9 Heart failure, unspecified; S00.83XA Contusion of other part of head, initial encounter; E16.2 Hypoglycemia, unspecified; D64.9 Anemia, unspecified; Y92.000 Kitchen of unspecified non-institutional (private) residence as the place of occurrence of the external cause; W01.0XXA Fall on same level from slipping, tripping and stumbling without subsequent striking against object, initial encounter; Z85.43 Personal history of malignant neoplasm of ovary; Z79.899 Other long term (current) drug therapy; Z87.440 Personal history of urinary (tract) infections; Z90.49 Acquired absence of other specified parts of digestive tract; Z90.710 Acquired absence of both cervix and uterus; Z98.890 Other specified postprocedural states
CPT/HCPCS: 36415; 36416; 50431; 50435; 70450; 71045; 72125; 74177; 80048; 80053; 82533; 83605; 83690; 83735; 83880; 84100; 84145; 84443; 84484; 85025; 87040; 87449; 87633; 87899; 93005; 93010; 94640; 96365; 96366; 96375; 97139; C1729; J0456; J0696; J1644; J1815; J1940; J2543; J3010; J3371; J3490; J7030; J7050; J7620; J7999; Q9967; U0003; U0005